=== PATIENT | male | born 1960 | race Asian ===

== ENCOUNTER 2016-11-02 17:46 | Inpatient (IN) | payer MEDICAID, MEDICARE ==
--- NOTE | 2016-11-02 18:05 | ED Physician Chart ---
Chief Complaint/HPI - Patient Information Date Seen:: 11/02/16 Time Seen:: 17:50 Chief Complaint:: shortness of breath History of Present Illness:: After having received dialysis today this patient in the ambulance on the way back to his detention facility developed chest pain and shortness of breath. His pulse ox was 85% on room air. Patient denies chest pain at present. Allergies:: Allergies Allergy/AdvReac Type Severity Reaction Status Date / Time No Known Allergies Allergy Verified 11/02/16 17:53 Historian:: Patient Review:: Nurse's Note Reviewed Review of Systems - Review of Systems General/Constitutional: No fever, No chills Skin: No skin lesions Head: No headache Eyes: No loss of vision ENT: No earache Neck: No neck pain, No thyromegaly Cardio Vascular: Chest pain Pulmonary: SOB GI: No nausea, No vomiting, No diarrhea G/U: No dysuria, No frequency, No hematuria Musculoskeletal: No bone or joint pain, No back pain, No muscle pain Endocrine: No polyuria, No polydipsia Psychiatric: No prior psych history Hematopoietic: No bruising Neurological: No syncope, No focal symptoms Past Medical History - Past Medical History Past Medical History: HTN, CHF, PUD/GERD, Thyroid disorder, Other (anxiety; anemia; renal failure on dialysis; hypothyroidism;pneumonia; status post respiratory failure) Family History: Other (unavailable) Social History: Care Facility Surgical History: other (dialysis shunt; sternotomy) Psychiatricy History: Other (anxiety) Medication: Reviewed Family Medical History - Family Member Mother History Unknown: Yes Physical Exam - Physical Examination General/Constitutional: No distress Head: Atraumatic Eyes: Lids, conjuctiva normal, PERRL Other Skin comments:: Hyperpigmentation of the skin of the lower extremities ENMT: External ears, nose nl, Lips, teeth, gums nl (3 out of 4 poor dental high) Neck: No nuchal rigidity Respiratory: Nl effort/Exclusion, Clear to Auscultation, No Wheeze/Rhonchi/Rales Cardio Vascular: RRR, NL S1 S2 Other Cardio Vascular comments:: 4/6 systolic murmur GI: No tenderness/rebounding/guarding, No organomegaly : No CVA tenderness Extremities: No tenderness or effusion, No edema Neuro/Psych: No focal deficits Labs/Radiology/EKG Results - Lab Results Results: Laboratory Results - last 24 hr 11/02/16 11/02/16 11/02/16 18:18 18:18 18:18 WBC 9.3 RBC 3.32 L Hgb 10.8 L Hct 34.2 L MCV 102.9 H MCH 32.6 H MCHC Differential 31.7 RDW 16.8 Plt Count 116 L MPV 7.4 Neutrophils % 82.9 H Band Neutrophils % 0 Lymphocytes % 4.2 L Monocytes % 12.0 H Eosinophils % 1.3 Basophils % 0.0 Neutrophils (Manual) 80 Lymphocytes 6 L Monocytes 12 H Eosinophils 2 Basophils 0 Platelet Estimate ADEQUATE Platelet Morphology NORMAL RBC Morph Micro Appear NORMAL Sodium 136 Potassium 3.8 Chloride 103 Carbon Dioxide 31.0 Anion Gap 5.8 L BUN 27 H Creatinine 3.5 H Est GFR ( Amer) 23.6 Est GFR (Non-Af Amer) 19.5 BUN/Creatinine Ratio 7.7 Glucose 131 H Calcium 8.5 L Troponin I 0.03 - Radiology Results Results: CXR: cardiomegaly; pulmonary congestion; aortic graft. - EKG Interpretations Rate & Rhythm: NSR rate 91 [place]y: normal Comments:: [facility] ED Septic Shock - . Is Septic Shock (SBP<90, OR Lactate>4 mmol\L) present?: No Reassessment (Disposition) - Reassessment Reassessment Condition:: Unchanged, Improved - Diagnosis Diagnosis:: Atypical chest pain; renal failure on dialysis; hypoxemia - Patient Disposition Admitted to:: Telemetry Admitting Medical Physician:: Kiet Leger Condition at Disposition:: Stable, Improved
[2016-11-02 18:28] LABS: HEMATOCRIT 34.2 % (39.0-49.0); HEMOGLOBIN 10.8 gm/dL (13.2-17.3); MEAN CELL VOLUME 102.9 fl (80-99); MEAN CORPUSCULAR HEMOGLOBIN 32.6 pg (26.0-30.0); MEAN CORPUSCULAR HGB CONC 31.7 pg (28.0-36.0); MEAN PLATELET VOLUME 7.4 fl; NEUTROPHILE ABSOLUTE 7.7 Th/cmm (1.8-8.0); PLATELET COUNT 116 Th/cmm (150-400); RED BLOOD COUNT 3.32 Mil/cmm (4.30-5.70); RED CELL DISTRIBUTION WIDTH 16.8 % (11.5-20.0); WHITE BLOOD COUNT 9.3 Th/cmm (4.8-10.8)
[2016-11-02 18:39] LABS: TOTAL CELLS COUNTED 100
[2016-11-02 18:40] LABS: ANION GAP 5.8 (7.0-16.0); BUN/CREATININE RATIO 7.7; CALCIUM SERUM 8.5 mg/dL (8.6-10.3); CREATININE - SERUM 3.5 mg/dL (0.7-1.3); POTASSIUM SERUM 3.8 mEq/L (3.5-5.1)
[2016-11-02 18:42] LABS: BAND NEUTROPHILE 0 % (0-10); NEUTROPHILS 80 % (40-80)
[2016-11-02 18:43] LABS: BASOPHIL 0 % (0-3); EOSINOPHIL 2 % (0-5); PLATELET ESTIMATE ADEQUATE (NORMAL); PLATELET MORPHOLOGY NORMAL (NORMAL)
[2016-11-02 19:06] LABS: % NEUTROPHILS 82.9 % (40.0-80.0)
[2016-11-02 19:07] LABS: % LYMPHOCYTES 4.2 % (20.0-50.0)
[2016-11-02 19:08] LABS: % EOSINOPHILS 1.3 % (0.0-5.0)
[2016-11-02] MEDS ORDERED: Albuterol/Ipratropium Neb 3 ML AERS HHN ONE ×2 (19:55→20:17)
[2016-11-02] MEDS ORDERED: Non-Formulary Item 1 EA (Fluticasone/Salmeterol [Advair 250-50 Diskus] 1 PUFF) INH PRN (20:49)
[2016-11-02] MEDS: Albuterol/Ipratropium Neb 3 ML AERS HHN SCH (23:37)
[2016-11-03] MEDS: NITROGLYCERIN OINT 2% 1 INCH PACKET TP SCH ×3 (00:09→12:30)
[2016-11-03 05:35] LABS: MAGNESIUM 2.3 mg/dL (1.9-2.7)
--- NOTE | 2016-11-03 08:56 | History and Physical ---
History of Present Illness - HPI Chief Complaint: This patient is unable to provide history. HPI: 56-year-old [place] male who resides in a local [facility] currently getting his dialysis 3 times a week from local dialysis center. Yesterday after finishing his dialysis he was on his way to [facility] ,He complained about chest pain and shortness of breath ,patient was directed to the emergency room at [facility]. patient was seen by [facility] emergency room Igor and subsequently admitted to the hospital after being worked up in the emergency room. As per staff patient was able to eat and that his breakfast and he went to sleep. Patient's doesn't want to talk today. Vital Signs: Last Vital Signs Temp 97 F 11/03/16 04:00 Pulse 90 11/03/16 06:28 Resp 22 11/03/16 04:00 BP 130/80 11/03/16 06:28 Pulse Ox 95 11/03/16 04:00 Past Medical History Cardiovascular: Report: CHF, Other (Possible aortic wall repair versus irritable surgery) Pulmonary: Report: No Pertinent Hx [employer]: Report: No Pertinent Hx GI: Report: No Pertinent Hx Psych: Report: Depression Musculoskeletal: Report: Weakness Rheumatologic: Report: No pertinent Hx Infectious Disease: Report: No Pertinent Hx Renal/: Report: No Pertinent Hx Endocrine: Report: No Pertinent Hx Dermatology: Report: No Pertinent Hx - Past Surgical History Past Surgical History: Other (Sternotomy scar per possible aorta versus aortic wall replacement) Family Medical History - Family Member Mother History Unknown: Yes Social History Smoke: No Alcohol: None Drugs: None Lives: Care Home - Medications Home Medications: Home Medication Medication Instructions Recorded Type Acetaminophen [Tylenol] 2 tab PO Q6HR PRN 11/02/16 History Albuterol/Ipratropium Neb [Duoneb 3 ml HHN Q2HR PRN 11/02/16 History Neb] Albuterol/Ipratropium Neb [Duoneb 3 ml HHN Q4HR 11/02/16 History Neb] Amlodipine Besylate 5 mg PO DAILY 11/02/16 History Bisacodyl [Dulcolax 10 Mg Supp] 10 mg RC DAILY PRN 11/02/16 History Calcitriol [Rocaltrol] 0.25 mcg PO DAILY 11/02/16 History Calcium Acetate [Phoslo] 667 mg PO DAILY 11/02/16 History Clonidine HCl [Catapres] 0.1 mg PO Q6HR PRN 11/02/16 History Famotidine [Pepcid] 20 mg PO BID 11/02/16 History Fluticasone/Salmeterol [Advair 1 puff INH BID PRN 11/02/16 History 250-50 Diskus] Folic Acid [Folate] 1 mg PO DAILY 11/02/16 History Folic Acid/Vit Bcomp,C 0.8 mg PO DAILY 11/02/16 History [Nephro-Mary Lou Tablet] Hydrocodone/Acetaminophen [[place] 1 each PO Q6HR PRN 11/02/16 History 325 mg-5 mg*] Ipratropium/Albuterol Sulfate 3 ml IH DAILY 11/02/16 History [Iprat-Albut 0.5-3(2.5) mg/3 ml] Levothyroxine [Synthroid] 50 mcg PO DAILY 11/02/16 History Lorazepam [Ativan] 0.5 mg PO Q6HR PRN 11/02/16 History Magnesium Hydroxide [Milk of 30 ml PO DAILY PRN 11/02/16 History Magnesia] Metoprolol Tartrate 25 mg PO DAILY 11/02/16 History Na Phos,M-B/Na Phos,Di-Ba [Enema 7 133 ml RC Q8HR PRN 11/02/16 History gm/118 ml-19 gm/118 ml 133 ml] Ondansetron [Zofran ODT] 4 mg PO Q6HR PRN 11/02/16 History Sennosides A and B [Senna] 8.6 mg PO DAILY 11/02/16 History - Allergies Allergies/Adverse Reactions: Allergies Allergy/AdvReac Type Severity Reaction Status Date / Time No Known Allergies Allergy Verified 11/02/16 17:53 Review of Systems - Review of Systems Constitutional: Report: No Significant Eyes: Report: No Significant ENT: Report: No Significant Respiratory: Report: Cough, SOB with Excertion Cardiovascular: Report: Chest Pain, Orthopnea Gastrointestinal: Report: No Significant Genitourinary: Report: No Significant Musculoskeletal: Report: No Significant Skin: Report: No Significant Neurological: Report: No Significant Physical Exam - Physical Exam HEENT: Report: Pale Conjunctiva Neck: Report: Thyromegaly (neck when the Stensen's noted.) Cardiovascular Systems: Report: Systolic Murmur, Irregular rhythm was noted Respiratory: Report: Crackles Abdomen: Report: Non-tender to palpation Back: Report: Inspection of back is within normal limits. Extremities: Report: Non-tender to palpation., No pedal edema was noted on inspection Skin: Report: Color of skin is within normal limits Neuro/Psych: Report: Weakness or sensory loss noted. - Lab Results All Lab Results last 24 hours: Laboratory Last Values WBC 9.3 Th/cmm (4.8-10.8) 11/02/16 18:18 RBC 3.32 Mil/cmm (4.30-5.70) L 11/02/16 18:18 Hgb 10.8 gm/dL (13.2-17.3) L 11/02/16 18:18 Hct 34.2 % (39.0-49.0) L 11/02/16 18:18 MCV 102.9 fl (80-99) H 11/02/16 18:18 MCH 32.6 pg (26.0-30.0) H 11/02/16 18:18 MCHC Differential 31.7 pg (28.0-36.0) 11/02/16 18:18 RDW 16.8 % (11.5-20.0) 11/02/16 18:18 Plt Count 116 Th/cmm (150-400) L 11/02/16 18:18 MPV 7.4 fl 11/02/16 18:18 Neutrophils % 82.9 % (40.0-80.0) H 11/02/16 18:18 Band Neutrophils % 0 % (0-10) 11/02/16 18:18 Lymphocytes % 4.2 % (20.0-50.0) L 11/02/16 18:18 Monocytes % 12.0 % (2.0-10.0) H 11/02/16 18:18 Eosinophils % 1.3 % (0.0-5.0) 11/02/16 18:18 Basophils % 0.0 % (0.0-2.0) 11/02/16 18:18 Neutrophils (Manual) 80 % (40-80) 11/02/16 18:18 Lymphocytes 6 % (20-50) L 11/02/16 18:18 Monocytes 12 % (2-10) H 11/02/16 18:18 Eosinophils 2 % (0-5) 11/02/16 18:18 Basophils 0 % (0-3) 11/02/16 18:18 Platelet Estimate ADEQUATE (NORMAL) 11/02/16 18:18 Platelet Morphology NORMAL (NORMAL) 11/02/16 18:18 RBC Morph Micro Appear NORMAL (NORMAL) 11/02/16 18:18 Sodium 136 mEq/L (136-145) 11/02/16 18:18 Potassium 3.8 mEq/L (3.5-5.1) 11/02/16 18:18 Chloride 103 mEq/L (98-107) 11/02/16 18:18 Carbon Dioxide 31.0 mEq/L (21.0-31.0) 11/02/16 18:18 Anion Gap 5.8 (7.0-16.0) L 11/02/16 18:18 BUN 27 mg/dL (7-25) H 11/02/16 18:18 Creatinine 3.5 mg/dL (0.7-1.3) H 11/02/16 18:18 Est GFR ( Amer) 23.6 ml/min (>90) 11/02/16 18:18 Est GFR (Non-Af Amer) 19.5 ml/min 11/02/16 18:18 BUN/Creatinine Ratio 7.7 11/02/16 18:18 Glucose 131 mg/dL (70-105) H 11/02/16 18:18 Calcium 8.5 mg/dL (8.6-10.3) L 11/02/16 18:18 Magnesium 2.3 mg/dL (1.9-2.7) 11/03/16 02:29 Troponin I 0.02 ng/mL (0.01-0.05) 11/03/16 02:29 Triglycerides 80 mg/dL (<150) 11/03/16 02:29 Cholesterol 138 mg/dL (<200) 11/03/16 02:29 LDL Cholesterol Direct 60 mg/dL (75-193) L 11/03/16 02:29 HDL Cholesterol 59 mg/dL (23-92) 11/03/16 02:29 Laboratory Results - last 24 hr 11/03/16 11/03/16 02:29 02:29 Magnesium 2.3 Troponin I 0.02 Triglycerides 80 Cholesterol 138 LDL Cholesterol Direct 60 L HDL Cholesterol 59 - Assessment Assessment: Acute onset of chest pain shortness of breath etiology needs to determine. Most likely of fluid overload versus congestive heart failure. End-stage renal disease on hemodialysis. Hypertension. Status post aorta versus aortic wall replacement surgery. Generalized debility. Asthma versus COPD. Declining self-care and mobility Anemia of chronic kidney disease - Plan Plan: Admit to telemetry unit. Cardiology consult. Oxygen. Nebulizer treatment. Hemodialysis. 2-D echocardiogram. Cardiac enzymes. General nursing care. Follow lab. Pulmicort. Albuterol and an Atrovent HHN. Follow consultants recommendation. Nephrology evaluation. Appropriate home medication reconciliation. EKG. PTOT. Care plan reviewed and discussed with staff.
[2016-11-03] MEDS: Levothyroxine 0.05 Mg Tab PO SCH (08:59)
[2016-11-03] MEDS: Vitamin B Complex w/Vitamin C Tab PO SCH (09:06)
--- NOTE | 2016-11-03 11:23 | Diagnostic Imaging Report ---
Portable chest x-ray HISTORY: Shortness of breath Compared to prior exam of November 02, 2016, there is evidence of increasing right pleural effusion. Persistent marked cardiomegaly. No change in findings consistent with aneurysmal dilatation of the aortic arch. Intravascular stent traverses the descending thoracic aorta. An additional stent is seen in the region of the left subclavian artery. There are hazy bilateral infiltrates. Findings may be associated with edema related to congestive heart failure. IMPRESSION: 1. Increasing right pleural effusion along with cardiomegaly and bilateral infiltrates suggesting increasing congestive heart failure. 2. Extensive surgical changes as noted above.
[2016-11-03] MEDS: Albuterol/Ipratropium Neb 3 ML AERS HHN SCH ×2 (12:14→17:17)
--- NOTE | 2016-11-03 13:05 | Diagnostic Imaging Report ---
Portable chest x-ray HISTORY: Shortness of breath Prior exams are not available for comparison. The heart is enlarged. There is enlargement of the aortic arch suggesting aneurysm formation. Intravascular stent traverses the aorta. Vascular stent also noted over the region of the left subclavian artery. Multiple surgical clips project over the periclavicular regions of the chest. Hazy infiltrates noted bilaterally probably related to degree of pulmonary edema. Bilateral pleural effusions (right greater than left). IMPRESSION: 1. Changes consistent with congestive heart failure as described above 2. Surgical changes consistent with aortic aneurysm repair/stent placement
--- NOTE | 2016-11-03 15:25 | Consultation ---
Consult Note - Consult Note Service Date: 11/03/16 Consult Note: PHYSICIAN Consultation Note: Date of Admission: 11/02/16 Purpose of Consultation: Hemodialysis Chief Complaint: Patient came in because of chest pain. History of Present Illness: 56-year-old male with past medical history end-stage renal disease on hemodialysis who came in because of chest pain. Patient has a history of chronic CHF and respiratory distress. He has been dialyzed aggressively. He also has history of anxiety during treatment which interferes with his dialysis. A few hours prior to admission, he complained of chest pain along with shortness of breath after his dialysis treatment, on his way to [facility]. He was then brought to the emergency room. Chest x-ray revealed possible CHF. Troponin levels were 0.03 and 0.02. No fever/chills, cough, palpitations or diaphoresis. Past Medical History: ESRD on hemodialysis Essent's sleeping but comfortable, ial hypertension GERD Anxiety disorder Hypothyroidism Chronic CHF Allergies Allergy/AdvReac Type Severity Reaction Status Date / Time No Known Allergies Allergy Verified 11/02/16 17:53 Vital Signs Temp 98.7 F 11/03/16 11:57 Pulse 72 11/03/16 12:30 Resp 20 11/03/16 12:25 BP 95/61 11/03/16 12:30 Pulse Ox 95 11/03/16 12:25 Intake & Output 11/02/16 11/03/16 11/03/16 18:59 06:59 18:59 Intake Total 60 Balance 60 Weight (lbs) 53.977 kg Intake: Oral 60 Other: # Voids 1 # Bowel Movements 1 Laboratory Results - last 24 hr 11/03/16 11/03/16 11/03/16 02:29 02:29 10:30 Magnesium 2.3 Troponin I 0.02 0.02 Triglycerides 80 Cholesterol 138 LDL Cholesterol Direct 60 L HDL Cholesterol 59 Home Medication Medication Instructions Recorded Type Acetaminophen [Tylenol] 2 tab PO Q6HR PRN 11/02/16 History Albuterol/Ipratropium Neb [Duoneb 3 ml HHN Q2HR PRN 11/02/16 History Neb] Albuterol/Ipratropium Neb [Duoneb 3 ml HHN Q4HR 11/02/16 History Neb] Amlodipine Besylate 5 mg PO DAILY 11/02/16 History Bisacodyl [Dulcolax 10 Mg Supp] 10 mg RC DAILY PRN 11/02/16 History Calcitriol [Rocaltrol] 0.25 mcg PO DAILY 11/02/16 History Calcium Acetate [Phoslo] 667 mg PO DAILY 11/02/16 History Clonidine HCl [Catapres] 0.1 mg PO Q6HR PRN 11/02/16 History Famotidine [Pepcid] 20 mg PO BID 11/02/16 History Fluticasone/Salmeterol [Advair 1 puff INH BID PRN 11/02/16 History 250-50 Diskus] Folic Acid [Folate] 1 mg PO DAILY 11/02/16 History Folic Acid/Vit Bcomp,C 0.8 mg PO DAILY 11/02/16 History [Nephro-Mary Lou Tablet] Hydrocodone/Acetaminophen [[place] 1 each PO Q6HR PRN 11/02/16 History 325 mg-5 mg*] Ipratropium/Albuterol Sulfate 3 ml IH DAILY 11/02/16 History [Iprat-Albut 0.5-3(2.5) mg/3 ml] Levothyroxine [Synthroid] 50 mcg PO DAILY 11/02/16 History Lorazepam [Ativan] 0.5 mg PO Q6HR PRN 11/02/16 History Magnesium Hydroxide [Milk of 30 ml PO DAILY PRN 11/02/16 History Magnesia] Metoprolol Tartrate 25 mg PO DAILY 11/02/16 History Na Phos,M-B/Na Phos,Di-Ba [Enema 7 133 ml RC Q8HR PRN 11/02/16 History gm/118 ml-19 gm/118 ml 133 ml] Ondansetron [Zofran ODT] 4 mg PO Q6HR PRN 11/02/16 History Sennosides A and B [Senna] 8.6 mg PO DAILY 11/02/16 History Current Medications Generic Name Dose Route Start Last Admin Trade Name Freq PRN Reason Stop Dose Admin Acetaminophen 650 mg 11/02/16 20:41 Tylenol PO 01/01/17 20:40 Q6H PRN Mild Pain/Headache/T above 101 Albuterol/Ipratropium 3 ml 11/03/16 01:00 11/03/16 12:14 Duoneb Neb HHN 01/02/17 00:59 3 ml Q6HRT OMYARA Administration Aspirin 81 mg 11/03/16 09:00 11/03/16 08:58 Ecotrin PO 01/02/17 08:59 81 mg DAILY OMAYRA Administration Bisacodyl 10 mg 11/02/16 20:49 Dulcolax 10 Mg Supp RC 01/01/17 20:48 DAILY PRN Constipation Budesonide 0.5 mg 11/03/16 12:00 Pulmicort HHN 01/02/17 11:59 BIDRT OMAYRA Calcitriol 0.25 mcg 11/03/16 09:00 11/03/16 08:59 Rocaltrol PO 01/02/17 08:59 0.25 mcg DAILY OMAYRA Administration Calcium Acetate 667 mg 11/03/16 09:00 11/03/16 08:59 Phoslo PO 01/02/17 08:59 667 mg DAILY OMAYRA Administration Famotidine 20 mg 11/03/16 09:00 11/03/16 08:58 Pepcid PO 01/02/17 08:59 20 mg BID OMAYRA Administration Folic Acid 1 mg 11/03/16 09:00 11/03/16 09:00 Folate PO 01/02/17 08:59 1 mg DAILY OMAYRA Administration Levothyroxine Sodium 0.05 mg 11/03/16 09:00 11/03/16 08:59 Synthroid PO 01/02/17 08:59 0.05 mg DAILY OMAYRA Administration Lorazepam 0.5 mg 11/02/16 20:49 11/02/16 23:03 Ativan PO 01/01/17 20:48 0.5 mg Q6HR PRN Administration Agitation Protocol Metoprolol Tartrate 25 mg 11/03/16 09:00 11/03/16 08:58 Lopressor PO 01/02/17 08:59 25 mg BID OMAYRA Administration Miscellaneous 1 ea 11/03/16 12:32 Clinical Monitoring 01/02/17 12:31 DAILY PRN RENAL Morphine Sulfate 2 mg 11/02/16 20:41 Morphine IVP 01/01/17 20:40 Q4H PRN Severe Pain Nitroglycerin 1 inch 11/03/16 00:00 11/03/16 12:30 Nitro-Bid TP 01/02/17 00:00 Not Given Q6HR OMAYRA Ondansetron HCl 4 mg 11/02/16 20:49 Zofran Odt PO 01/01/17 20:48 Q6HR PRN Nausea / Vomiting Senna 8.6 mg 11/03/16 09:00 11/03/16 09:06 Senna PO 01/02/17 08:59 8.6 mg DAILY OMAYRA Administration Simvastatin 40 mg 11/02/16 21:00 11/02/16 23:03 Zocor PO 01/01/17 20:59 40 mg HS OMAYRA Administration Protocol Sodium Chloride 10 ml 11/03/16 08:00 11/03/16 08:00 Saline Flush IV 01/02/17 07:59 10 ml QSHIFT OMAYRA Administration Vitamin B Complex/Vit C/Folic Acid 1 tab 11/03/16 09:00 11/03/16 09:06 Vitamin B Complex W/Vitamin C PO 01/02/17 08:59 1 tab DAILY OMAYRA Administration Review of Systems: A 12 point ROS was reviewed with the pertinent positive and negatives noted in the HPI. Social History Smoking Status Unknown if ever smoked Drug Use No Alcohol Use No Family Medical History Family Medical History Start: 11/02/16 21: 22 Freq: ONCE Status: Active Document 11/02/16 22:00 RSANDRES (Rec: 11/03/16 00:54 [email or web address] [id number] ) Family Medical History Mother History Unknown Yes Physical Exam: General: Sleeping but comfortable HEENT: Extraocular muscles intact, pale conjunctivae Cardio: S1-S2, irregular rhythm Respiratory: Decreased breath sounds with few rhonchi Abdominal: Flat soft positive for bowel sounds Genital/Urinary: Within normal limits Extremities: No edema Neurological: Assessment: End-stage renal disease on hemodialysis Respiratory distress secondary to chronic fluid overload Acute coronary syndrome due to unstable angina Essential hypertension GERD Anxiety disorder Hypothyroidism Plan: Hemodialysis in a.m. Fluid restriction Follow-up electrolytes Monitor fluid status closely Daily weights Signed, Shabnam Laura [id number]
--- NOTE | 2016-11-03 16:01 | Consultation ---
Consult Note - Consult Note Service Date: 11/03/16 Referring Physician: Kiet Leger Consult Note: PHYSICIAN Consultation Note: Date of Admission: 11/02/16 Purpose of Consultation: Congestive heart failure Chief Complaint: Shortness of breath History of Present Illness: Patient ISABEL MCDANIEL was admitted to [facility] Telemetry with RENAL FAILURE,HYPOXEMIA. Past Medical History: Allergies Allergy/AdvReac Type Severity Reaction Status Date / Time No Known Allergies Allergy Verified 11/02/16 17:53 Vital Signs Temp 98.7 F 11/03/16 11:57 Pulse 72 11/03/16 12:30 Resp 20 11/03/16 12:25 BP 95/61 11/03/16 12:30 Pulse Ox 95 11/03/16 12:25 Intake & Output 11/02/16 11/03/16 11/03/16 18:59 06:59 18:59 Intake Total 60 Balance 60 Weight (lbs) 53.977 kg Intake: Oral 60 Other: # Voids 1 # Bowel Movements 1 Laboratory Results - last 24 hr 11/03/16 11/03/16 11/03/16 02:29 02:29 10:30 Magnesium 2.3 Troponin I 0.02 0.02 Triglycerides 80 Cholesterol 138 LDL Cholesterol Direct 60 L HDL Cholesterol 59 Home Medication Medication Instructions Recorded Type Acetaminophen [Tylenol] 2 tab PO Q6HR PRN 11/02/16 History Albuterol/Ipratropium Neb [Duoneb 3 ml HHN Q2HR PRN 11/02/16 History Neb] Albuterol/Ipratropium Neb [Duoneb 3 ml HHN Q4HR 11/02/16 History Neb] Amlodipine Besylate 5 mg PO DAILY 11/02/16 History Bisacodyl [Dulcolax 10 Mg Supp] 10 mg RC DAILY PRN 11/02/16 History Calcitriol [Rocaltrol] 0.25 mcg PO DAILY 11/02/16 History Calcium Acetate [Phoslo] 667 mg PO DAILY 11/02/16 History Clonidine HCl [Catapres] 0.1 mg PO Q6HR PRN 11/02/16 History Famotidine [Pepcid] 20 mg PO BID 11/02/16 History Fluticasone/Salmeterol [Advair 1 puff INH BID PRN 11/02/16 History 250-50 Diskus] Folic Acid [Folate] 1 mg PO DAILY 11/02/16 History Folic Acid/Vit Bcomp,C 0.8 mg PO DAILY 11/02/16 History [Nephro-[place] Tablet] Hydrocodone/Acetaminophen [[place] 1 each PO Q6HR PRN 11/02/16 History 325 mg-5 mg*] Ipratropium/Albuterol Sulfate 3 ml IH DAILY 11/02/16 History [Iprat-Albut 0.5-3(2.5) mg/3 ml] Levothyroxine [Synthroid] 50 mcg PO DAILY 11/02/16 History Lorazepam [Ativan] 0.5 mg PO Q6HR PRN 11/02/16 History Magnesium Hydroxide [Milk of 30 ml PO DAILY PRN 11/02/16 History Magnesia] Metoprolol Tartrate 25 mg PO DAILY 11/02/16 History Na Phos,M-B/Na Phos,Di-Ba [Enema 7 133 ml RC Q8HR PRN 11/02/16 History gm/118 ml-19 gm/118 ml 133 ml] Ondansetron [Zofran ODT] 4 mg PO Q6HR PRN 11/02/16 History Sennosides A and B [Senna] 8.6 mg PO DAILY 11/02/16 History Current Medications Generic Name Dose Route Start Last Admin Trade Name Freq PRN Reason Stop Dose Admin Acetaminophen 650 mg 11/02/16 20:41 Tylenol PO 01/01/17 20:40 Q6H PRN Mild Pain/Headache/T above 101 Albuterol/Ipratropium 3 ml 11/03/16 01:00 11/03/16 12:14 Duoneb Neb [facility] 01/02/17 00:59 3 ml Q6HRT [facility] Administration Aspirin 81 mg 11/03/16 09:00 11/03/16 08:58 Ecotrin PO 01/02/17 08:59 81 mg DAILY [facility] Administration Bisacodyl 10 mg 11/02/16 20:49 Dulcolax 10 Mg Supp [facility] 01/01/17 20:48 DAILY PRN Constipation Budesonide 0.5 mg 11/03/16 12:00 Pulmicort [facility] 01/02/17 11:59 BIDRT [facility] Calcitriol 0.25 mcg 11/03/16 09:00 11/03/16 08:59 Rocaltrol PO 01/02/17 08:59 0.25 mcg DAILY [facility] Administration Calcium Acetate 667 mg 11/03/16 09:00 11/03/16 08:59 Phoslo PO 01/02/17 08:59 667 mg DAILY [facility] Administration Famotidine 20 mg 11/03/16 09:00 11/03/16 08:58 Pepcid PO 01/02/17 08:59 20 mg BID [facility] Administration Folic Acid 1 mg 11/03/16 09:00 11/03/16 09:00 Folate PO 01/02/17 08:59 1 mg DAILY [facility] Administration Levothyroxine Sodium 0.05 mg 11/03/16 09:00 11/03/16 08:59 Synthroid PO 01/02/17 08:59 0.05 mg DAILY [facility] Administration Lorazepam 0.5 mg 11/02/16 20:49 11/02/16 23:03 Ativan PO 01/01/17 20:48 0.5 mg Q6HR PRN Administration Agitation Protocol Metoprolol Tartrate 25 mg 11/03/16 09:00 11/03/16 08:58 Lopressor PO 01/02/17 08:59 25 mg BID [facility] Administration Miscellaneous 1 ea 11/03/16 12:32 Clinical Monitoring 01/02/17 12:31 DAILY PRN RENAL Morphine Sulfate 2 mg 11/02/16 20:41 Morphine IVP 01/01/17 20:40 Q4H PRN Severe Pain Nitroglycerin 1 inch 11/03/16 00:00 11/03/16 12:30 Nitro-Bid TP 01/02/17 00:00 Not Given Q6HR [facility] Ondansetron HCl 4 mg 11/02/16 20:49 Zofran Odt PO 01/01/17 20:48 Q6HR PRN Nausea / Vomiting Senna 8.6 mg 11/03/16 09:00 11/03/16 09:06 Senna PO 01/02/17 08:59 8.6 mg DAILY [facility] Administration Simvastatin 40 mg 11/02/16 21:00 11/02/16 23:03 Zocor PO 01/01/17 20:59 40 mg HS [facility] Administration Protocol Sodium Chloride 10 ml 11/03/16 08:00 11/03/16 08:00 Saline Flush IV 01/02/17 07:59 10 ml QSHIFT [facility] Administration Vitamin B Complex/Vit C/Folic Acid 1 tab 11/03/16 09:00 11/03/16 09:06 Vitamin B Complex W/Vitamin C PO 01/02/17 08:59 1 tab DAILY [facility] Administration Review of Systems: A 12 point ROS was reviewed with the pertinent positive and negatives noted in the HPI. Social History Smoking Status Unknown if ever smoked Drug Use No Alcohol Use No Family Medical History Family Medical History Start: 11/02/16 21: 22 Freq: ONCE Status: Active Document 11/02/16 22:00 RSANDRES (Rec: 11/03/16 00:54 RSANDRES [id number] ) Family Medical History Mother History Unknown Yes Physical Exam: General: Shortness of breath HEENT: Unremarkable Cardio: S1-S2 S3-S4 soft systolic murmur Respiratory: Occasional wheezes and rales Abdominal: No organomegaly Genital/Urinary: Remarkable Extremities: No pedal edema peripheral pulses normal Neurological: No focal neurological deficit Assessment: Chest pain Stable angina EKG states Sunday end-stage renal disease on dialysis Congestive heart failure diastolic dysfunction COPD Deficiency anemia Hypothyroid Current Plan: Dialysis with ultrafiltration echocardiogram Signed, Greg Gilmore. 11/03/[id number]
--- NOTE | 2016-11-03 16:56 | Cardiology ---
Cardiology Report - Cardiology Cardiology: Date of Service: 11/03/[address] shannan beltran M-MODE ECHOCARDIOLGRAM: The mitral valve normal left ventricle hypertrophy ejection fraction 50% left Atrium normal aortic root normal aortic leaflets are normal CONCLUSION: Hypertrophied left ventricle ejection fraction 50% 2D ECHO: Long axis left ventricle hypertrophy ejection fraction 50% mitral valve normal aortic root normal aortic leaflets normal Short axis mitral normal aortic valve normal Apical 4 chamber left ventricle hypertrophy left atrium normal right ventricle normal right atrium normal CONCLUSION: Hypertrophy left ventricle ejection fraction 50% DOPPLER: Mild tricuspid regurgitation and mild mitral regurgitation mild aortic regurgitation mild pulmonary regurgitation right ventricular systolic pressure 62 mmHg moderate to severe pulmonary hypertension CONCLUSION: Hypertrophy left ventricle Mild mitral regurgitation mild to moderate tricuspid regurgitation mild aortic regurgitation mild pulmonary regurgitation moderate to severe pulmonary hypertension ejection fraction 50%
[2016-11-04] MEDS: Albuterol/Ipratropium Neb 3 ML AERS HHN SCH ×4 (00:57→19:05)
[2016-11-04] MEDS: NITROGLYCERIN OINT 2% 1 INCH PACKET TP SCH ×4 (01:00→18:24)
[2016-11-04 07:20] LABS: ALB/GLOB RATIO 1.3 (1.0-1.8); ANION GAP 8.4 (7.0-16.0); BILIRUBIN,TOTAL 0.6 mg/dL (0.3-1.0); BUN/CREATININE RATIO 8.7; CALCIUM SERUM 8.3 mg/dL (8.6-10.3); CARBON DIOXIDE 29.9 mEq/L (21.0-31.0); MAGNESIUM 2.6 mg/dL (1.9-2.7); PHOSPHOROUS 7.4 mg/dL (2.5-5.0); POTASSIUM SERUM 5.3 mEq/L (3.5-5.1)
[2016-11-04 07:31] LABS: HEMOGLOBIN 11.5 gm/dL (13.2-17.3); MEAN CORPUSCULAR HEMOGLOBIN 32.2 pg (26.0-30.0); MEAN CORPUSCULAR HGB CONC 30.4 pg (28.0-36.0); MEAN PLATELET VOLUME 8.1 fl; PLATELET COUNT 127 Th/cmm (150-400); RED BLOOD COUNT 3.56 Mil/cmm (4.30-5.70); RED CELL DISTRIBUTION WIDTH 17.6 % (11.5-20.0); WHITE BLOOD COUNT 8.6 Th/cmm (4.8-10.8)
[2016-11-04] MEDS: Budesonide 0.5 Mg/2 mL Ud HHN SCH ×2 (07:43→19:06)
[2016-11-04 08:07] LABS: ANISOCYTOSIS 2+; BAND NEUTROPHILE 1 % (0-10); NEUTROPHILS 85 % (40-80); PLATELET ESTIMATE ADEQUATE (NORMAL); TOTAL CELLS COUNTED 100
[2016-11-04] MEDS: Levothyroxine 0.05 Mg Tab PO SCH (09:48)
[2016-11-04] MEDS: Vitamin B Complex w/Vitamin C Tab PO SCH (09:48)
--- NOTE | 2016-11-04 12:03 | Internal Medicine Prog Note ---
Internal Medicine Subjective - Subjective Service Date: 11/04/16 Patient seen and examined:: with staff Patient is:: awake, eyes closed, arousable Patient Complaints of:: other (unable to give meaningful history from patiente barrier.unable to get meaning ful history due to [place]) Per staff patient has:: no adverse event Internal Medicine Objective - Results Result Diagrams: 11/04/16 06:39 11/04/16 06:39 Recent Labs: Laboratory Last Values WBC 8.6 Th/cmm (4.8-10.8) 11/04/16 06:39 RBC 3.56 Mil/cmm (4.30-5.70) L 11/04/16 06:39 Hgb 11.5 gm/dL (13.2-17.3) L 11/04/16 06:39 Hct 37.8 % (39.0-49.0) L D 11/04/16 06:39 MCV 102.9 fl (80-99) H 11/02/16 18:18 MCH 32.2 pg (26.0-30.0) H 11/04/16 06:39 MCHC Differential 30.4 pg (28.0-36.0) 11/04/16 06:39 RDW 17.6 % (11.5-20.0) 11/04/16 06:39 Plt Count 127 Th/cmm (150-400) L 11/04/16 06:39 MPV 8.1 fl 11/04/16 06:39 Neutrophils % 82.9 % (40.0-80.0) H 11/02/16 18:18 Band Neutrophils % 1 % (0-10) 11/04/16 06:39 Lymphocytes % 4.2 % (20.0-50.0) L 11/02/16 18:18 Monocytes % 12.0 % (2.0-10.0) H 11/02/16 18:18 Eosinophils % 1.3 % (0.0-5.0) 11/02/16 18:18 Basophils % 0.0 % (0.0-2.0) 11/02/16 18:18 Neutrophils (Manual) 85 % (40-80) H 11/04/16 06:39 Lymphocytes 6 % (20-50) L 11/04/16 06:39 Monocytes 8 % (2-10) 11/04/16 06:39 Eosinophils 2 % (0-5) 11/02/16 18:18 Basophils 0 % (0-3) 11/02/16 18:18 Platelet Estimate ADEQUATE (NORMAL) 11/04/16 06:39 Platelet Morphology NORMAL (NORMAL) 11/02/16 18:18 Anisocytosis 2+ 11/04/16 06:39 Macrocytosis 2+ 11/04/16 06:39 RBC Morph Micro Appear NORMAL (NORMAL) 11/02/16 18:18 Sodium 133 mEq/L (136-145) L 11/04/16 06:39 Potassium 5.3 mEq/L (3.5-5.1) H 11/04/16 06:39 Chloride 100 mEq/L (98-107) 11/04/16 06:39 Carbon Dioxide 29.9 mEq/L (21.0-31.0) 11/04/16 06:39 Anion Gap 8.4 (7.0-16.0) 11/04/16 06:39 BUN 52 mg/dL (7-25) H 11/04/16 06:39 Creatinine 6.0 mg/dL (0.7-1.3) H* 11/04/16 06:39 Est GFR ( Amer) 12.7 ml/min (>90) 11/04/16 06:39 Est GFR (Non-Af Amer) 10.5 ml/min 11/04/16 06:39 BUN/Creatinine Ratio 8.7 11/04/16 06:39 Glucose 117 mg/dL (70-105) H 11/04/16 06:39 Calcium 8.3 mg/dL (8.6-10.3) L 11/04/16 06:39 Phosphorus 7.4 mg/dL (2.5-5.0) H 11/04/16 06:39 Magnesium 2.6 mg/dL (1.9-2.7) 11/04/16 06:39 Total Bilirubin 0.6 mg/dL (0.3-1.0) 11/04/16 06:39 AST 11 U/L (13-39) L 11/04/16 06:39 ALT 11 U/L (7-52) 11/04/16 06:39 Alkaline Phosphatase 180 U/L (34-104) H 11/04/16 06:39 Troponin I 0.01 ng/mL (0.01-0.05) 11/03/16 20:06 B-Natriuretic Peptide 2610.0 pg/mL (5.0-100.0) H 11/04/16 06:39 Total Protein 6.3 gm/dL (6.0-8.3) 11/04/16 06:39 Albumin 3.5 gm/dL (4.2-5.5) L 11/04/16 06:39 Globulin 2.8 gm/dL 11/04/16 06:39 Albumin/Globulin Ratio 1.3 (1.0-1.8) 11/04/16 06:39 Triglycerides 80 mg/dL (<150) 11/03/16 02:29 Cholesterol 138 mg/dL (<200) 11/03/16 02:29 LDL Cholesterol Direct 60 mg/dL (75-193) L 11/03/16 02:29 HDL Cholesterol 59 mg/dL (23-92) 11/03/16 02:29 - Physical Exam Vitals and I&O: Vital Signs Temp 98.0 F 11/03/16 15:00 Pulse 80 11/04/16 09:49 Resp 17 11/04/16 08:00 BP 101/61 11/04/16 09:49 Pulse Ox 96 11/04/16 07:55 Intake & Output 11/03/16 11/04/16 11/04/16 18:59 06:59 18:59 Intake Total 100 Balance 100 Weight (lbs) 54.431 kg 54.431 kg Intake: Oral 100 Other: # Bowel Movements 0 Active Medications: Current Medications Acetaminophen (Tylenol) 650 mg PO Q6H PRN PRN Reason: Mild Pain/Headache/T above 101 Stop: 01/01/17 20:40 Albuterol/Ipratropium (Duoneb Neb) 3 ml HHN Q6HRT [facility] Stop: 01/02/17 00:59 Last Admin: 11/04/16 07:43 Dose: 3 ml Aspirin (Ecotrin) 81 mg PO DAILY [facility] Stop: 01/02/17 08:59 Last Admin: 11/04/16 09:48 Dose: 81 mg Bisacodyl (Dulcolax 10 Mg Supp) 10 mg RC DAILY PRN PRN Reason: Constipation Stop: 01/01/17 20:48 Budesonide (Pulmicort) 0.5 mg HHN BIDRT [facility] Stop: 01/02/17 11:59 Last Admin: 11/04/16 07:43 Dose: 0.5 mg Calcitriol (Rocaltrol) 0.25 mcg PO DAILY [facility] Stop: 01/02/17 08:59 Last Admin: 11/04/16 09:48 Dose: 0.25 mcg Calcium Acetate (Phoslo) 667 mg PO DAILY [facility] Stop: 01/02/17 08:59 Last Admin: 11/04/16 09:48 Dose: 667 mg Famotidine (Pepcid) 20 mg PO BID [facility] Stop: 01/02/17 08:59 Last Admin: 11/04/16 09:48 Dose: 20 mg Folic Acid (Folate) 1 mg PO DAILY [facility] Stop: 01/02/17 08:59 Last Admin: 11/04/16 09:48 Dose: 1 mg Levothyroxine Sodium (Synthroid) 0.05 mg PO DAILY [facility] Stop: 01/02/17 08:59 Last Admin: 11/04/16 09:48 Dose: 0.05 mg Lorazepam (Ativan) 0.5 mg PO Q6HR PRN; Protocol PRN Reason: Agitation Stop: 01/01/17 20:48 Last Admin: 11/03/16 16:31 Dose: 0.5 mg Metoprolol Tartrate (Lopressor) 25 mg PO BID [facility] Stop: 01/02/17 08:59 Last Admin: 11/04/16 09:49 Dose: Not Given Miscellaneous (Clinical Monitoring) 1 ea MC DAILY PRN PRN Reason: RENAL Stop: 01/02/17 12:31 Morphine Sulfate (Morphine) 2 mg IVP Q4H PRN PRN Reason: Severe Pain Stop: 01/01/17 20:40 Nitroglycerin (Nitro-Bid) 1 inch TP Q6HR [facility] Stop: 01/02/17 00:00 Last Admin: 11/04/16 06:48 Dose: Not Given Ondansetron HCl (Zofran Odt) 4 mg PO Q6HR PRN PRN Reason: Nausea / Vomiting Stop: 01/01/17 20:48 Senna (Senna) 8.6 mg PO DAILY [facility] Stop: 01/02/17 08:59 Last Admin: 11/04/16 09:48 Dose: 8.6 mg Simvastatin (Zocor) 40 mg PO HS [facility] PRN Reason: Protocol Stop: 01/01/17 20:59 Last Admin: 11/03/16 22:35 Dose: Not Given Sodium Chloride (Saline Flush) 10 ml IV QSHIFT [facility] Stop: 01/02/17 07:59 Last Admin: 11/04/16 09:55 Dose: 10 ml Vitamin B Complex/Vit C/Folic Acid (Vitamin B Complex W/Vitamin C) 1 tab PO DAILY [facility] Stop: 01/02/17 08:59 Last Admin: 11/04/16 09:48 Dose: 1 tab General: weak, lethargic HEENT: NC/AT, thyromegaly Neck: Supple, + JVD Lungs: rales Cardiovascular: RRR, with murmur Abdomen: soft, non-tender, non-distended Extremities: clear Neurological: no change Internal Medicine Assmt/Plan - Assessment Assessment: Acute onset of chest pain shortness of breath etiology needs to determine. Most likely of fluid overload versus congestive heart failure. End-stage renal disease on hemodialysis. Hypertension. Status post aorta versus aortic wall replacement surgery. Generalized debility. Asthma versus COPD. Declining self-care and mobility Anemia of chronic kidney disease - Plan Plan: Admit to telemetry unit. Cardiology consult. Oxygen. Nebulizer treatment. Hemodialysis. 2-D echocardiogram pending. General nursing care. Follow lab. Pulmicort. Albuterol and an Atrovent HHN. Follow consultants recommendation. Appropriate home medication reconciliation. EKG. PT OT. Care plan reviewed and discussed with staff.
--- NOTE | 2016-11-04 13:24 | General Progress Note ---
Subjective - Review of Systems Service Date: 11/04/16 Subjective: sleeping, comfortable Objective - Results Result Diagrams: 11/04/16 06:39 11/04/16 06:39 Recent Labs: Laboratory Last Values WBC 8.6 Th/cmm (4.8-10.8) 11/04/16 06:39 RBC 3.56 Mil/cmm (4.30-5.70) L 11/04/16 06:39 Hgb 11.5 gm/dL (13.2-17.3) L 11/04/16 06:39 Hct 37.8 % (39.0-49.0) L D 11/04/16 06:39 MCV 102.9 fl (80-99) H 11/02/16 18:18 MCH 32.2 pg (26.0-30.0) H 11/04/16 06:39 MCHC Differential 30.4 pg (28.0-36.0) 11/04/16 06:39 RDW 17.6 % (11.5-20.0) 11/04/16 06:39 Plt Count 127 Th/cmm (150-400) L 11/04/16 06:39 MPV 8.1 fl 11/04/16 06:39 Neutrophils % 82.9 % (40.0-80.0) H 11/02/16 18:18 Band Neutrophils % 1 % (0-10) 11/04/16 06:39 Lymphocytes % 4.2 % (20.0-50.0) L 11/02/16 18:18 Monocytes % 12.0 % (2.0-10.0) H 11/02/16 18:18 Eosinophils % 1.3 % (0.0-5.0) 11/02/16 18:18 Basophils % 0.0 % (0.0-2.0) 11/02/16 18:18 Neutrophils (Manual) 85 % (40-80) H 11/04/16 06:39 Lymphocytes 6 % (20-50) L 11/04/16 06:39 Monocytes 8 % (2-10) 11/04/16 06:39 Eosinophils 2 % (0-5) 11/02/16 18:18 Basophils 0 % (0-3) 11/02/16 18:18 Platelet Estimate ADEQUATE (NORMAL) 11/04/16 06:39 Platelet Morphology NORMAL (NORMAL) 11/02/16 18:18 Anisocytosis 2+ 11/04/16 06:39 Macrocytosis 2+ 11/04/16 06:39 RBC Morph Micro Appear NORMAL (NORMAL) 11/02/16 18:18 Sodium 133 mEq/L (136-145) L 11/04/16 06:39 Potassium 5.3 mEq/L (3.5-5.1) H 11/04/16 06:39 Chloride 100 mEq/L (98-107) 11/04/16 06:39 Carbon Dioxide 29.9 mEq/L (21.0-31.0) 11/04/16 06:39 Anion Gap 8.4 (7.0-16.0) 11/04/16 06:39 BUN 52 mg/dL (7-25) H 11/04/16 06:39 Creatinine 6.0 mg/dL (0.7-1.3) H* 11/04/16 06:39 Est GFR ( Amer) 12.7 ml/min (>90) 11/04/16 06:39 Est GFR (Non-Af Amer) 10.5 ml/min 11/04/16 06:39 BUN/Creatinine Ratio 8.7 11/04/16 06:39 Glucose 117 mg/dL (70-105) H 11/04/16 06:39 Calcium 8.3 mg/dL (8.6-10.3) L 11/04/16 06:39 Phosphorus 7.4 mg/dL (2.5-5.0) H 11/04/16 06:39 Magnesium 2.6 mg/dL (1.9-2.7) 11/04/16 06:39 Total Bilirubin 0.6 mg/dL (0.3-1.0) 11/04/16 06:39 AST 11 U/L (13-39) L 11/04/16 06:39 ALT 11 U/L (7-52) 11/04/16 06:39 Alkaline Phosphatase 180 U/L (34-104) H 11/04/16 06:39 Troponin I 0.01 ng/mL (0.01-0.05) 11/03/16 20:06 B-Natriuretic Peptide 2610.0 pg/mL (5.0-100.0) H 11/04/16 06:39 Total Protein 6.3 gm/dL (6.0-8.3) 11/04/16 06:39 Albumin 3.5 gm/dL (4.2-5.5) L 11/04/16 06:39 Globulin 2.8 gm/dL 11/04/16 06:39 Albumin/Globulin Ratio 1.3 (1.0-1.8) 11/04/16 06:39 Triglycerides 80 mg/dL (<150) 11/03/16 02:29 Cholesterol 138 mg/dL (<200) 11/03/16 02:29 LDL Cholesterol Direct 60 mg/dL (75-193) L 11/03/16 02:29 HDL Cholesterol 59 mg/dL (23-92) 11/03/16 02:29 - Physical Exam Vitals and I&O: Vital Signs Temp 98.0 F 11/03/16 15:00 Pulse 80 11/04/16 09:49 Resp 17 11/04/16 08:00 BP 101/61 11/04/16 09:49 Pulse Ox 96 11/04/16 07:55 Intake & Output 11/03/16 11/04/16 11/04/16 18:59 06:59 18:59 Intake Total 100 Balance 100 Weight (lbs) 54.431 kg 54.431 kg Intake: Oral 100 Other: # Bowel Movements 0 Active Medications: Current Medications Acetaminophen (Tylenol) 650 mg PO Q6H PRN PRN Reason: Mild Pain/Headache/T above 101 Stop: 01/01/17 20:40 Albuterol/Ipratropium (Duoneb Neb) 3 ml HHN Q6HRT [facility] Stop: 01/02/17 00:59 Last Admin: 11/04/16 07:43 Dose: 3 ml Aspirin (Ecotrin) 81 mg PO DAILY [facility] Stop: 01/02/17 08:59 Last Admin: 11/04/16 09:48 Dose: 81 mg Bisacodyl (Dulcolax 10 Mg Supp) 10 mg RC DAILY PRN PRN Reason: Constipation Stop: 01/01/17 20:48 Budesonide (Pulmicort) 0.5 mg HHN BIDRT [facility] Stop: 01/02/17 11:59 Last Admin: 11/04/16 07:43 Dose: 0.5 mg Calcitriol (Rocaltrol) 0.25 mcg PO DAILY [facility] Stop: 01/02/17 08:59 Last Admin: 11/04/16 09:48 Dose: 0.25 mcg Calcium Acetate (Phoslo) 667 mg PO DAILY [facility] Stop: 01/02/17 08:59 Last Admin: 11/04/16 09:48 Dose: 667 mg Famotidine (Pepcid) 20 mg PO BID [facility] Stop: 01/02/17 08:59 Last Admin: 11/04/16 09:48 Dose: 20 mg Folic Acid (Folate) 1 mg PO DAILY [facility] Stop: 01/02/17 08:59 Last Admin: 11/04/16 09:48 Dose: 1 mg Levothyroxine Sodium (Synthroid) 0.05 mg PO DAILY [facility] Stop: 01/02/17 08:59 Last Admin: 11/04/16 09:48 Dose: 0.05 mg Lorazepam (Ativan) 0.5 mg PO Q6HR PRN; Protocol PRN Reason: Agitation Stop: 01/01/17 20:48 Last Admin: 11/03/16 16:31 Dose: 0.5 mg Metoprolol Tartrate (Lopressor) 25 mg PO BID [facility] Stop: 01/02/17 08:59 Last Admin: 11/04/16 09:49 Dose: Not Given Miscellaneous (Clinical Monitoring) 1 ea MC DAILY PRN PRN Reason: RENAL Stop: 01/02/17 12:31 Morphine Sulfate (Morphine) 2 mg IVP Q4H PRN PRN Reason: Severe Pain Stop: 01/01/17 20:40 Nitroglycerin (Nitro-Bid) 1 inch TP Q6HR [facility] Stop: 01/02/17 00:00 Last Admin: 11/04/16 06:48 Dose: Not Given Ondansetron HCl (Zofran Odt) 4 mg PO Q6HR PRN PRN Reason: Nausea / Vomiting Stop: 01/01/17 20:48 Senna (Senna) 8.6 mg PO DAILY [facility] Stop: 01/02/17 08:59 Last Admin: 11/04/16 09:48 Dose: 8.6 mg Simvastatin (Zocor) 40 mg PO HS [facility] PRN Reason: Protocol Stop: 01/01/17 20:59 Last Admin: 11/03/16 22:35 Dose: Not Given Sodium Chloride (Saline Flush) 10 ml IV QSHIFT [facility] Stop: 01/02/17 07:59 Last Admin: 11/04/16 09:55 Dose: 10 ml Vitamin B Complex/Vit C/Folic Acid (Vitamin B Complex W/Vitamin C) 1 tab PO DAILY [facility] Stop: 01/02/17 08:59 Last Admin: 11/04/16 09:48 Dose: 1 tab General: Mild distress HEENT: Atraumatic, Mucous membr. moist/pink Neck: Supple, +2 carotid pulse wo bruit Cardiovascular: Regular rate, Normal S1, Normal S2 Lungs: Other (rhonchi, no wheeze) Abdomen: Bowel sounds, Soft Extremities: no Edema Neurological: Sensation intact Skin: no Rash Psych/Mental Status: Mood NL Assessment/Plan - Assessment Assessment: ESRD on hemodialysis Essential hypertension Anemia of chronic kidney disease GERD Acute coronary syndrome secondary to unstable angina Respiratory distress secondary to fluid overload, possible acute on chronic CHF Hypothyroidism Anxiety disorder - Plan Plan: Lab - Result Diagrams 11/04/16 06:39 11/04/16 06:39 Current Medications Acetaminophen (Tylenol) 650 mg PO Q6H PRN PRN Reason: Mild Pain/Headache/T above 101 Stop: 01/01/17 20:40 Albuterol/Ipratropium (Duoneb Neb) 3 ml HHN Q6HRT [facility] Stop: 01/02/17 00:59 Last Admin: 11/04/16 07:43 Dose: 3 ml Aspirin (Ecotrin) 81 mg PO DAILY [facility] Stop: 01/02/17 08:59 Last Admin: 11/04/16 09:48 Dose: 81 mg Bisacodyl (Dulcolax 10 Mg Supp) 10 mg RC DAILY PRN PRN Reason: Constipation Stop: 01/01/17 20:48 Budesonide (Pulmicort) 0.5 mg HHN BIDRT [facility] Stop: 01/02/17 11:59 Last Admin: 11/04/16 07:43 Dose: 0.5 mg Calcitriol (Rocaltrol) 0.25 mcg PO DAILY [facility] Stop: 01/02/17 08:59 Last Admin: 11/04/16 09:48 Dose: 0.25 mcg Calcium Acetate (Phoslo) 667 mg PO DAILY [facility] Stop: 01/02/17 08:59 Last Admin: 11/04/16 09:48 Dose: 667 mg Famotidine (Pepcid) 20 mg PO BID [facility] Stop: 01/02/17 08:59 Last Admin: 11/04/16 09:48 Dose: 20 mg Folic Acid (Folate) 1 mg PO DAILY [facility] Stop: 01/02/17 08:59 Last Admin: 11/04/16 09:48 Dose: 1 mg Levothyroxine Sodium (Synthroid) 0.05 mg PO DAILY [facility] Stop: 01/02/17 08:59 Last Admin: 11/04/16 09:48 Dose: 0.05 mg Lorazepam (Ativan) 0.5 mg PO Q6HR PRN; Protocol PRN Reason: Agitation Stop: 01/01/17 20:48 Last Admin: 11/03/16 16:31 Dose: 0.5 mg Metoprolol Tartrate (Lopressor) 25 mg PO BID [facility] Stop: 01/02/17 08:59 Last Admin: 11/04/16 09:49 Dose: Not Given Miscellaneous (Clinical Monitoring) 1 ea MC DAILY PRN PRN Reason: RENAL Stop: 01/02/17 12:31 Morphine Sulfate (Morphine) 2 mg IVP Q4H PRN PRN Reason: Severe Pain Stop: 01/01/17 20:40 Nitroglycerin (Nitro-Bid) 1 inch TP Q6HR [facility] Stop: 01/02/17 00:00 Last Admin: 11/04/16 06:48 Dose: Not Given Ondansetron HCl (Zofran Odt) 4 mg PO Q6HR PRN PRN Reason: Nausea / Vomiting Stop: 01/01/17 20:48 Senna (Senna) 8.6 mg PO DAILY [facility] Stop: 01/02/17 08:59 Last Admin: 11/04/16 09:48 Dose: 8.6 mg Simvastatin (Zocor) 40 mg PO HS [facility] PRN Reason: Protocol Stop: 01/01/17 20:59 Last Admin: 11/03/16 22:35 Dose: Not Given Sodium Chloride (Saline Flush) 10 ml IV QSHIFT [facility] Stop: 01/02/17 07:59 Last Admin: 11/04/16 09:55 Dose: 10 ml Vitamin B Complex/Vit C/Folic Acid (Vitamin B Complex W/Vitamin C) 1 tab PO DAILY [facility] Stop: 01/02/17 08:59 Last Admin: 11/04/16 09:48 Dose: 1 tab Scheduled for hemodialysis today and again in a.m. due to worsening CHF on chest x-ray Fluid restriction Daily weights Serial chest x-ray
[2016-11-04 14:17] LABS: HEMATOCRIT 37.8 % (39.0-49.0)
[2016-11-04] MEDS ORDERED: fentaNYL Citrate 100 mcg/2mL Vial IVP ONE (20:29)
--- NOTE | 2016-11-04 20:40 | ED Physician Chart ---
Chief Complaint/HPI - Patient Information Date Seen:: 11/04/16 Time Seen:: 20:35 Chief Complaint:: hypercapnia History of Present Illness:: 56-year-old male, admitted, treated end-stage renal disease on hemodialysis, with acute, severe, constant, hypercapnia with ABG showing CO2 levels greater than 130. Has associated lethargy and altered level of consciousness. Symptoms started earlier today. Limited history due to patient's altered mental status History provided by nursing staff Allergies:: Allergies Allergy/AdvReac Type Severity Reaction Status Date / Time No Known Allergies Allergy Verified 11/02/16 17:53 Review of Systems - Review of Systems Other: Complete system review otherwise unremarkable except as noted in history of present illness. Past Medical History - Past Medical History Past Medical History: ESRD Family History: None Social History: Non Smoker, No Alcohol, No Drug Use Surgical History: None Medication: Reviewed Family Medical History - Family Member Mother History Unknown: Yes Physical Exam - Physical Examination Other:: INITIAL VITAL SIGNS: Reviewed by me GENERAL: Patient is lying on gurney HEAD: Head is normocephalic. No evidence of trauma. No scalp or facial swelling EYES: No scleral icterus bilaterally ENT: Oropharynx is clear of exudate and erythema NECK: Supple. No meningismus. No masses. No evidence of trauma. No cervical spine bony step-offs or crepitus to palpation RESPIRATORY: No tachypnea. Clear to auscultation bilaterally. CV: Regular rate and rhythm. No murmurs, rubs, or gallops ABDOMEN: Soft, non-distended. No masses BACK: No ecchymoses. No evidence of trauma EXTREMITIES: Normal to inspection and palpation. No deformity SKIN: Warm and dry. No obvious rash. No jaundice NEUROLOGIC: Face is symmetric. Withdraws to pain in all extremities Labs/Radiology/EKG Results - Lab Results Results: Laboratory Tests 11/02/16 11/02/16 11/02/16 18:18 18:18 18:18 WBC 9.3 RBC 3.32 L Hgb 10.8 L Hct 34.2 L MCV 102.9 H MCH 32.6 H MCHC Differential 31.7 RDW 16.8 Plt Count 116 L MPV 7.4 Neutrophils % 82.9 H Band Neutrophils % 0 Lymphocytes % 4.2 L Monocytes % 12.0 H Eosinophils % 1.3 Basophils % 0.0 Neutrophils (Manual) 80 Lymphocytes 6 L Monocytes 12 H Eosinophils 2 Basophils 0 Platelet Estimate ADEQUATE Platelet Morphology NORMAL RBC Morph Micro Appear NORMAL Sodium 136 Potassium 3.8 Chloride 103 Carbon Dioxide 31.0 Anion Gap 5.8 L BUN 27 H Creatinine 3.5 H Est GFR ( Amer) 23.6 Est GFR (Non-Af Amer) 19.5 BUN/Creatinine Ratio 7.7 Glucose 131 H Calcium 8.5 L Troponin I 0.03 Assessment - Assessment Critical Care Time: 30 Excludes all billable procedures: Yes This condition life threatening/high prob of deterioration: Yes Assessment/Comments:: Critical Care Time: 30 minutes Treatments/Evaluations: Close monitoring and treatment of unstable vital signs, cardiorespiratory, and neurologic status, while maintaining tight balance of fluid, respiratory, and cardiac interventions. This time includes discussing the case with the patient and the patient's family. This time does not include all procedures stated elsewhere in this record. This time also includes reviewing old records, labs and radiological studies. This time includes examining and re-examining the patient. Additionally, this time also includes arranging care with admitting and consulting physicians. - Procedures Procedures:: Intubation Endotracheal Intubation by me: Pre assessment performed. See preceding note for details. Pre-oxygenation performed with 100% oxygen RSI: Performed w/o complication or hypoxic events. Medications as ordered. Blade: Glyde scope curved #4 ET Tube: 7.5cm Depth: 26 cm at the lip Compl: No hypoxic events or bradycardia Intubation confirmed by colorimetric CO2, equal breath sounds, quiet over the stomach. Chest X-ray 1V Interpreted by me: 2 cm above the stanislaw ET tube. Normal soft tissue, No pneumothorax. ED Septic Shock - . Is Septic Shock (SBP<90, OR Lactate>4 mmol\L) present?: No Reassessment (Disposition) - Reassessment Reassessment:: I responded to a rapid response in this patient for increased lethargy and altered level of consciousness and hypotension. Patient was receiving nonrebreather 100% oxygen. I ordered ABG. Results showed severe hypercapnia with CO2 levels Greater than 130. PH was 6.9. Patient at risk of acute respiratory failure and ultimately cardiac failure. Reviewed labs. BNP greater than 2000 patient is in acute CHF as well. Patient will need intubation with hyperventilation to improve the CO2 levels. Patient was transferred to the ICU. Patient was successfully intubated. Tidal volume 500, rate 24, FiO2 100%, ABG to be repeated in 30 minutes. Primary admitting physician has been informed and approves of plan. Family has been updated and approves the plan. Reassessment Condition:: Improved - Diagnosis Diagnosis:: Acute, severe hypercapnia Altered level of consciousness Hypotension - Patient Disposition Admitted to:: ICU Time:: 20:41 Condition at Disposition:: Stable ED Discharge Plan - Patient Disposition Admit/Discharge/Transfer: Acute Care w/in this hosp
[2016-11-04 20:57] LABS: pH 6.99 (7.35-7.45)
[2016-11-04 20:58] LABS: ABG SOURCE Arterial; ALLEN TEST P; BE(B) -1.4 mEq/L (-3.0-3.0); HCO3 23.6 mEq/L (20.0-26.0)
[2016-11-04 20:59] LABS: FIO2 100
[2016-11-04 21:39] LABS: pH 7.42 (7.35-7.45)
[2016-11-04 21:40] LABS: ABG SOURCE Arterial; ALLEN TEST P; BE(B) 3.5 mEq/L (-3.0-3.0); FIO2 100; HCO3 27.7 mEq/L (20.0-26.0); MECH RATE 24; MECH VT 450
[2016-11-04] MEDS ORDERED: Albumin 25% 25gm/100mL 25 GM/100 ML BTL IV ONE (22:01)
[2016-11-04 23:30] LABS: ABG SOURCE Arterial; ALLEN TEST P; BE(B) 3.3 mEq/L (-3.0-3.0); FIO2 60; HCO3 27.4 mEq/L (20.0-26.0); MECH RATE 16; MECH VT 450; pH 7.44 (7.35-7.45)
[2016-11-05] MEDS: Albuterol/Ipratropium Neb 3 ML AERS HHN SCH ×6 (03:17→23:11)
[2016-11-05 07:29] LABS: WHITE BLOOD COUNT 10.3 Th/cmm (4.8-10.8)
[2016-11-05 07:35] LABS: HEMOGLOBIN 9.7 gm/dL (13.2-17.3); MEAN CELL VOLUME 100.4 fl (80-99); MEAN CORPUSCULAR HEMOGLOBIN 32.8 pg (26.0-30.0); MEAN CORPUSCULAR HGB CONC 32.6 pg (28.0-36.0); MEAN PLATELET VOLUME 7.6 fl; PLATELET COUNT 114 Th/cmm (150-400); RED BLOOD COUNT 2.95 Mil/cmm (4.30-5.70); RED CELL DISTRIBUTION WIDTH 16.4 % (11.5-20.0)
[2016-11-05 07:36] LABS: HEMATOCRIT 29.6 % (39.0-49.0)
[2016-11-05] MEDS: Budesonide 0.5 Mg/2 mL Ud HHN SCH ×2 (07:41→19:39)
[2016-11-05 07:53] LABS: ALB/GLOB RATIO 1.2 (1.0-1.8); ANION GAP 12.3 (7.0-16.0); BUN/CREATININE RATIO 8.8; CALCIUM SERUM 7.8 mg/dL (8.6-10.3); CARBON DIOXIDE 25.1 mEq/L (21.0-31.0); POTASSIUM SERUM 4.4 mEq/L (3.5-5.1)
[2016-11-05 07:59] LABS: CREATININE - SERUM 5.8 mg/dL (0.7-1.3)
[2016-11-05] MEDS ORDERED: Albumin 25% 25gm/100mL 50 GM/200 ML BTL IV ONE (08:00)
[2016-11-05 08:15] LABS: BAND NEUTROPHILE 4 % (0-10); NEUTROPHILS 86 % (40-80); PLATELET ESTIMATE ADEQUATE (NORMAL); TOTAL CELLS COUNTED 100
[2016-11-05 08:16] LABS: ANISOCYTOSIS 1+; OVALOCYTES 1+
--- NOTE | 2016-11-05 08:46 | Diagnostic Imaging Report ---
Portable chest x-ray HISTORY: Increased shortness of breath, status post intubation Compared to prior exam of November 03, 2016, an endotracheal tube has been inserted. The tip is approximately 3.5 cm above the stanislaw. There is a decrease in a right pleural effusion with evidence of persistent bilateral infiltrates. Extensive surgical changes cardiomegaly noted. IMPRESSION: 1. Endotracheal tube tip approximately 3.5 cm above the stanislaw. 2. Decrease in a right pleural effusion with persistent bilateral infiltrates cardiomegaly, and extensive thoracic vascular surgical changes.
--- NOTE | 2016-11-05 10:10 | Diagnostic Imaging Report ---
Portable chest x-ray HISTORY: Shortness of breath Compared with prior exam November 04, 2016, there remains marked cardiomegaly. Evidence of a small right pleural effusion. Endotracheal tube tip remains approximately 3.5 cm above the stanislaw. Surgical thoracic changes noted. IMPRESSION: 1. No change in the cardiopulmonary status since November 04, 2016.
--- NOTE | 2016-11-05 13:40 | General Progress Note ---
Subjective - Review of Systems Subjective: Patient is seen and examined. Patient was intubated last evening after patient had a respiratory distress during dialysis. Patient's currently is sedated and intubated. 2-D echocardiogram consistent with LVH and moderate to severe pulmonary hypertension. Cardiac enzymes were negative. 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 Objective - Results Result Diagrams: 11/05/16 07:14 11/05/16 07:14 Recent Labs: Laboratory Last Values WBC 10.3 Th/cmm (4.8-10.8) 11/05/16 07:14 RBC 2.95 Mil/cmm (4.30-5.70) L 11/05/16 07:14 Hgb 9.7 gm/dL (13.2-17.3) L 11/05/16 07:14 Hct 29.6 % (39.0-49.0) L D 11/05/16 07:14 MCV 100.4 fl (80-99) H 11/05/16 07:14 MCH 32.8 pg (26.0-30.0) H 11/05/16 07:14 MCHC Differential 32.6 pg (28.0-36.0) 11/05/16 07:14 RDW 16.4 % (11.5-20.0) 11/05/16 07:14 Plt Count 114 Th/cmm (150-400) L 11/05/16 07:14 MPV 7.6 fl 11/05/16 07:14 Neutrophils % 82.9 % (40.0-80.0) H 11/02/16 18:18 Band Neutrophils % 4 % (0-10) 11/05/16 07:14 Lymphocytes % 4.2 % (20.0-50.0) L 11/02/16 18:18 Monocytes % 12.0 % (2.0-10.0) H 11/02/16 18:18 Eosinophils % 1.3 % (0.0-5.0) 11/02/16 18:18 Basophils % 0.0 % (0.0-2.0) 11/02/16 18:18 Neutrophils (Manual) 86 % (40-80) H 11/05/16 07:14 Lymphocytes 4 % (20-50) L 11/05/16 07:14 Monocytes 6 % (2-10) 11/05/16 07:14 Eosinophils 2 % (0-5) 11/02/16 18:18 Basophils 0 % (0-3) 11/02/16 18:18 Platelet Estimate ADEQUATE (NORMAL) 11/05/16 07:14 Platelet Morphology NORMAL (NORMAL) 11/02/16 18:18 Anisocytosis 1+ 11/05/16 07:14 Macrocytosis 1+ 11/05/16 07:14 Ovalocytes 1+ 11/05/16 07:14 RBC Morph Micro Appear NORMAL (NORMAL) 11/02/16 18:18 Specimen Source Arterial 11/04/16 22:28 Sample Site RB 11/04/16 22:28 pH 7.44 (7.35-7.45) 11/04/16 22:28 pCO2 41.0 mmHg (35.0-45.0) 11/04/16 22:28 pO2 66.0 mmHg (80.0-100.0) L 11/04/16 22:28 HCO3 27.4 mEq/L (20.0-26.0) H 11/04/16 22:28 Base Excess 3.3 mEq/L (-3.0-3.0) H 11/04/16 22:28 O2 Saturation 93.0 % (92.0-100.0) 11/04/16 22:28 Ismael Test P 11/04/16 22:28 Vent Rate 16 11/04/16 22:28 Inspired O2 60 11/04/16 22:28 Tidal Volume 450 11/04/16 22:28 PEEP 3 11/04/16 22:28 Pressure (ins/psv/peep) NA 11/04/16 22:28 Critical Value RPINEIRA 11/04/16 22:28 Sodium 135 mEq/L (136-145) L 11/05/16 07:14 Potassium 4.4 mEq/L (3.5-5.1) 11/05/16 07:14 Chloride 102 mEq/L (98-107) 11/05/16 07:14 Carbon Dioxide 25.1 mEq/L (21.0-31.0) 11/05/16 07:14 Anion Gap 12.3 (7.0-16.0) 11/05/16 07:14 BUN 51 mg/dL (7-25) H 11/05/16 07:14 Creatinine 5.8 mg/dL (0.7-1.3) H* 11/05/16 07:14 Est GFR ( Amer) 13.2 ml/min (>90) 11/05/16 07:14 Est GFR (Non-Af Amer) 10.9 ml/min 11/05/16 07:14 BUN/Creatinine Ratio 8.8 11/05/16 07:14 Glucose 91 mg/dL (70-105) 11/05/16 07:14 Calcium 7.8 mg/dL (8.6-10.3) L 11/05/16 07:14 Phosphorus 7.4 mg/dL (2.5-5.0) H 11/04/16 06:39 Magnesium 2.6 mg/dL (1.9-2.7) 11/04/16 06:39 Total Bilirubin 1.0 mg/dL (0.3-1.0) 11/05/16 07:14 AST 10 U/L (13-39) L 11/05/16 07:14 ALT 8 U/L (7-52) 11/05/16 07:14 Alkaline Phosphatase 138 U/L (34-104) H 11/05/16 07:14 Troponin I 0.01 ng/mL (0.01-0.05) 11/03/16 20:06 B-Natriuretic Peptide 2610.0 pg/mL (5.0-100.0) H 11/04/16 06:39 Total Protein 4.9 gm/dL (6.0-8.3) L 11/05/16 07:14 Albumin 2.7 gm/dL (4.2-5.5) L 11/05/16 07:14 Globulin 2.2 gm/dL 11/05/16 07:14 Albumin/Globulin Ratio 1.2 (1.0-1.8) 11/05/16 07:14 Triglycerides 80 mg/dL (<150) 11/03/16 02:29 Cholesterol 138 mg/dL (<200) 11/03/16 02:29 LDL Cholesterol Direct 60 mg/dL (75-193) L 11/03/16 02:29 HDL Cholesterol 59 mg/dL (23-92) 11/03/16 02:29 - Physical Exam Vitals and I&O: Vital Signs Temp 99.5 F 11/05/16 12:00 Pulse 92 11/05/16 13:27 Resp 18 11/05/16 12:00 BP 110/56 11/05/16 12:45 Pulse Ox 100 11/05/16 13:27 Intake & Output 11/04/16 11/05/16 11/05/16 18:59 06:59 18:59 Intake Total 400 1113.947 0 Output Total 0 0 Balance 400 1113.947 0 Weight (lbs) 54.431 kg 55.792 kg 55.792 kg Intake: Intake, IV Amount 4.947 0 Propofol 1,000 mg In 100 4.947 0 ml @ Per Protocol IV TITR [facility] Rx#:[id number] Oral 400 400 Other 709 Output: Urine 0 0 Other: # Voids 0 # Bowel Movements 0 Active Medications: Current Medications Acetaminophen (Tylenol) 650 mg PO Q6H PRN PRN Reason: Mild Pain/Headache/T above 101 Stop: 01/01/17 20:40 Albuterol/Ipratropium (Duoneb Neb) 3 ml HHN Q4HRT [facility] Stop: 01/04/17 02:59 Last Admin: 11/05/16 11:15 Dose: 3 ml Aspirin (Ecotrin) 81 mg PO DAILY [facility] Stop: 01/02/17 08:59 Last Admin: 11/04/16 09:48 Dose: 81 mg Bisacodyl (Dulcolax 10 Mg Supp) 10 mg RC DAILY PRN PRN Reason: Constipation Stop: 01/01/17 20:48 Budesonide (Pulmicort) 0.5 mg HHN BIDRT [facility] Stop: 01/02/17 11:59 Last Admin: 11/05/16 07:41 Dose: 0.5 mg Calcitriol (Rocaltrol) 0.25 mcg PO DAILY [facility] Stop: 01/02/17 08:59 Last Admin: 11/04/16 09:48 Dose: 0.25 mcg Chlorhexidine Gluconate (Peridex) 15 ml MM 0800,1999 [facility] Stop: 01/04/17 07:59 Famotidine (Pepcid) 20 mg PO BID [facility] Stop: 01/02/17 08:59 Last Admin: 11/04/16 18:25 Dose: Not Given Folic Acid (Folate) 1 mg PO DAILY [facility] Stop: 01/02/17 08:59 Last Admin: 11/04/16 09:48 Dose: 1 mg Propofol (Diprivan) 1,000 mg in 100 mls @ 0 mls/hr IV TITR [facility]; Per Protocol PRN Reason: Protocol Stop: 01/03/17 20:28 Last Titration: 11/05/16 12:10 Dose: 20 mcg/kg/min, 0 mls/hr Norepinephrine Bitartrate 4 mg (/ Dextrose) 254 mls @ 19.05 mls/hr IV PRN PRN; Protocol; 5 MCG/MIN PRN Reason: BP MAINTENANCE (PER PROTOCOL) Stop: 01/03/17 21:31 Levothyroxine Sodium (Synthroid) 0.05 mg PO DAILY [facility] Stop: 01/02/17 08:59 Last Admin: 11/04/16 09:48 Dose: 0.05 mg Lorazepam (Ativan) 0.5 mg PO Q6HR PRN; Protocol PRN Reason: Agitation Stop: 01/01/17 20:48 Last Admin: 11/03/16 16:31 Dose: 0.5 mg Metoprolol Tartrate (Lopressor) 25 mg PO BID [facility] Stop: 01/02/17 08:59 Last Admin: 11/04/16 18:24 Dose: Not Given Miscellaneous (Clinical Monitoring) 1 ea MC DAILY PRN PRN Reason: RENAL Stop: 01/02/17 12:31 Morphine Sulfate (Morphine) 2 mg IVP Q4H PRN PRN Reason: Severe Pain Stop: 01/01/17 20:40 Nitroglycerin (Nitro-Bid) 1 inch TP Q6HR [facility] Stop: 01/02/17 00:00 Last Admin: 11/04/16 18:24 Dose: Not Given Ondansetron HCl (Zofran Odt) 4 mg PO Q6HR PRN PRN Reason: Nausea / Vomiting Stop: 01/01/17 20:48 Senna (Senna) 8.6 mg PO DAILY [facility] Stop: 01/02/17 08:59 Last Admin: 11/04/16 09:48 Dose: 8.6 mg Sevelamer HCl (Renagel) 800 mg PO TIDWM [facility] Stop: 01/03/17 16:59 Last Admin: 11/04/16 18:27 Dose: Not Given Simvastatin (Zocor) 40 mg PO HS [facility] PRN Reason: Protocol Stop: 01/01/17 20:59 Last Admin: 11/04/16 22:50 Dose: Not Given Sodium Chloride (Saline Flush) 10 ml IV QSHIFT [facility] Stop: 01/02/17 07:59 Last Admin: 11/04/16 09:55 Dose: 10 ml Vitamin B Complex/Vit C/Folic Acid (Vitamin B Complex W/Vitamin C) 1 tab PO DAILY [facility] Stop: 01/02/17 08:59 Last Admin: 11/04/16 09:48 Dose: 1 tab General: Other, no Mild distress (intubated and sedated.) HEENT: Atraumatic, Mucous membr. moist/pink Neck: Supple, JVD, Other Cardiovascular: Regular rate, Normal S1, Normal S2, Systolic murmurs, Other ( positive S3.) Lungs: Other (rhonchi, no wheeze) Abdomen: Bowel sounds, Soft Extremities: no Edema Neurological: Other (intubated and sedated unable to assess further.) Skin: no Rash Assessment/Plan - Assessment Assessment: Acute respiratory failure requiring endotracheal intubation and mechanical ventilation. Moderate to severe pulmonary hypertension. Congestive heart failure most likely due to diastolic dysfunction. End-stage renal disease on hemodialysis. Hypertension. Status post aorta versus heart surgery. Generalized debility. Declining self-care and mobility Anemia of chronic kidney disease Hypothyroidism. - Plan Plan: Ventilatory support. Nebulizer treatment. IV proton pump inhibitor. Subcutaneous heparin. Adding sildenafil for pulmonary hypertension. Hemodialysis. Cardiology and nephrology follow-up. General nursing care. ICU care. Follow-up chest x-ray. Follow lab. Pulmicort. Albuterol and an Atrovent HHN. Care plan reviewed and discussed with staff.
[2016-11-05] MEDS ORDERED: Albuterol/Ipratropium Neb 3 ML AERS HHN PRN (13:42)
--- NOTE | 2016-11-05 14:27 | General Progress Note ---
Subjective - Review of Systems Service Date: 11/05/16 Subjective: sedated, comfortable, on vent Objective - Results Result Diagrams: 11/05/16 07:14 11/05/16 07:14 Recent Labs: Laboratory Last Values WBC 10.3 Th/cmm (4.8-10.8) 11/05/16 07:14 RBC 2.95 Mil/cmm (4.30-5.70) L 11/05/16 07:14 Hgb 9.7 gm/dL (13.2-17.3) L 11/05/16 07:14 Hct 29.6 % (39.0-49.0) L D 11/05/16 07:14 MCV 100.4 fl (80-99) H 11/05/16 07:14 MCH 32.8 pg (26.0-30.0) H 11/05/16 07:14 MCHC Differential 32.6 pg (28.0-36.0) 11/05/16 07:14 RDW 16.4 % (11.5-20.0) 11/05/16 07:14 Plt Count 114 Th/cmm (150-400) L 11/05/16 07:14 MPV 7.6 fl 11/05/16 07:14 Neutrophils % 82.9 % (40.0-80.0) H 11/02/16 18:18 Band Neutrophils % 4 % (0-10) 11/05/16 07:14 Lymphocytes % 4.2 % (20.0-50.0) L 11/02/16 18:18 Monocytes % 12.0 % (2.0-10.0) H 11/02/16 18:18 Eosinophils % 1.3 % (0.0-5.0) 11/02/16 18:18 Basophils % 0.0 % (0.0-2.0) 11/02/16 18:18 Neutrophils (Manual) 86 % (40-80) H 11/05/16 07:14 Lymphocytes 4 % (20-50) L 11/05/16 07:14 Monocytes 6 % (2-10) 11/05/16 07:14 Eosinophils 2 % (0-5) 11/02/16 18:18 Basophils 0 % (0-3) 11/02/16 18:18 Platelet Estimate ADEQUATE (NORMAL) 11/05/16 07:14 Platelet Morphology NORMAL (NORMAL) 11/02/16 18:18 Anisocytosis 1+ 11/05/16 07:14 Macrocytosis 1+ 11/05/16 07:14 Ovalocytes 1+ 11/05/16 07:14 RBC Morph Micro Appear NORMAL (NORMAL) 11/02/16 18:18 Specimen Source Arterial 11/04/16 22:28 Sample Site RB 11/04/16 22:28 pH 7.44 (7.35-7.45) 11/04/16 22:28 pCO2 41.0 mmHg (35.0-45.0) 11/04/16 22:28 pO2 66.0 mmHg (80.0-100.0) L 11/04/16 22:28 HCO3 27.4 mEq/L (20.0-26.0) H 11/04/16 22:28 Base Excess 3.3 mEq/L (-3.0-3.0) H 11/04/16 22:28 O2 Saturation 93.0 % (92.0-100.0) 11/04/16 22:28 Ismael Test P 11/04/16 22:28 Vent Rate 16 11/04/16 22:28 Inspired O2 60 11/04/16 22:28 Tidal Volume 450 11/04/16 22:28 PEEP 3 11/04/16 22:28 Pressure (ins/psv/peep) NA 11/04/16 22:28 Critical Value RPINEIRA 11/04/16 22:28 Sodium 135 mEq/L (136-145) L 11/05/16 07:14 Potassium 4.4 mEq/L (3.5-5.1) 11/05/16 07:14 Chloride 102 mEq/L (98-107) 11/05/16 07:14 Carbon Dioxide 25.1 mEq/L (21.0-31.0) 11/05/16 07:14 Anion Gap 12.3 (7.0-16.0) 11/05/16 07:14 BUN 51 mg/dL (7-25) H 11/05/16 07:14 Creatinine 5.8 mg/dL (0.7-1.3) H* 11/05/16 07:14 Est GFR ( Amer) 13.2 ml/min (>90) 11/05/16 07:14 Est GFR (Non-Af Amer) 10.9 ml/min 11/05/16 07:14 BUN/Creatinine Ratio 8.8 11/05/16 07:14 Glucose 91 mg/dL (70-105) 11/05/16 07:14 Calcium 7.8 mg/dL (8.6-10.3) L 11/05/16 07:14 Phosphorus 7.4 mg/dL (2.5-5.0) H 11/04/16 06:39 Magnesium 2.6 mg/dL (1.9-2.7) 11/04/16 06:39 Total Bilirubin 1.0 mg/dL (0.3-1.0) 11/05/16 07:14 AST 10 U/L (13-39) L 11/05/16 07:14 ALT 8 U/L (7-52) 11/05/16 07:14 Alkaline Phosphatase 138 U/L (34-104) H 11/05/16 07:14 Troponin I 0.01 ng/mL (0.01-0.05) 11/03/16 20:06 B-Natriuretic Peptide 2610.0 pg/mL (5.0-100.0) H 11/04/16 06:39 Total Protein 4.9 gm/dL (6.0-8.3) L 11/05/16 07:14 Albumin 2.7 gm/dL (4.2-5.5) L 11/05/16 07:14 Globulin 2.2 gm/dL 11/05/16 07:14 Albumin/Globulin Ratio 1.2 (1.0-1.8) 11/05/16 07:14 Triglycerides 80 mg/dL (<150) 11/03/16 02:29 Cholesterol 138 mg/dL (<200) 11/03/16 02:29 LDL Cholesterol Direct 60 mg/dL (75-193) L 11/03/16 02:29 HDL Cholesterol 59 mg/dL (23-92) 11/03/16 02:29 - Physical Exam Vitals and I&O: Vital Signs Temp 99.5 F 11/05/16 12:00 Pulse 92 11/05/16 13:27 Resp 18 11/05/16 12:00 BP 110/56 11/05/16 12:45 Pulse Ox 100 11/05/16 13:27 Intake & Output 11/04/16 11/05/16 11/05/16 18:59 06:59 18:59 Intake Total 400 1113.947 0 Output Total 0 0 Balance 400 1113.947 0 Weight (lbs) 54.431 kg 55.792 kg 55.792 kg Intake: Intake, IV Amount 4.947 0 Propofol 1,000 mg In 100 4.947 0 ml @ Per Protocol IV TITR [facility] Rx#:[id number] Oral 400 400 Other 709 Output: Urine 0 0 Other: # Voids 0 # Bowel Movements 0 Active Medications: Current Medications Acetaminophen (Tylenol) 650 mg PO Q6H PRN PRN Reason: Mild Pain/Headache/T above 101 Stop: 01/01/17 20:40 Albuterol/Ipratropium (Duoneb Neb) 3 ml HHN Q4HRT [facility] Stop: 01/04/17 02:59 Last Admin: 11/05/16 11:15 Dose: 3 ml Albuterol/Ipratropium (Duoneb Neb) 3 ml HHN Q2HRT PRN PRN Reason: Wheezing Stop: 01/04/17 13:41 Aspirin (Ecotrin) 81 mg PO DAILY [facility] Stop: 01/02/17 08:59 Last Admin: 11/04/16 09:48 Dose: 81 mg Bisacodyl (Dulcolax 10 Mg Supp) 10 mg RC DAILY PRN PRN Reason: Constipation Stop: 01/01/17 20:48 Budesonide (Pulmicort) 0.5 mg HHN BIDRT [facility] Stop: 01/02/17 11:59 Last Admin: 11/05/16 07:41 Dose: 0.5 mg Calcitriol (Rocaltrol) 0.25 mcg PO DAILY [facility] Stop: 01/02/17 08:59 Last Admin: 11/04/16 09:48 Dose: 0.25 mcg Chlorhexidine Gluconate (Peridex) 15 ml MM 0800,1999 [facility] Stop: 01/04/17 07:59 Famotidine (Pepcid) 20 mg PO BID [facility] Stop: 01/02/17 08:59 Last Admin: 11/04/16 18:25 Dose: Not Given Folic Acid (Folate) 1 mg PO DAILY [facility] Stop: 01/02/17 08:59 Last Admin: 07/15/17 09:48 Dose: 1 mg Heparin Sodium (Porcine) (Heparin) 5,000 units SUBQ Q12HR [facility] Stop: 01/04/17 20:59 Propofol (Diprivan) 1,000 mg in 100 mls @ 0 mls/hr IV TITR [facility]; Per Protocol PRN Reason: Protocol Stop: 01/03/17 20:28 Last Titration: 11/05/16 12:10 Dose: 20 mcg/kg/min, 0 mls/hr Norepinephrine Bitartrate 4 mg (/ Dextrose) 254 mls @ 19.05 mls/hr IV PRN PRN; Protocol; 5 MCG/MIN PRN Reason: BP MAINTENANCE (PER PROTOCOL) Stop: 01/03/17 21:31 Levothyroxine Sodium (Synthroid) 0.05 mg PO DAILY [facility] Stop: 01/02/17 08:59 Last Admin: 11/04/16 09:48 Dose: 0.05 mg Lorazepam (Ativan) 0.5 mg PO Q6HR PRN; Protocol PRN Reason: Agitation Stop: 01/01/17 20:48 Last Admin: 11/03/16 16:31 Dose: 0.5 mg Metoprolol Tartrate (Lopressor) 25 mg PO BID [facility] Stop: 01/02/17 08:59 Last Admin: 11/04/16 18:24 Dose: Not Given Miscellaneous (Clinical Monitoring) 1 ea MC DAILY PRN PRN Reason: RENAL Stop: 01/02/17 12:31 Morphine Sulfate (Morphine) 2 mg IVP Q4H PRN PRN Reason: Severe Pain Stop: 01/01/17 20:40 Ondansetron HCl (Zofran Odt) 4 mg PO Q6HR PRN PRN Reason: Nausea / Vomiting Stop: 01/01/17 20:48 Pantoprazole Sodium (Protonix) 40 mg IVP DAILY [facility] Stop: 01/05/17 08:59 Senna (Senna) 8.6 mg PO DAILY [facility] Stop: 01/02/17 08:59 Last Admin: 11/04/16 09:48 Dose: 8.6 mg Sevelamer HCl (Renagel) 800 mg PO TIDWM [facility] Stop: 01/03/17 16:59 Last Admin: 11/04/16 18:27 Dose: Not Given Sildenafil Citrate (Revatio) 20 mg PO TID [facility] Stop: 01/04/17 13:59 Simvastatin (Zocor) 40 mg PO HS [facility] PRN Reason: Protocol Stop: 01/01/17 20:59 Last Admin: 11/04/16 22:50 Dose: Not Given Sodium Chloride (Saline Flush) 10 ml IV QSHIFT [facility] Stop: 01/02/17 07:59 Last Admin: 11/04/16 09:55 Dose: 10 ml Vitamin B Complex/Vit C/Folic Acid (Vitamin B Complex W/Vitamin C) 1 tab PO DAILY [facility] Stop: 01/02/17 08:59 Last Admin: 11/04/16 09:48 Dose: 1 tab General: Mild distress (scattered rhonchi, no wheeze), Other HEENT: Atraumatic, Mucous membr. moist/pink Neck: Supple, JVD, Other Cardiovascular: Regular rate, Normal S1, Normal S2, Systolic murmurs, Other ( positive S3.) Lungs: Other (rhonchi, no wheeze) Abdomen: Bowel sounds, Soft Extremities: no Edema Neurological: Sensation intact, Other (intubated and sedated unable to assess further.) Skin: no Rash Psych/Mental Status: Mood NL Assessment/Plan - Assessment Assessment: ESRD on hemodialysis Essential hypertension Anemia of chronic kidney disease GERD Acute coronary syndrome secondary to unstable angina Respiratory distress secondary to fluid overload, possible acute on chronic CHF Hypothyroidism Anxiety disorder Status post respiratory arrest on ventilator Severe pulmonary hypertension - Plan Plan: Lab - Result Diagrams 11/04/16 06:39 11/04/16 06:39 Current Medications Acetaminophen (Tylenol) 650 mg PO Q6H PRN PRN Reason: Mild Pain/Headache/T above 101 Stop: 01/01/17 20:40 Albuterol/Ipratropium (Duoneb Neb) 3 ml HHN Q6HRT [facility] Stop: 01/02/17 00:59 Last Admin: 11/04/16 07:43 Dose: 3 ml Aspirin (Ecotrin) 81 mg PO DAILY [facility] Stop: 01/02/17 08:59 Last Admin: 11/04/16 09:48 Dose: 81 mg Bisacodyl (Dulcolax 10 Mg Supp) 10 mg RC DAILY PRN PRN Reason: Constipation Stop: 01/01/17 20:48 Budesonide (Pulmicort) 0.5 mg HHN BIDRT [facility] Stop: 01/02/17 11:59 Last Admin: 11/04/16 07:43 Dose: 0.5 mg Calcitriol (Rocaltrol) 0.25 mcg PO DAILY [facility] Stop: 01/02/17 08:59 Last Admin: 11/04/16 09:48 Dose: 0.25 mcg Calcium Acetate (Phoslo) 667 mg PO DAILY [facility] Stop: 01/02/17 08:59 Last Admin: 11/04/16 09:48 Dose: 667 mg Famotidine (Pepcid) 20 mg PO BID [facility] Stop: 01/02/17 08:59 Last Admin: 11/04/16 09:48 Dose: 20 mg Folic Acid (Folate) 1 mg PO DAILY [facility] Stop: 01/02/17 08:59 Last Admin: 11/04/16 09:48 Dose: 1 mg Levothyroxine Sodium (Synthroid) 0.05 mg PO DAILY [facility] Stop: 01/02/17 08:59 Last Admin: 11/04/16 09:48 Dose: 0.05 mg Lorazepam (Ativan) 0.5 mg PO Q6HR PRN; Protocol PRN Reason: Agitation Stop: 01/01/17 20:48 Last Admin: 11/03/16 16:31 Dose: 0.5 mg Metoprolol Tartrate (Lopressor) 25 mg PO BID [facility] Stop: 01/02/17 08:59 Last Admin: 11/04/16 09:49 Dose: Not Given Miscellaneous (Clinical Monitoring) 1 ea MC DAILY PRN PRN Reason: RENAL Stop: 01/02/17 12:31 Morphine Sulfate (Morphine) 2 mg IVP Q4H PRN PRN Reason: Severe Pain Stop: 01/01/17 20:40 Nitroglycerin (Nitro-Bid) 1 inch TP Q6HR [facility] Stop: 01/02/17 00:00 Last Admin: 11/04/16 06:48 Dose: Not Given Ondansetron HCl (Zofran Odt) 4 mg PO Q6HR PRN PRN Reason: Nausea / Vomiting Stop: 01/01/17 20:48 Senna (Senna) 8.6 mg PO DAILY [facility] Stop: 01/02/17 08:59 Last Admin: 11/04/16 09:48 Dose: 8.6 mg Simvastatin (Zocor) 40 mg PO HS [facility] PRN Reason: Protocol Stop: 01/01/17 20:59 Last Admin: 11/03/16 22:35 Dose: Not Given Sodium Chloride (Saline Flush) 10 ml IV QSHIFT [facility] Stop: 01/02/17 07:59 Last Admin: 11/04/16 09:55 Dose: 10 ml Vitamin B Complex/Vit C/Folic Acid (Vitamin B Complex W/Vitamin C) 1 tab PO DAILY [facility] Stop: 01/02/17 08:59 Last Admin: 11/04/16 09:48 Dose: 1 tab Developed hypotension during dialysis last night, received almost 1 L of fluid for blood pressure support, however still developed respiratory arrest and now on ventilator Fluid restriction Daily weights Serial chest x-ray Scheduled for dialysis today, prime w/albumin Echo revealed ejection fraction 55% but RVSP of 62.3 mmHg
[2016-11-05] MEDS: Chlorhexidine Gluconate 0.12% 15mL Mouthwash MM SCH (20:21)
[2016-11-06] MEDS: Albuterol/Ipratropium Neb 3 ML AERS HHN SCH ×6 (03:29→23:49)
[2016-11-06 05:14] LABS: % BASOPHILS 0.4 % (0.0-2.0); % EOSINOPHILS 1.6 % (0.0-5.0); % LYMPHOCYTES 7.8 % (20.0-50.0); % MONOCYTES 8.8 % (2.0-10.0); % NEUTROPHILS 81.4 % (40.0-80.0); HEMATOCRIT 27.8 % (39.0-49.0); HEMOGLOBIN 8.9 gm/dL (13.2-17.3); MEAN CELL VOLUME 99.2 fl (80-99); MEAN CORPUSCULAR HEMOGLOBIN 31.8 pg (26.0-30.0); MEAN CORPUSCULAR HGB CONC 32.1 pg (28.0-36.0); MEAN PLATELET VOLUME 7.7 fl; NEUTROPHILE ABSOLUTE 4.7 Th/cmm (1.8-8.0); PLATELET COUNT 122 Th/cmm (150-400); RED CELL DISTRIBUTION WIDTH 16.7 % (11.5-20.0)
[2016-11-06 05:47] LABS: WHITE BLOOD COUNT 5.7 Th/cmm (4.8-10.8)
[2016-11-06 05:57] LABS: ALB/GLOB RATIO 1.6 (1.0-1.8); ANION GAP 11.4 (7.0-16.0); BILIRUBIN,DIRECT 0.49 mg/dL (0.0-0.2); BILIRUBIN,TOTAL 1.5 mg/dL (0.3-1.0); BUN/CREATININE RATIO 8.4; CALCIUM SERUM 8.4 mg/dL (8.6-10.3); POTASSIUM SERUM 3.4 mEq/L (3.5-5.1)
[2016-11-06 06:06] LABS: CREATININE - SERUM 4.4 mg/dL (0.7-1.3)
[2016-11-06 06:17] LABS: TSH 2.42 uIU/ml (0.34-5.60)
[2016-11-06] MEDS: Budesonide 0.5 Mg/2 mL Ud HHN SCH ×2 (07:35→19:07)
[2016-11-06 09:16] LABS: ABG SOURCE Arterial; ALLEN TEST YES; BE(B) 2.8 mEq/L (-3.0-3.0); HCO3 27.1 mEq/L (20.0-26.0)
[2016-11-06 09:17] LABS: FIO2 60; MECH RATE 12; MECH VT 450
[2016-11-06] MEDS: Vitamin B Complex w/Vitamin C Tab PO SCH (09:17)
[2016-11-06 09:18] LABS: CRITICAL VALUES REPORTED BY SH
[2016-11-06] MEDS: Levothyroxine 0.05 Mg Tab PO SCH (09:18)
[2016-11-06] MEDS: Chlorhexidine Gluconate 0.12% 15mL Mouthwash MM SCH ×2 (09:27→20:32)
--- NOTE | 2016-11-06 09:37 | General Progress Note ---
Subjective - Review of Systems Subjective: Patient is seen and examined. Patient is currently on ventilatory. Still on propofol drip but patient is alert awake and following commands. Discussed with nursing staff about overnight event. Objective - Results Result Diagrams: 11/06/16 04:45 11/06/16 04:45 Recent Labs: Laboratory Last Values WBC 5.7 Th/cmm (4.8-10.8) D 11/06/16 04:45 RBC 2.80 Mil/cmm (4.30-5.70) L 11/06/16 04:45 Hgb 8.9 gm/dL (13.2-17.3) L 11/06/16 04:45 Hct 27.8 % (39.0-49.0) L 11/06/16 04:45 MCV 99.2 fl (80-99) H 11/06/16 04:45 MCH 31.8 pg (26.0-30.0) H 11/06/16 04:45 MCHC Differential 32.1 pg (28.0-36.0) 11/06/16 04:45 RDW 16.7 % (11.5-20.0) 11/06/16 04:45 Plt Count 122 Th/cmm (150-400) L 11/06/16 04:45 MPV 7.7 fl 11/06/16 04:45 Neutrophils % 81.4 % (40.0-80.0) H 11/06/16 04:45 Band Neutrophils % 4 % (0-10) 11/05/16 07:14 Lymphocytes % 7.8 % (20.0-50.0) L 11/06/16 04:45 Monocytes % 8.8 % (2.0-10.0) 11/06/16 04:45 Eosinophils % 1.6 % (0.0-5.0) 11/06/16 04:45 Basophils % 0.4 % (0.0-2.0) 11/06/16 04:45 Neutrophils (Manual) 86 % (40-80) H 11/05/16 07:14 Lymphocytes 4 % (20-50) L 11/05/16 07:14 Monocytes 6 % (2-10) 11/05/16 07:14 Eosinophils 2 % (0-5) 11/02/16 18:18 Basophils 0 % (0-3) 11/02/16 18:18 Platelet Estimate ADEQUATE (NORMAL) 11/05/16 07:14 Platelet Morphology NORMAL (NORMAL) 11/02/16 18:18 Anisocytosis 1+ 11/05/16 07:14 Macrocytosis 1+ 11/05/16 07:14 Ovalocytes 1+ 11/05/16 07:14 RBC Morph Micro Appear NORMAL (NORMAL) 11/02/16 18:18 Specimen Source Arterial 11/06/16 09:00 Sample Site Right Radial 11/06/16 09:00 pH 7.50 (7.35-7.45) H 11/06/16 09:00 pCO2 33.0 mmHg (35.0-45.0) L 11/06/16 09:00 pO2 90.0 mmHg (80.0-100.0) 11/06/16 09:00 HCO3 27.1 mEq/L (20.0-26.0) H 11/06/16 09:00 Base Excess 2.8 mEq/L (-3.0-3.0) 11/06/16 09:00 O2 Saturation 98.0 % (92.0-100.0) 11/06/16 09:00 Ismael Test YES 11/06/16 09:00 Vent Rate 12 11/06/16 09:00 Inspired O2 60 11/06/16 09:00 Tidal Volume 450 11/06/16 09:00 PEEP +3 11/06/16 09:00 Pressure (ins/psv/peep) NA 11/06/16 09:00 Critical Value SH 11/06/16 09:00 Sodium 137 mEq/L (136-145) 11/06/16 04:45 Potassium 3.4 mEq/L (3.5-5.1) L 11/06/16 04:45 Chloride 104 mEq/L (98-107) 11/06/16 04:45 Carbon Dioxide 25.0 mEq/L (21.0-31.0) 11/06/16 04:45 Anion Gap 11.4 (7.0-16.0) 11/06/16 04:45 BUN 37 mg/dL (7-25) H 11/06/16 04:45 Creatinine 4.4 mg/dL (0.7-1.3) H* 11/06/16 04:45 Est GFR ( Amer) 18.1 ml/min (>90) 11/06/16 04:45 Est GFR (Non-Af Amer) 15.0 ml/min 11/06/16 04:45 BUN/Creatinine Ratio 8.4 11/06/16 04:45 Glucose 79 mg/dL (70-105) 11/06/16 04:45 Calcium 8.4 mg/dL (8.6-10.3) L 11/06/16 04:45 Phosphorus 7.4 mg/dL (2.5-5.0) H 11/04/16 06:39 Magnesium 2.6 mg/dL (1.9-2.7) 11/04/16 06:39 Total Bilirubin 1.5 mg/dL (0.3-1.0) H 11/06/16 04:45 Direct Bilirubin 0.49 mg/dL (0.0-0.2) H 11/06/16 04:45 AST 12 U/L (13-39) L 11/06/16 04:45 ALT 6 U/L (7-52) L 11/06/16 04:45 Alkaline Phosphatase 117 U/L (34-104) H 11/06/16 04:45 Ammonia 47 umol/L (16-53) 11/06/16 04:45 Troponin I 0.01 ng/mL (0.01-0.05) 11/03/16 20:06 B-Natriuretic Peptide 2610.0 pg/mL (5.0-100.0) H 11/04/16 06:39 Total Protein 5.1 gm/dL (6.0-8.3) L 11/06/16 04:45 Albumin 3.1 gm/dL (4.2-5.5) L 11/06/16 04:45 Globulin 2.0 gm/dL 11/06/16 04:45 Albumin/Globulin Ratio 1.6 (1.0-1.8) 11/06/16 04:45 Triglycerides 80 mg/dL (<150) 11/03/16 02:29 Cholesterol 138 mg/dL (<200) 11/03/16 02:29 LDL Cholesterol Direct 60 mg/dL (75-193) L 11/03/16 02:29 HDL Cholesterol 59 mg/dL (23-92) 11/03/16 02:29 TSH 2.42 uIU/ml (0.34-5.60) 11/06/16 04:45 - Physical Exam Vitals and I&O: Vital Signs Temp 98.3 F 11/06/16 06:00 Pulse 76 11/06/16 09:19 Resp 22 11/06/16 06:00 BP 121/28 11/06/16 09:19 Pulse Ox 100 11/06/16 07:35 Intake & Output 11/05/16 11/06/16 11/06/16 18:59 06:59 18:59 Intake Total 0 166.742 Output Total 3500 Balance 0 -3333.258 Weight (lbs) 55.792 kg 50.916 kg Intake: Intake, IV Amount 0 116.742 Propofol 1,000 mg In 100 0 116.742 ml @ Per Protocol IV TITR [facility] Rx#:[id number] Oral 0 Other 50 Output: Urine 0 Hemodialysis 3500 Other: # Bowel Movements 0 Active Medications: Current Medications Acetaminophen (Tylenol) 650 mg PO Q6H PRN PRN Reason: Mild Pain/Headache/T above 101 Stop: 01/01/17 20:40 Albuterol/Ipratropium (Duoneb Neb) 3 ml HHN Q4HRT [facility] Stop: 01/04/17 02:59 Last Admin: 11/06/16 07:35 Dose: 3 ml Albuterol/Ipratropium (Duoneb Neb) 3 ml HHN Q2HRT PRN PRN Reason: Wheezing Stop: 01/04/17 13:41 Aspirin (Ecotrin) 81 mg PO DAILY [facility] Stop: 01/02/17 08:59 Last Admin: 11/06/16 09:18 Dose: 81 mg Bisacodyl (Dulcolax 10 Mg Supp) 10 mg RC DAILY PRN PRN Reason: Constipation Stop: 01/01/17 20:48 Budesonide (Pulmicort) 0.5 mg HHN BIDRT [facility] Stop: 01/02/17 11:59 Last Admin: 11/06/16 07:35 Dose: 0.5 mg Calcitriol (Rocaltrol) 0.25 mcg PO DAILY [facility] Stop: 01/02/17 08:59 Last Admin: 11/04/16 09:48 Dose: 0.25 mcg Chlorhexidine Gluconate (Peridex) 15 ml MM 0800,1999 [facility] Stop: 01/04/17 07:59 Last Admin: 11/06/16 09:27 Dose: 15 ml Famotidine (Pepcid) 20 mg PO BID [facility] Stop: 01/02/17 08:59 Last Admin: 11/06/16 09:18 Dose: 20 mg Folic Acid (Folate) 1 mg PO DAILY [facility] Stop: 01/02/17 08:59 Last Admin: 11/06/16 09:18 Dose: 1 mg Heparin Sodium (Porcine) (Heparin) 5,000 units SUBQ Q12HR [facility] Stop: 01/04/17 20:59 Last Admin: 11/06/16 09:24 Dose: 5,000 units Propofol (Diprivan) 1,000 mg in 100 mls @ 0 mls/hr IV TITR [facility]; Per Protocol PRN Reason: Protocol Stop: 01/03/17 20:28 Last Titration: 11/06/16 06:36 Dose: Infused Norepinephrine Bitartrate 4 mg (/ Dextrose) 254 mls @ 19.05 mls/hr IV PRN PRN; Protocol; 5 MCG/MIN PRN Reason: BP MAINTENANCE (PER PROTOCOL) Stop: 01/03/17 21:31 Levothyroxine Sodium (Synthroid) 0.05 mg PO DAILY [facility] Stop: 01/02/17 08:59 Last Admin: 11/06/16 09:18 Dose: 0.05 mg Lorazepam (Ativan) 0.5 mg PO Q6HR PRN; Protocol PRN Reason: Agitation Stop: 01/01/17 20:48 Last Admin: 11/03/16 16:31 Dose: 0.5 mg Metoprolol Tartrate (Lopressor) 25 mg PO BID [facility] Stop: 01/02/17 08:59 Last Admin: 11/06/16 09:19 Dose: 25 mg Miscellaneous (Clinical Monitoring) 1 ea MC DAILY PRN PRN Reason: RENAL Stop: 01/02/17 12:31 Morphine Sulfate (Morphine) 2 mg IVP Q4H PRN PRN Reason: Severe Pain Stop: 01/01/17 20:40 Ondansetron HCl (Zofran Odt) 4 mg PO Q6HR PRN PRN Reason: Nausea / Vomiting Stop: 01/01/17 20:48 Pantoprazole Sodium (Protonix) 40 mg IVP DAILY [facility] Stop: 01/05/17 08:59 Last Admin: 11/06/16 09:17 Dose: 40 mg Senna (Senna) 8.6 mg PO DAILY [facility] Stop: 01/02/17 08:59 Last Admin: 11/06/16 09:18 Dose: 8.6 mg Sevelamer HCl (Renagel) 800 mg PO TIDWM [facility] Stop: 01/03/17 16:59 Last Admin: 11/06/16 09:26 Dose: Not Given Sildenafil Citrate (Revatio) 20 mg PO TID [facility] Stop: 01/04/17 13:59 Last Admin: 11/06/16 09:18 Dose: 20 mg Simvastatin (Zocor) 40 mg PO HS [facility] PRN Reason: Protocol Stop: 01/01/17 20:59 Last Admin: 11/05/16 20:33 Dose: 40 mg Sodium Chloride (Saline Flush) 10 ml IV QSHIFT [facility] Stop: 01/02/17 07:59 Last Admin: 11/06/16 09:31 Dose: 10 ml Vitamin B Complex/Vit C/Folic Acid (Vitamin B Complex W/Vitamin C) 1 tab PO DAILY [facility] Stop: 01/02/17 08:59 Last Admin: 11/06/16 09:17 Dose: 1 tab General: Mild distress (scattered rhonchi, no wheeze), Other HEENT: Atraumatic, Mucous membr. moist/pink Neck: Supple, JVD, Other Cardiovascular: Regular rate, Normal S1, Normal S2, Systolic murmurs Lungs: Other (rhonchi, no wheeze) Abdomen: Bowel sounds, Soft Extremities: no Edema Neurological: Sensation intact, Other (intubated and sedated unable to assess further.) Skin: no Rash Psych/Mental Status: Mood NL - Procedures Procedures: Procedures Procedure Code Date INSERT EMERGENCY AIRWAY 23877 11/02/16 INSERTION OF ENDOTRACHEAL AIRWAY INTO [facility], VIA OPENING [id number] 11/02/16 RESPIRATORY VENTILATION, 24-96 CONSECUTIVE HOURS [id number] 11/02/16 VENT MGMT INPAT INIT DAY 11/02/16 VENT MGMT INPAT SUBQ DAY 11/02/16 Assessment/Plan - Assessment Assessment: Acute respiratory failure requiring endotracheal intubation and mechanical ventilation. Moderate to severe pulmonary hypertension. Congestive heart failure most likely due to diastolic dysfunction. End-stage renal disease on hemodialysis. Hypertension. Status post aorta versus heart surgery. Generalized debility. Declining self-care and mobility Anemia of chronic kidney disease Hypothyroidism. - Plan Plan: Ventilatory support and wean off as tolerated.. Nebulizer treatment. Pulmonary follow-up. IV proton pump inhibitor. Subcutaneous heparin. Adding sildenafil for pulmonary hypertension. Hemodialysis. Cardiology and nephrology follow-up. General nursing care. ICU care. (Old records from her previous hospital about his cardiac surgery. Follow-up chest x-ray. Follow lab. Pulmicort. Albuterol and an Atrovent HHN. Care plan reviewed and discussed with staff.
--- NOTE | 2016-11-06 09:40 | Diagnostic Imaging Report ---
Portable chest x-ray HISTORY: Pneumonia Compared with prior exam of November 05, 2016, the heart remains enlarged. Extensive thoracic vascular changes noted. An endotracheal tube tip is approximate 4.0 cm above the stanislaw. Evidence of persistent small right pleural effusion. Pulmonary vascular redistribution is consistent with a degree of congestive heart failure. IMPRESSION: 1. No significant change in the cardiopulmonary status is November 05, 2016 as noted above.
--- NOTE | 2016-11-06 09:48 | Diagnostic Imaging Report ---
KUB abdominal film HISTORY: Pain, nasogastric tube placement The exam demonstrates a nasogastric tube over the left upper quadrant and over the stomach area. Increased density noted in the right abdomen. Findings may be associated with hepatomegaly. Nonspecific gas pattern with nondilated bowel predilate situated in the lower abdomen/pelvis. IMPRESSION: 1. Nasogastric tube projecting over the stomach 2. Question hepatomegaly. An ultrasound exam or CT scan would provide additional assessment.
[2016-11-06] MEDS: Aspirin 81mg Chewable Tab PO SCH (10:13)
--- NOTE | 2016-11-06 13:48 | General Progress Note ---
Subjective - Review of Systems Service Date: 11/06/16 Subjective: sedated, comfortable, but arousable, on vent Objective - Results Result Diagrams: 11/06/16 04:45 11/06/16 04:45 Recent Labs: Laboratory Last Values WBC 5.7 Th/cmm (4.8-10.8) D 11/06/16 04:45 RBC 2.80 Mil/cmm (4.30-5.70) L 11/06/16 04:45 Hgb 8.9 gm/dL (13.2-17.3) L 11/06/16 04:45 Hct 27.8 % (39.0-49.0) L 11/06/16 04:45 MCV 99.2 fl (80-99) H 11/06/16 04:45 MCH 31.8 pg (26.0-30.0) H 11/06/16 04:45 MCHC Differential 32.1 pg (28.0-36.0) 11/06/16 04:45 RDW 16.7 % (11.5-20.0) 11/06/16 04:45 Plt Count 122 Th/cmm (150-400) L 11/06/16 04:45 MPV 7.7 fl 11/06/16 04:45 Neutrophils % 81.4 % (40.0-80.0) H 11/06/16 04:45 Band Neutrophils % 4 % (0-10) 11/05/16 07:14 Lymphocytes % 7.8 % (20.0-50.0) L 11/06/16 04:45 Monocytes % 8.8 % (2.0-10.0) 11/06/16 04:45 Eosinophils % 1.6 % (0.0-5.0) 11/06/16 04:45 Basophils % 0.4 % (0.0-2.0) 11/06/16 04:45 Neutrophils (Manual) 86 % (40-80) H 11/05/16 07:14 Lymphocytes 4 % (20-50) L 11/05/16 07:14 Monocytes 6 % (2-10) 11/05/16 07:14 Eosinophils 2 % (0-5) 11/02/16 18:18 Basophils 0 % (0-3) 11/02/16 18:18 Platelet Estimate ADEQUATE (NORMAL) 11/05/16 07:14 Platelet Morphology NORMAL (NORMAL) 11/02/16 18:18 Anisocytosis 1+ 11/05/16 07:14 Macrocytosis 1+ 11/05/16 07:14 Ovalocytes 1+ 11/05/16 07:14 RBC Morph Micro Appear NORMAL (NORMAL) 11/02/16 18:18 Specimen Source Arterial 11/06/16 09:00 Sample Site Right Radial 11/06/16 09:00 pH 7.50 (7.35-7.45) H 11/06/16 09:00 pCO2 33.0 mmHg (35.0-45.0) L 11/06/16 09:00 pO2 90.0 mmHg (80.0-100.0) 11/06/16 09:00 HCO3 27.1 mEq/L (20.0-26.0) H 11/06/16 09:00 Base Excess 2.8 mEq/L (-3.0-3.0) 11/06/16 09:00 O2 Saturation 98.0 % (92.0-100.0) 11/06/16 09:00 Ismael Test YES 11/06/16 09:00 Vent Rate 12 11/06/16 09:00 Inspired O2 60 11/06/16 09:00 Tidal Volume 450 11/06/16 09:00 PEEP +3 11/06/16 09:00 Pressure (ins/psv/peep) NA 11/06/16 09:00 Critical Value SH 11/06/16 09:00 Sodium 137 mEq/L (136-145) 11/06/16 04:45 Potassium 3.4 mEq/L (3.5-5.1) L 11/06/16 04:45 Chloride 104 mEq/L (98-107) 11/06/16 04:45 Carbon Dioxide 25.0 mEq/L (21.0-31.0) 11/06/16 04:45 Anion Gap 11.4 (7.0-16.0) 11/06/16 04:45 BUN 37 mg/dL (7-25) H 11/06/16 04:45 Creatinine 4.4 mg/dL (0.7-1.3) H* 11/06/16 04:45 Est GFR ( Amer) 18.1 ml/min (>90) 11/06/16 04:45 Est GFR (Non-Af Amer) 15.0 ml/min 11/06/16 04:45 BUN/Creatinine Ratio 8.4 11/06/16 04:45 Glucose 79 mg/dL (70-105) 11/06/16 04:45 Calcium 8.4 mg/dL (8.6-10.3) L 11/06/16 04:45 Phosphorus 7.4 mg/dL (2.5-5.0) H 11/04/16 06:39 Magnesium 2.6 mg/dL (1.9-2.7) 11/04/16 06:39 Total Bilirubin 1.5 mg/dL (0.3-1.0) H 11/06/16 04:45 Direct Bilirubin 0.49 mg/dL (0.0-0.2) H 11/06/16 04:45 AST 12 U/L (13-39) L 11/06/16 04:45 ALT 6 U/L (7-52) L 11/06/16 04:45 Alkaline Phosphatase 117 U/L (34-104) H 11/06/16 04:45 Ammonia 47 umol/L (16-53) 11/06/16 04:45 Troponin I 0.01 ng/mL (0.01-0.05) 11/03/16 20:06 B-Natriuretic Peptide 2610.0 pg/mL (5.0-100.0) H 11/04/16 06:39 Total Protein 5.1 gm/dL (6.0-8.3) L 11/06/16 04:45 Albumin 3.1 gm/dL (4.2-5.5) L 11/06/16 04:45 Globulin 2.0 gm/dL 11/06/16 04:45 Albumin/Globulin Ratio 1.6 (1.0-1.8) 11/06/16 04:45 Triglycerides 80 mg/dL (<150) 11/03/16 02:29 Cholesterol 138 mg/dL (<200) 11/03/16 02:29 LDL Cholesterol Direct 60 mg/dL (75-193) L 11/03/16 02:29 HDL Cholesterol 59 mg/dL (23-92) 11/03/16 02:29 TSH 2.42 uIU/ml (0.34-5.60) 11/06/16 04:45 - Physical Exam Vitals and I&O: Vital Signs Temp 100.3 F 11/06/16 12:00 Pulse 74 11/06/16 13:07 Resp 25 11/06/16 12:00 BP 105/62 11/06/16 12:45 Pulse Ox 100 11/06/16 13:07 Intake & Output 11/05/16 11/06/16 11/06/16 18:59 06:59 18:59 Intake Total 0 166.742 Output Total 3500 Balance 0 -3333.258 Weight (lbs) 55.792 kg 50.916 kg Intake: Intake, IV Amount 0 116.742 Propofol 1,000 mg In 100 0 116.742 ml @ Per Protocol IV TITR [facility] Rx#:[id number] Oral 0 Other 50 Output: Urine 0 Hemodialysis 3500 Other: # Bowel Movements 0 Active Medications: Current Medications Acetaminophen (Tylenol) 650 mg PO Q6H PRN PRN Reason: Mild Pain/Headache/T above 101 Stop: 01/01/17 20:40 Albuterol/Ipratropium (Duoneb Neb) 3 ml HHN Q4HRT [facility] Stop: 01/04/17 02:59 Last Admin: 11/06/16 11:11 Dose: 3 ml Albuterol/Ipratropium (Duoneb Neb) 3 ml HHN Q2HRT PRN PRN Reason: Wheezing Stop: 01/04/17 13:41 Aspirin (Aspirin Chewable) 81 mg PO DAILY [facility] Stop: 01/05/17 08:59 Last Admin: 11/06/16 10:13 Dose: 81 mg Bisacodyl (Dulcolax 10 Mg Supp) 10 mg RC DAILY PRN PRN Reason: Constipation Stop: 01/01/17 20:48 Budesonide (Pulmicort) 0.5 mg HHN BIDRT [facility] Stop: 01/02/17 11:59 Last Admin: 11/06/16 07:35 Dose: 0.5 mg Calcitriol (Rocaltrol) 0.25 mcg PO DAILY [facility] Stop: 01/02/17 08:59 Last Admin: 11/06/16 10:15 Dose: Not Given Chlorhexidine Gluconate (Peridex) 15 ml MM 0800,2000 [facility] Stop: 01/04/17 07:59 Last Admin: 11/06/16 09:27 Dose: 15 ml Famotidine (Pepcid) 20 mg PO BID [facility] Stop: 01/02/17 08:59 Last Admin: 11/06/16 09:18 Dose: 20 mg Folic Acid (Folate) 1 mg PO DAILY [facility] Stop: 01/02/17 08:59 Last Admin: 11/06/16 09:18 Dose: 1 mg Heparin Sodium (Porcine) (Heparin) 5,000 units SUBQ Q12HR [facility] Stop: 01/04/17 20:59 Last Admin: 11/06/16 09:24 Dose: 5,000 units Propofol (Diprivan) 1,000 mg in 100 mls @ 0 mls/hr IV TITR [facility]; Per Protocol PRN Reason: Protocol Stop: 01/03/17 20:28 Last Titration: 11/06/16 06:36 Dose: Infused Norepinephrine Bitartrate 4 mg (/ Dextrose) 254 mls @ 19.05 mls/hr IV PRN PRN; Protocol; 5 MCG/MIN PRN Reason: BP MAINTENANCE (PER PROTOCOL) Stop: 01/03/17 21:31 Levothyroxine Sodium (Synthroid) 0.05 mg PO DAILY [facility] Stop: 01/02/17 08:59 Last Admin: 11/06/16 09:18 Dose: 0.05 mg Lorazepam (Ativan) 0.5 mg PO Q6HR PRN; Protocol PRN Reason: Agitation Stop: 01/01/17 20:48 Last Admin: 11/03/16 16:31 Dose: 0.5 mg Metoprolol Tartrate (Lopressor) 25 mg PO BID [facility] Stop: 01/02/17 08:59 Last Admin: 11/06/16 09:19 Dose: 25 mg Miscellaneous (Clinical Monitoring) 1 ea MC DAILY PRN PRN Reason: RENAL Stop: 01/02/17 12:31 Morphine Sulfate (Morphine) 2 mg IVP Q4H PRN PRN Reason: Severe Pain Stop: 01/01/17 20:40 Ondansetron HCl (Zofran Odt) 4 mg PO Q6HR PRN PRN Reason: Nausea / Vomiting Stop: 01/01/17 20:48 Pantoprazole Sodium (Protonix) 40 mg IVP DAILY [facility] Stop: 01/05/17 08:59 Last Admin: 11/06/16 09:17 Dose: 40 mg Senna (Senna) 8.6 mg PO DAILY [facility] Stop: 01/02/17 08:59 Last Admin: 11/06/16 09:18 Dose: 8.6 mg Sevelamer HCl (Renagel) 800 mg PO TIDWM [facility] Stop: 01/03/17 16:59 Last Admin: 11/06/16 12:46 Dose: Not Given Sildenafil Citrate (Revatio) 20 mg PO TID [facility] Stop: 01/04/17 13:59 Last Admin: 11/06/16 09:18 Dose: 20 mg Simvastatin (Zocor) 40 mg PO HS [facility] PRN Reason: Protocol Stop: 01/01/17 20:59 Last Admin: 11/05/16 20:33 Dose: 40 mg Sodium Chloride (Saline Flush) 10 ml IV QSHIFT [facility] Stop: 01/02/17 07:59 Last Admin: 11/06/16 09:31 Dose: 10 ml Vitamin B Complex/Vit C/Folic Acid (Vitamin B Complex W/Vitamin C) 1 tab PO DAILY [facility] Stop: 01/02/17 08:59 Last Admin: 11/06/16 09:17 Dose: 1 tab General: Mild distress (scattered rhonchi, no wheeze), Other HEENT: Atraumatic, Mucous membr. moist/pink Neck: Supple, JVD, Other Cardiovascular: Regular rate, Normal S1, Normal S2, Systolic murmurs Lungs: Other (rhonchi, no wheeze) Abdomen: Bowel sounds, Soft Extremities: no Edema Neurological: Sensation intact, Other (intubated and sedated unable to assess further.) Skin: no Rash Psych/Mental Status: Mood NL - Procedures Procedures: Procedures Procedure Code Date INSERT EMERGENCY AIRWAY 99266 11/02/16 INSERTION OF ENDOTRACHEAL AIRWAY INTO TRACHEA, VIA OPENING [id number] 11/02/16 RESPIRATORY VENTILATION, 24-96 CONSECUTIVE HOURS [id number] 11/02/16 VENT MGMT INPAT INIT DAY 35444 11/02/16 VENT MGMT INPAT SUBQ DAY 87376 11/02/16 Assessment/Plan - Assessment Assessment: ESRD on hemodialysis Essential hypertension Anemia of chronic kidney disease GERD Acute coronary syndrome secondary to unstable angina Respiratory distress secondary to fluid overload, possible acute on chronic CHF Hypothyroidism Anxiety disorder Status post respiratory arrest on ventilator Severe pulmonary hypertension - Plan Plan: Lab - Result Diagrams 11/04/16 06:39 11/04/16 06:39 Current Medications Acetaminophen (Tylenol) 650 mg PO Q6H PRN PRN Reason: Mild Pain/Headache/T above 101 Stop: 01/01/17 20:40 Albuterol/Ipratropium (Duoneb Neb) 3 ml HHN Q6HRT [facility] Stop: 01/02/17 00:59 Last Admin: 11/04/16 07:43 Dose: 3 ml Aspirin (Ecotrin) 81 mg PO DAILY [facility] Stop: 01/02/17 08:59 Last Admin: 11/04/16 09:48 Dose: 81 mg Bisacodyl (Dulcolax 10 Mg Supp) 10 mg RC DAILY PRN PRN Reason: Constipation Stop: 01/01/17 20:48 Budesonide (Pulmicort) 0.5 mg HHN BIDRT [facility] Stop: 01/02/17 11:59 Last Admin: 11/04/16 07:43 Dose: 0.5 mg Calcitriol (Rocaltrol) 0.25 mcg PO DAILY [facility] Stop: 01/02/17 08:59 Last Admin: 11/04/16 09:48 Dose: 0.25 mcg Calcium Acetate (Phoslo) 667 mg PO DAILY [facility] Stop: 01/02/17 08:59 Last Admin: 11/04/16 09:48 Dose: 667 mg Famotidine (Pepcid) 20 mg PO BID [facility] Stop: 01/02/17 08:59 Last Admin: 11/04/16 09:48 Dose: 20 mg Folic Acid (Folate) 1 mg PO DAILY [facility] Stop: 01/02/17 08:59 Last Admin: 11/04/16 09:48 Dose: 1 mg Levothyroxine Sodium (Synthroid) 0.05 mg PO DAILY [facility] Stop: 01/02/17 08:59 Last Admin: 11/04/16 09:48 Dose: 0.05 mg Lorazepam (Ativan) 0.5 mg PO Q6HR PRN; Protocol PRN Reason: Agitation Stop: 01/01/17 20:48 Last Admin: 11/03/16 16:31 Dose: 0.5 mg Metoprolol Tartrate (Lopressor) 25 mg PO BID [facility] Stop: 01/02/17 08:59 Last Admin: 11/04/16 09:49 Dose: Not Given Miscellaneous (Clinical Monitoring) 1 ea MC DAILY PRN PRN Reason: RENAL Stop: 01/02/17 12:31 Morphine Sulfate (Morphine) 2 mg IVP Q4H PRN PRN Reason: Severe Pain Stop: 01/01/17 20:40 Nitroglycerin (Nitro-Bid) 1 inch TP Q6HR [facility] Stop: 01/02/17 00:00 Last Admin: 11/04/16 06:48 Dose: Not Given Ondansetron HCl (Zofran Odt) 4 mg PO Q6HR PRN PRN Reason: Nausea / Vomiting Stop: 01/01/17 20:48 Senna (Senna) 8.6 mg PO DAILY [facility] Stop: 01/02/17 08:59 Last Admin: 11/04/16 09:48 Dose: 8.6 mg Simvastatin (Zocor) 40 mg PO HS [facility] PRN Reason: Protocol Stop: 01/01/17 20:59 Last Admin: 11/03/16 22:35 Dose: Not Given Sodium Chloride (Saline Flush) 10 ml IV QSHIFT [facility] Stop: 01/02/17 07:59 Last Admin: 11/04/16 09:55 Dose: 10 ml Vitamin B Complex/Vit C/Folic Acid (Vitamin B Complex W/Vitamin C) 1 tab PO DAILY [facility] Stop: 01/02/17 08:59 Last Admin: 11/04/16 09:48 Dose: 1 tab Developed hypotension during dialysis last night, received almost 1 L of fluid for blood pressure support, however still developed respiratory arrest and now on ventilator Fluid restriction Daily weights Serial chest x-ray Scheduled for dialysis tomorrow, prime w/albumin Echo revealed ejection fraction 55% but RVSP of 62.3 mmHg
[2016-11-06] MEDS ORDERED: Potassium Chloride 20 mEq ER Tab PO ONE (13:49)
[2016-11-06] MEDS ORDERED: Potassium Chloride Elixir 20 mEq /15 mL UDC NG ONE (17:34)
[2016-11-06] MEDS: Morphine Sulfate 2 mg/mL 1mL Syr IVP PRN (21:50)
[2016-11-07] MEDS: Morphine Sulfate 2 mg/mL 1mL Syr IVP PRN (03:56)
[2016-11-07] MEDS: Albuterol/Ipratropium Neb 3 ML AERS HHN SCH ×6 (04:50→23:18)
[2016-11-07 05:14] LABS: HEMATOCRIT 27.5 % (39.0-49.0); HEMOGLOBIN 8.8 gm/dL (13.2-17.3); MEAN CELL VOLUME 100.1 fl (80-99); MEAN CORPUSCULAR HEMOGLOBIN 32.1 pg (26.0-30.0); MEAN CORPUSCULAR HGB CONC 32.1 pg (28.0-36.0); MEAN PLATELET VOLUME 7.4 fl; PLATELET COUNT 110 Th/cmm (150-400); RED BLOOD COUNT 2.74 Mil/cmm (4.30-5.70); RED CELL DISTRIBUTION WIDTH 16.4 % (11.5-20.0); WHITE BLOOD COUNT 6.8 Th/cmm (4.8-10.8)
[2016-11-07 05:36] LABS: ALB/GLOB RATIO 1.2 (1.0-1.8); ANION GAP 12.6 (7.0-16.0); BILIRUBIN,TOTAL 1.2 mg/dL (0.3-1.0); BUN/CREATININE RATIO 9.5; CALCIUM SERUM 8.1 mg/dL (8.6-10.3); CARBON DIOXIDE 24.8 mEq/L (21.0-31.0); POTASSIUM SERUM 4.4 mEq/L (3.5-5.1)
[2016-11-07 06:01] LABS: CREATININE - SERUM 6.2 mg/dL (0.7-1.3)
[2016-11-07 06:52] LABS: BAND NEUTROPHILE 1 % (0-10); EOSINOPHIL 1 % (0-5); NEUTROPHILS 84 % (40-80); TOTAL CELLS COUNTED 100
[2016-11-07 06:53] LABS: ANISOCYTOSIS 1+; PLATELET ESTIMATE ADEQUATE (NORMAL)
[2016-11-07] MEDS: Budesonide 0.5 Mg/2 mL Ud HHN SCH ×2 (07:20→19:15)
[2016-11-07] MEDS: Chlorhexidine Gluconate 0.12% 15mL Mouthwash MM SCH ×3 (08:00→22:13)
[2016-11-07] MEDS: Levothyroxine 0.05 Mg Tab PO SCH (09:00)
[2016-11-07] MEDS: Vitamin B Complex w/Vitamin C Tab PO SCH ×2 (09:00→13:18)
[2016-11-07] MEDS: Aspirin 81mg Chewable Tab PO SCH (09:00)
--- NOTE | 2016-11-07 09:15 | General Progress Note ---
Subjective - Review of Systems Subjective: Patient is seen and examined. Patient is alert awake answering questions appropriately. Currently on SIMV mode. Tolerating the weaning. Objective - Results Result Diagrams: 11/07/16 04:45 11/07/16 04:45 Recent Labs: Laboratory Last Values WBC 6.8 Th/cmm (4.8-10.8) 11/07/16 04:45 RBC 2.74 Mil/cmm (4.30-5.70) L 11/07/16 04:45 Hgb 8.8 gm/dL (13.2-17.3) L 11/07/16 04:45 Hct 27.5 % (39.0-49.0) L 11/07/16 04:45 MCV 100.1 fl (80-99) H 11/07/16 04:45 MCH 32.1 pg (26.0-30.0) H 11/07/16 04:45 MCHC Differential 32.1 pg (28.0-36.0) 11/07/16 04:45 RDW 16.4 % (11.5-20.0) 11/07/16 04:45 Plt Count 110 Th/cmm (150-400) L 11/07/16 04:45 MPV 7.4 fl 11/07/16 04:45 Neutrophils % 81.4 % (40.0-80.0) H 11/06/16 04:45 Band Neutrophils % 1 % (0-10) 11/07/16 04:45 Lymphocytes % 7.8 % (20.0-50.0) L 11/06/16 04:45 Monocytes % 8.8 % (2.0-10.0) 11/06/16 04:45 Eosinophils % 1.6 % (0.0-5.0) 11/06/16 04:45 Basophils % 0.4 % (0.0-2.0) 11/06/16 04:45 Neutrophils (Manual) 84 % (40-80) H 11/07/16 04:45 Lymphocytes 4 % (20-50) L 11/07/16 04:45 Monocytes 10 % (2-10) 11/07/16 04:45 Eosinophils 1 % (0-5) 11/07/16 04:45 Basophils 0 % (0-3) 07/13/17 18:18 Platelet Estimate ADEQUATE (NORMAL) 11/07/16 04:45 Platelet Morphology NORMAL (NORMAL) 11/02/16 18:18 Anisocytosis 1+ 11/07/16 04:45 Macrocytosis 1+ 11/05/16 07:14 Ovalocytes 1+ 11/05/16 07:14 RBC Morph Micro Appear ABNORMAL (NORMAL) 11/07/16 04:45 Specimen Source Arterial 11/06/16 09:00 Sample Site Right Radial 11/06/16 09:00 pH 7.50 (7.35-7.45) H 11/06/16 09:00 pCO2 33.0 mmHg (35.0-45.0) L 11/06/16 09:00 pO2 90.0 mmHg (80.0-100.0) 11/06/16 09:00 HCO3 27.1 mEq/L (20.0-26.0) H 11/06/16 09:00 Base Excess 2.8 mEq/L (-3.0-3.0) 11/06/16 09:00 O2 Saturation 98.0 % (92.0-100.0) 11/06/16 09:00 Ismael Test YES 11/06/16 09:00 Vent Rate 12 11/06/16 09:00 Inspired O2 60 11/06/16 09:00 Tidal Volume 450 11/06/16 09:00 PEEP +3 11/06/16 09:00 Pressure (ins/psv/peep) NA 11/06/16 09:00 Critical Value SH 11/06/16 09:00 Sodium 134 mEq/L (136-145) L 11/07/16 04:45 Potassium 4.4 mEq/L (3.5-5.1) 11/07/16 04:45 Chloride 101 mEq/L (98-107) 11/07/16 04:45 Carbon Dioxide 24.8 mEq/L (21.0-31.0) 11/07/16 04:45 Anion Gap 12.6 (7.0-16.0) 11/07/16 04:45 BUN 59 mg/dL (7-25) H 11/07/16 04:45 Creatinine 6.2 mg/dL (0.7-1.3) H* 11/07/16 04:45 Est GFR ( Amer) 12.2 ml/min (>90) 11/07/16 04:45 Est GFR (Non-Af Amer) 10.1 ml/min 11/07/16 04:45 BUN/Creatinine Ratio 9.5 11/07/16 04:45 Glucose 85 mg/dL (70-105) 11/07/16 04:45 Calcium 8.1 mg/dL (8.6-10.3) L 11/07/16 04:45 Phosphorus 7.4 mg/dL (2.5-5.0) H 11/04/16 06:39 Magnesium 2.6 mg/dL (1.9-2.7) 11/04/16 06:39 Total Bilirubin 1.2 mg/dL (0.3-1.0) H 11/07/16 04:45 Direct Bilirubin 0.49 mg/dL (0.0-0.2) H 11/06/16 04:45 AST 17 U/L (13-39) 11/07/16 04:45 ALT 8 U/L (7-52) 11/07/16 04:45 Alkaline Phosphatase 123 U/L (34-104) H 11/07/16 04:45 Ammonia 47 umol/L (16-53) 11/06/16 04:45 Troponin I 0.01 ng/mL (0.01-0.05) 11/03/16 20:06 B-Natriuretic Peptide 1020.0 pg/mL (5.0-100.0) H 11/07/16 04:45 Total Protein 5.5 gm/dL (6.0-8.3) L 11/07/16 04:45 Albumin 3.0 gm/dL (4.2-5.5) L 11/07/16 04:45 Globulin 2.5 gm/dL 11/07/16 04:45 Albumin/Globulin Ratio 1.2 (1.0-1.8) 11/07/16 04:45 Triglycerides 80 mg/dL (<150) 11/03/16 02:29 Cholesterol 138 mg/dL (<200) 11/03/16 02:29 LDL Cholesterol Direct 60 mg/dL (75-193) L 11/03/16 02:29 HDL Cholesterol 59 mg/dL (23-92) 11/03/16 02:29 TSH 2.42 uIU/ml (0.34-5.60) 11/06/16 04:45 - Physical Exam Vitals and I&O: Vital Signs Temp 99.2 F 11/07/16 04:00 Pulse 89 11/07/16 07:32 Resp 18 11/07/16 06:00 BP 123/56 11/07/16 06:00 Pulse Ox 100 11/07/16 07:32 Intake & Output 11/06/16 11/07/16 11/07/16 18:59 06:59 18:59 Intake Total 270 600 Output Total 0 0 Balance 270 600 Weight (lbs) 51.846 kg 50.434 kg Intake: Tube Feeding 150 450 Other 120 150 Output: Urine 0 0 Other: # Bowel Movements 0 0 Active Medications: Current Medications Acetaminophen (Tylenol) 650 mg PO Q6H PRN PRN Reason: Mild Pain/Headache/T above 101 Stop: 01/01/17 20:40 Albuterol/Ipratropium (Duoneb Neb) 3 ml HHN Q4HRT [facility] Stop: 01/04/17 02:59 Last Admin: 11/07/16 07:20 Dose: 3 ml Albuterol/Ipratropium (Duoneb Neb) 3 ml HHN Q2HRT PRN PRN Reason: Wheezing Stop: 01/04/17 13:41 Aspirin (Aspirin Chewable) 81 mg PO DAILY [facility] Stop: 01/05/17 08:59 Last Admin: 11/06/16 10:13 Dose: 81 mg Bisacodyl (Dulcolax 10 Mg Supp) 10 mg RC DAILY PRN PRN Reason: Constipation Stop: 01/01/17 20:48 Budesonide (Pulmicort) 0.5 mg HHN BIDRT [facility] Stop: 01/02/17 11:59 Last Admin: 11/07/16 07:20 Dose: 0.5 mg Calcitriol (Rocaltrol) 0.25 mcg PO DAILY [facility] Stop: 01/02/17 08:59 Last Admin: 11/06/16 10:15 Dose: Not Given Chlorhexidine Gluconate (Peridex) 15 ml MM 0800,1999 [facility] Stop: 01/04/17 07:59 Last Admin: 11/06/16 20:32 Dose: 15 ml Famotidine (Pepcid) 20 mg PO BID [facility] Stop: 01/02/17 08:59 Last Admin: 11/06/16 18:34 Dose: 20 mg Folic Acid (Folate) 1 mg PO DAILY [facility] Stop: 01/02/17 08:59 Last Admin: 11/06/16 09:18 Dose: 1 mg Heparin Sodium (Porcine) (Heparin) 5,000 units SUBQ Q12HR [facility] Stop: 01/04/17 20:59 Last Admin: 11/06/16 20:32 Dose: 5,000 units Norepinephrine Bitartrate 4 mg (/ Dextrose) 254 mls @ 19.05 mls/hr IV PRN PRN; Protocol; 5 MCG/MIN PRN Reason: BP MAINTENANCE (PER PROTOCOL) Stop: 01/03/17 21:31 Levothyroxine Sodium (Synthroid) 0.05 mg PO DAILY [facility] Stop: 01/02/17 08:59 Last Admin: 11/06/16 09:18 Dose: 0.05 mg Lorazepam (Ativan) 0.5 mg PO Q6HR PRN; Protocol PRN Reason: Agitation Stop: 01/01/17 20:48 Last Admin: 11/06/16 20:32 Dose: 0.5 mg Metoprolol Tartrate (Lopressor) 25 mg PO BID [facility] Stop: 01/02/17 08:59 Last Admin: 11/06/16 18:34 Dose: Not Given Miscellaneous (Clinical Monitoring) 1 ea MC DAILY PRN PRN Reason: RENAL Stop: 01/02/17 12:31 Morphine Sulfate (Morphine) 2 mg IVP Q4H PRN PRN Reason: Severe Pain Stop: 01/01/17 20:40 Last Admin: 11/07/16 03:56 Dose: 2 mg Ondansetron HCl (Zofran Odt) 4 mg PO Q6HR PRN PRN Reason: Nausea / Vomiting Stop: 01/01/17 20:48 Pantoprazole Sodium (Protonix) 40 mg IVP DAILY [facility] Stop: 01/05/17 08:59 Last Admin: 11/06/16 09:17 Dose: 40 mg Senna (Senna) 8.6 mg PO DAILY [facility] Stop: 01/02/17 08:59 Last Admin: 11/06/16 09:18 Dose: 8.6 mg Sevelamer HCl (Renagel) 800 mg PO TIDWM [facility] Stop: 01/03/17 16:59 Last Admin: 11/06/16 16:10 Dose: Not Given Sildenafil Citrate (Revatio) 20 mg PO TID [facility] Stop: 01/04/17 13:59 Last Admin: 11/06/16 20:32 Dose: 20 mg Simvastatin (Zocor) 40 mg PO HS [facility] PRN Reason: Protocol Stop: 01/01/17 20:59 Last Admin: 11/06/16 20:32 Dose: 40 mg Sodium Chloride (Saline Flush) 10 ml IV QSHIFT [facility] Stop: 01/02/17 07:59 Last Admin: 11/06/16 20:37 Dose: 10 ml Vitamin B Complex/Vit C/Folic Acid (Vitamin B Complex W/Vitamin C) 1 tab PO DAILY [facility] Stop: 01/02/17 08:59 Last Admin: 11/06/16 09: Dose: 1 tab General: Mild distress (scattered rhonchi, no wheeze), Other HEENT: Atraumatic, Mucous membr. moist/pink Neck: Supple, JVD, Other Cardiovascular: Regular rate, Normal S1, Normal S2, Systolic murmurs Lungs: Other (rhonchi, no wheeze) Abdomen: Bowel sounds, Soft Extremities: no Edema Neurological: Sensation intact, Other (intubated and sedated unable to assess further.) Skin: no Rash Psych/Mental Status: Mood NL - Procedures Procedures: Procedures Procedure Code Date INSERT EMERGENCY AIRWAY 17919 11/02/16 INSERTION OF ENDOTRACHEAL AIRWAY INTO TRACHEA, VIA OPENING [id number] 11/02/16 RESPIRATORY VENTILATION, 24-96 CONSECUTIVE HOURS [id number] 11/02/16 VENT MGMT INPAT INIT DAY 96570 11/02/16 VENT MGMT INPAT SUBQ DAY 04866 11/02/16 Assessment/Plan - Assessment Assessment: Acute respiratory failure requiring endotracheal intubation and mechanical ventilation. Moderate to severe pulmonary hypertension. Congestive heart failure most likely due to diastolic dysfunction. End-stage renal disease on hemodialysis. Hypertension. Status post aorta versus heart surgery. Generalized debility. Declining self-care and mobility Anemia of chronic kidney disease Hypothyroidism. - Plan Plan: Ventilatory support and wean off as tolerated.. Nebulizer treatment. Pulmonary follow-up. IV proton pump inhibitor. Subcutaneous heparin. Adding sildenafil for pulmonary hypertension. Hemodialysis. Cardiology and nephrology follow-up. General nursing care. ICU care. Get records from her previous hospital about his cardiac surgery. Follow-up chest x-ray. Follow lab. Pulmicort. Albuterol and an Atrovent HHN. Care plan reviewed and discussed with staff.
[2016-11-07 10:19] LABS: BE(B) 0.8 mEq/L (-3.0-3.0); HCO3 25.6 mEq/L (20.0-26.0); pH 7.35 (7.35-7.45)
[2016-11-07 10:20] LABS: ABG SOURCE Arterial; ALLEN TEST PASS; FIO2 45; MECH RATE 8; MECH VT 450; PS 15
[2016-11-07 10:21] LABS: CRITICAL VALUES REPORTED BY PW
--- NOTE | 2016-11-07 10:35 | Diagnostic Imaging Report ---
Portable chest x-ray HISTORY: Shortness of breath Compared with prior exam of November 06, 2016, the heart remains enlarged. There appears to be a degree of pulmonary vascular consistent with a degree of cardiac decompensation. Persistent faint infiltrate is noted in the right lower lobe. Evidence of small bilateral pleural effusions. An endotracheal tube tip remains approximately 3.0 cm above the stanislaw. Extensive thoracic vascular surgical changes noted. IMPRESSION: 1. Little change in the cardiopulmonary status as detailed above.
[2016-11-07] MEDS ORDERED: Albumin 25% 25gm/100mL 25 GM/100 ML BTL IV ONE ×2 (17:21→17:22)
--- NOTE | 2016-11-07 17:21 | General Progress Note ---
Subjective - Review of Systems Service Date: 11/07/16 Subjective: more awake, on facemask aerosol Objective - Results Result Diagrams: 11/07/16 04:45 11/07/16 04:45 Recent Labs: Laboratory Last Values WBC 6.8 Th/cmm (4.8-10.8) 11/07/16 04:45 RBC 2.74 Mil/cmm (4.30-5.70) L 11/07/16 04:45 Hgb 8.8 gm/dL (13.2-17.3) L 11/07/16 04:45 Hct 27.5 % (39.0-49.0) L 11/07/16 04:45 MCV 100.1 fl (80-99) H 11/07/16 04:45 MCH 32.1 pg (26.0-30.0) H 11/07/16 04:45 MCHC Differential 32.1 pg (28.0-36.0) 11/07/16 04:45 RDW 16.4 % (11.5-20.0) 11/07/16 04:45 Plt Count 110 Th/cmm (150-400) L 11/07/16 04:45 MPV 7.4 fl 11/07/16 04:45 Neutrophils % 81.4 % (40.0-80.0) H 11/06/16 04:45 Band Neutrophils % 1 % (0-10) 11/07/16 04:45 Lymphocytes % 7.8 % (20.0-50.0) L 11/06/16 04:45 Monocytes % 8.8 % (2.0-10.0) 11/06/16 04:45 Eosinophils % 1.6 % (0.0-5.0) 11/06/16 04:45 Basophils % 0.4 % (0.0-2.0) 11/06/16 04:45 Neutrophils (Manual) 84 % (40-80) H 11/07/16 04:45 Lymphocytes 4 % (20-50) L 11/07/16 04:45 Monocytes 10 % (2-10) 11/07/16 04:45 Eosinophils 1 % (0-5) 11/07/16 04:45 Basophils 0 % (0-3) 11/02/16 18:18 Platelet Estimate ADEQUATE (NORMAL) 11/07/16 04:45 Platelet Morphology NORMAL (NORMAL) 11/02/16 18:18 Anisocytosis 1+ 11/07/16 04:45 Macrocytosis 1+ 11/05/16 07:14 Ovalocytes 1+ 11/05/16 07:14 RBC Morph Micro Appear ABNORMAL (NORMAL) 11/07/16 04:45 Specimen Source Arterial 11/07/16 10:02 Sample Site Right Radial 11/07/16 10:02 pH 7.35 (7.35-7.45) 11/07/16 10:02 pCO2 49.0 mmHg (35.0-45.0) H 11/07/16 10:02 pO2 124.0 mmHg (80.0-100.0) H 11/07/16 10:02 HCO3 25.6 mEq/L (20.0-26.0) 11/07/16 10:02 Base Excess 0.8 mEq/L (-3.0-3.0) 11/07/16 10:02 O2 Saturation 99.0 % (92.0-100.0) 11/07/16 10:02 Ismael Test PASS 11/07/16 10:02 Vent Rate 8 11/07/16 10:02 Inspired O2 45 11/07/16 10:02 Tidal Volume 450 11/07/16 10:02 PEEP 3 11/07/16 10:02 Pressure (ins/psv/peep) 15 11/07/16 10:02 Critical Value PW 11/07/16 10:02 Sodium 134 mEq/L (136-145) L 11/07/16 04:45 Potassium 4.4 mEq/L (3.5-5.1) 11/07/16 04:45 Chloride 101 mEq/L (98-107) 11/07/16 04:45 Carbon Dioxide 24.8 mEq/L (21.0-31.0) 11/07/16 04:45 Anion Gap 12.6 (7.0-16.0) 11/07/16 04:45 BUN 59 mg/dL (7-25) H 11/07/16 04:45 Creatinine 6.2 mg/dL (0.7-1.3) H* 11/07/16 04:45 Est GFR ( Amer) 12.2 ml/min (>90) 11/07/16 04:45 Est GFR (Non-Af Amer) 10.1 ml/min 11/07/16 04:45 BUN/Creatinine Ratio 9.5 11/07/16 04:45 Glucose 85 mg/dL (70-105) 11/07/16 04:45 Calcium 8.1 mg/dL (8.6-10.3) L 11/07/16 04:45 Phosphorus 7.4 mg/dL (2.5-5.0) H 11/04/16 06:39 Magnesium 2.6 mg/dL (1.9-2.7) 11/04/16 06:39 Total Bilirubin 1.2 mg/dL (0.3-1.0) H 11/07/16 04:45 Direct Bilirubin 0.49 mg/dL (0.0-0.2) H 11/06/16 04:45 AST 17 U/L (13-39) 11/07/16 04:45 ALT 8 U/L (7-52) 11/07/16 04:45 Alkaline Phosphatase 123 U/L (34-104) H 11/07/16 04:45 Ammonia 47 umol/L (16-53) 11/06/16 04:45 Troponin I 0.01 ng/mL (0.01-0.05) 11/03/16 20:06 B-Natriuretic Peptide 1020.0 pg/mL (5.0-100.0) H 11/07/16 04:45 Total Protein 5.5 gm/dL (6.0-8.3) L 11/07/16 04:45 Albumin 3.0 gm/dL (4.2-5.5) L 11/07/16 04:45 Globulin 2.5 gm/dL 11/07/16 04:45 Albumin/Globulin Ratio 1.2 (1.0-1.8) 11/07/16 04:45 Triglycerides 80 mg/dL (<150) 11/03/16 02:29 Cholesterol 138 mg/dL (<200) 11/03/16 02:29 LDL Cholesterol Direct 60 mg/dL (75-193) L 11/03/16 02:29 HDL Cholesterol 59 mg/dL (23-92) 11/03/16 02:29 TSH 2.42 uIU/ml (0.34-5.60) 11/06/16 04:45 - Physical Exam Vitals and I&O: Vital Signs Temp 99.2 F 11/07/16 04:00 Pulse 80 11/07/16 14:18 Resp 21 11/07/16 14:18 BP 124/71 11/07/16 09:00 Pulse Ox 100 11/07/16 14:18 Intake & Output 11/06/16 11/07/16 11/07/16 18:59 06:59 18:59 Intake Total 270 600 Output Total 0 0 Balance 270 600 Weight (lbs) 51.846 kg 50.434 kg Intake: Tube Feeding 150 450 Other 120 150 Output: Urine 0 0 Other: # Bowel Movements 0 0 Active Medications: Current Medications Acetaminophen (Tylenol) 650 mg PO Q6H PRN PRN Reason: Mild Pain/Headache/T above 101 Stop: 01/01/17 20:40 Albuterol/Ipratropium (Duoneb Neb) 3 ml HHN Q4HRT [facility] Stop: 01/04/17 02:59 Last Admin: 11/07/16 14:18 Dose: 3 ml Albuterol/Ipratropium (Duoneb Neb) 3 ml HHN Q2HRT PRN PRN Reason: Wheezing Stop: 01/04/17 13:41 Aspirin (Aspirin Chewable) 81 mg PO DAILY [facility] Stop: 01/05/17 08:59 Last Admin: 11/07/16 13:21 Dose: 81 mg Bisacodyl (Dulcolax 10 Mg Supp) 10 mg RC DAILY PRN PRN Reason: Constipation Stop: 01/01/17 20:48 Last Admin: 11/07/16 13:19 Dose: 10 mg Budesonide (Pulmicort) 0.5 mg HHN BIDRT [facility] Stop: 01/02/17 11:59 Last Admin: 11/07/16 07:20 Dose: 0.5 mg Calcitriol (Rocaltrol) 0.25 mcg PO DAILY [facility] Stop: 01/02/17 08:59 Last Admin: 11/06/16 10:15 Dose: Not Given Chlorhexidine Gluconate (Peridex) 15 ml MM 0800,1999 [facility] Stop: 01/04/17 07:59 Last Admin: 11/07/16 13:07 Dose: 15 ml Famotidine (Pepcid) 20 mg PO BID [facility] Stop: 01/02/17 08:59 Last Admin: 11/07/16 13:26 Dose: 20 mg Folic Acid (Folate) 1 mg PO DAILY [facility] Stop: 01/02/17 08:59 Last Admin: 11/07/16 13:20 Dose: 1 mg Heparin Sodium (Porcine) (Heparin) 5,000 units SUBQ Q12HR [facility] Stop: 01/04/17 20:59 Last Admin: 11/07/16 09:00 Dose: 5,000 units Norepinephrine Bitartrate 4 mg (/ Dextrose) 254 mls @ 19.05 mls/hr IV PRN PRN; Protocol; 5 MCG/MIN PRN Reason: BP MAINTENANCE (PER PROTOCOL) Stop: 01/03/17 21:31 Levothyroxine Sodium (Synthroid) 0.05 mg PO DAILY [facility] Stop: 01/02/17 08:59 Last Admin: 11/07/16 09:00 Dose: 0.05 mg Lorazepam (Ativan) 0.5 mg PO Q6HR PRN; Protocol PRN Reason: Agitation Stop: 01/01/17 20:48 Last Admin: 11/06/16 20:32 Dose: 0.5 mg Metoprolol Tartrate (Lopressor) 25 mg PO BID [facility] Stop: 01/02/17 08:59 Last Admin: 11/07/16 09:00 Dose: 25 mg Miscellaneous (Clinical Monitoring) 1 ea MC DAILY PRN PRN Reason: RENAL Stop: 01/02/17 12:31 Morphine Sulfate (Morphine) 2 mg IVP Q4H PRN PRN Reason: Severe Pain Stop: 01/01/17 20:40 Last Admin: 11/07/16 03:56 Dose: 2 mg Ondansetron HCl (Zofran Odt) 4 mg PO Q6HR PRN PRN Reason: Nausea / Vomiting Stop: 01/01/17 20:48 Pantoprazole Sodium (Protonix) 40 mg IVP DAILY [facility] Stop: 01/05/17 08:59 Last Admin: 11/07/16 13:07 Dose: 40 mg Senna (Senna) 8.6 mg PO DAILY [facility] Stop: 01/02/17 08:59 Last Admin: 11/07/16 13:21 Dose: 8.6 mg Sevelamer HCl (Renagel) 800 mg PO TIDWM [facility] Stop: 01/03/17 16:59 Last Admin: 11/07/16 13:27 Dose: 800 mg Sildenafil Citrate (Revatio) 20 mg PO TID [facility] Stop: 01/04/17 13:59 Last Admin: 11/07/16 13:16 Dose: 20 mg Simvastatin (Zocor) 40 mg PO HS [facility] PRN Reason: Protocol Stop: 01/01/17 20:59 Last Admin: 11/06/16 20:32 Dose: 40 mg Sodium Chloride (Saline Flush) 10 ml IV QSHIFT [facility] Stop: 01/02/17 07:59 Last Admin: 11/07/16 08:00 Dose: 10 ml Vitamin B Complex/Vit C/Folic Acid (Vitamin B Complex W/Vitamin C) 1 tab PO DAILY [facility] Stop: 01/02/17 08:59 Last Admin: 11/07/16 13:18 Dose: 1 tab General: Alert, Mild distress (scattered rhonchi, no wheeze), Other HEENT: Atraumatic, Mucous membr. moist/pink Neck: Supple, JVD, Other Cardiovascular: Regular rate, Normal S1, Normal S2, Systolic murmurs Lungs: Other (rhonchi, no wheeze) Abdomen: Bowel sounds, Soft Extremities: no Edema Neurological: Sensation intact, Other (intubated and sedated unable to assess further.) Skin: no Rash Psych/Mental Status: Mood NL - Procedures Procedures: Procedures Procedure Code Date INSERT EMERGENCY AIRWAY 12380 11/02/16 INSERTION OF ENDOTRACHEAL AIRWAY INTO [place], VIA OPENING [id number] 11/02/16 RESPIRATORY VENTILATION, 24-96 CONSECUTIVE HOURS [id number] 11/02/16 VENT MGMT INPAT INIT DAY 11/02/16 VENT MGMT INPAT SUBQ DAY 45369 11/02/16 Assessment/Plan - Assessment Assessment: ESRD on hemodialysis Essential hypertension Anemia of chronic kidney disease GERD Acute coronary syndrome secondary to unstable angina Respiratory distress secondary to fluid overload, possible acute on chronic CHF Hypothyroidism Anxiety disorder Status post respiratory arrest off ventilator Severe pulmonary hypertension - Plan Plan: Lab - Result Diagrams 11/04/16 06:39 11/04/16 06:39 Current Medications Acetaminophen (Tylenol) 650 mg PO Q6H PRN PRN Reason: Mild Pain/Headache/T above 101 Stop: 01/01/17 20:40 Albuterol/Ipratropium (Duoneb Neb) 3 ml HHN Q6HRT [facility] Stop: 01/02/17 00:59 Last Admin: 11/04/16 07:43 Dose: 3 ml Aspirin (Ecotrin) 81 mg PO DAILY [facility] Stop: 01/02/17 08:59 Last Admin: 11/04/16 09:48 Dose: 81 mg Bisacodyl (Dulcolax 10 Mg Supp) 10 mg RC DAILY PRN PRN Reason: Constipation Stop: 01/01/17 20:48 Budesonide (Pulmicort) 0.5 mg HHN BIDRT [facility] Stop: 01/02/17 11:59 Last Admin: 11/04/16 07:43 Dose: 0.5 mg Calcitriol (Rocaltrol) 0.25 mcg PO DAILY [facility] Stop: 01/02/17 08:59 Last Admin: 11/04/16 09:48 Dose: 0.25 mcg Calcium Acetate (Phoslo) 667 mg PO DAILY [facility] Stop: 01/02/17 08:59 Last Admin: 11/04/16 09:48 Dose: 667 mg Famotidine (Pepcid) 20 mg PO BID [facility] Stop: 01/02/17 08:59 Last Admin: 11/04/16 09:48 Dose: 20 mg Folic Acid (Folate) 1 mg PO DAILY [facility] Stop: 01/02/17 08:59 Last Admin: 11/04/16 09:48 Dose: 1 mg Levothyroxine Sodium (Synthroid) 0.05 mg PO DAILY [facility] Stop: 01/02/17 08:59 Last Admin: 11/04/16 09:48 Dose: 0.05 mg Lorazepam (Ativan) 0.5 mg PO Q6HR PRN; Protocol PRN Reason: Agitation Stop: 01/01/17 20:48 Last Admin: 11/03/16 16:31 Dose: 0.5 mg Metoprolol Tartrate (Lopressor) 25 mg PO BID [facility] Stop: 01/02/17 08:59 Last Admin: 11/04/16 09:49 Dose: Not Given Miscellaneous (Clinical Monitoring) 1 ea MC DAILY PRN PRN Reason: RENAL Stop: 01/02/17 12:31 Morphine Sulfate (Morphine) 2 mg IVP Q4H PRN PRN Reason: Severe Pain Stop: 01/01/17 20:40 Nitroglycerin (Nitro-Bid) 1 inch TP Q6HR [facility] Stop: 01/02/17 00:00 Last Admin: 11/04/16 06:48 Dose: Not Given Ondansetron HCl (Zofran Odt) 4 mg PO Q6HR PRN PRN Reason: Nausea / Vomiting Stop: 01/01/17 20:48 Senna (Senna) 8.6 mg PO DAILY [facility] Stop: 01/02/17 08:59 Last Admin: 11/04/16 09:48 Dose: 8.6 mg Simvastatin (Zocor) 40 mg PO HS [facility] PRN Reason: Protocol Stop: 01/01/17 20:59 Last Admin: 11/03/16 22:35 Dose: Not Given Sodium Chloride (Saline Flush) 10 ml IV QSHIFT [facility] Stop: 01/02/17 07:59 Last Admin: 11/04/16 09:55 Dose: 10 ml Vitamin B Complex/Vit C/Folic Acid (Vitamin B Complex W/Vitamin C) 1 tab PO DAILY [facility] Stop: 01/02/17 08:59 Last Admin: 11/04/16 09:48 Dose: 1 tab successfully extubated Fluid restriction Daily weights Serial chest x-ray Scheduled for dialysis today, prime w/albumin, support bp w/ levophed Echo revealed ejection fraction 55% but RVSP of 62.3 mmHg Nutritional Asmnt/Malnutr-PDOC - Dietary Evaluation Malnutrition Findings (Please click <Entered> for more info): Nutritional Asmnt/Malnutrition Start: 11/07/16 14: 46 Text: Status: Complete Freq: Document 11/07/16 14:46 GSUN (Rec: 11/07/16 15:10 GSUN [email or web address]) Nutritional Asmnt/Malnutrition Patient General Information Nutritional Screening Moderate Risk Screening Diagnosis ESRD on HD, chest pain, asthma vs COPD, fluid overload vs CHF, HTN Pertinent Medical Hx/Surgical Hx CHD, possible aortic wall repair versus irritable surgery, depression, weakness Subjective Information 56 year old male from SNF, recieves dialysis 3x/wk. Pt is scheduled for dialysis today. 11/04: pt did not tolerate dialysis well, orally intubated at night. 11/06 dinner: pt started on ng tube feeding. Visited pt twice, pt was asleep both times, observed [employer] Renal bag hanging and off, clipboard on pt bed for written communications. Pt is overall very thin, severe fat/muscle wasting to chest and clavicles . Spoke to CATRACHITO Bender, RN reported last bolus feeding at 10am, tolerated well, no residuals, 1 BM so far, no nutritional concerns at this time. CBW 103.3lb via bedscale during visit, questionable difference with EMR weights. Current Diet Order/ Nutrition Support [employer] Renal 150ml q4hrs, providing 1800kcal, 82g protein. Pertinent Medications Dulcolax, Rocaltrol, Folate, Synthroid, Morphine, Zofran, Protonix, Senna, Renagel, Vitamin B Complex W/Vitamin C Pertinent Labs 11/04: phosphorus 7.4H, potasisum 5.3H 11/06: potassium 3.4L 11/07: BUN 59H, creatinine 6.2H Nutritional Hx/Data Height 1.6 m Height (Calculated Centimeters) 160.0 Current Weight (lbs) 50.349 kg Weight (Calculated Kilograms) 50.3 Weight (Calculated Grams) 38528.8 [place] Body Weight 124 Weight Status Approriate GI Symptoms Usual diet at home Dolly Luon: renal, finely chopped, fluid restriction 1200ml, Nephro can QD Skin Integrity/Comment: Homero Galaviz. Skin intact. Estimated Nutritional Goals Calories/Kcals/Kg IBW 124lb/56kg Kcals Calculated 1680-1960kcal (30-35kcal/kg) Protein Calculated 73-90g (1.3-1.6g/kg) Fluid: ml Per MD (dx. CHF) Nutritional Problem 1. Problem Problem Increased kcal and prot needs related to Etiology hypermetabolic state, muscle/ fat depletion aeb Signs/Symptoms: pt is near underweight and intubated on HD, severe fat/ muscle wasting to chest and clavicles Malnutrition Alert Body Fat Depletion (Severe) Mod to Severe Depletion Muscle Mass (Severe) Mod to Severe Depletion Is there a minimum of two criteria Yes selected? Query Text:Check all the applicable criteria. A minimum of two criteria are recommended for diagnosis of either severe or non-severe malnutrition. Intervention/Recommendation Comments 1. Contiue with current tube feeding order, adequate to meet nturitional needs. 2. Recommend swallow eval as needed if pt extubated and appropriate to resume oral diet. Pt's diet at SNF: renal, finely chopped, 1200ml fluid restriction, 1 can renal oral supplement. Expected Outcomes/Goals Expected Outcomes/Goals 1. Pt to meet 100% of estimated nutritional needs while on tube feeding with tolerance.
[2016-11-08] MEDS: Albuterol/Ipratropium Neb 3 ML AERS HHN SCH ×6 (03:01→23:35)
[2016-11-08 07:04] LABS: HEMOGLOBIN 8.6 gm/dL (13.2-17.3); MEAN CORPUSCULAR HEMOGLOBIN 31.9 pg (26.0-30.0); MEAN CORPUSCULAR HGB CONC 31.9 pg (28.0-36.0); PLATELET COUNT 103 Th/cmm (150-400); RED CELL DISTRIBUTION WIDTH 16.6 % (11.5-20.0); WHITE BLOOD COUNT 6.7 Th/cmm (4.8-10.8)
[2016-11-08] MEDS: Budesonide 0.5 Mg/2 mL Ud HHN SCH ×2 (07:35→19:43)
[2016-11-08 08:53] LABS: BAND NEUTROPHILE 5 % (0-10); EOSINOPHIL 1 % (0-5); NEUTROPHILS 81 % (40-80); TOTAL CELLS COUNTED 100
[2016-11-08 08:54] LABS: ANISOCYTOSIS 1+; PLATELET ESTIMATE DECREASED PLATELETS (NORMAL); PLATELET MORPHOLOGY NORMAL (NORMAL)
[2016-11-08] MEDS: Levothyroxine 0.05 Mg Tab PO SCH ×2 (09:00→12:57)
[2016-11-08 10:01] LABS: ABG SOURCE Arterial; ALLEN TEST YES; BE(B) 5.9 mEq/L (-3.0-3.0); HCO3 29.5 mEq/L (20.0-26.0); pH 7.43 (7.35-7.45)
[2016-11-08 10:02] LABS: FIO2 36
--- NOTE | 2016-11-08 10:49 | Diagnostic Imaging Report ---
Portal chest x-ray HISTORY: Shortness of breath Compared with prior exam of November 07, 2016, increasing density is noted in the right lower hemithorax. The findings may be associated with the pleura. Increasing infiltrate also noted within the right lower lobe. The endotracheal tube has been removed. The heart remains enlarged. Surgical changes again noted. IMPRESSION: 1. Increasing density in the right lower hemithorax. Findings may be associated with the pleura. Suggestion of increasing infiltrate also noted in the right lower lobe. Pneumonia with underlying congestive heart failure cannot be excluded. Clinical correlation needed. 2. Status post removal endotracheal tube
--- NOTE | 2016-11-08 11:08 | General Progress Note ---
Subjective - Review of Systems Subjective: Patient is seen and examined. Status post extubation Patient wants to eat food. I reviewed chart from [facility] is reviewed patient had aortic dissection repair and TURP procedure for aortic valve. Patient also had a complicated hospital course with large pleural effusion which required thoracotomy as well Objective - Results Result Diagrams: 11/08/16 06:50 11/07/16 04:45 Recent Labs: Laboratory Last Values WBC 6.7 Th/cmm (4.8-10.8) 11/08/16 06:50 RBC 2.70 Mil/cmm (4.30-5.70) L 11/08/16 06:50 Hgb 8.6 gm/dL (13.2-17.3) L 11/08/16 06:50 Hct 27.0 % (39.0-49.0) L 11/08/16 06:50 MCV 100.0 fl (80-99) H 11/08/16 06:50 MCH 31.9 pg (26.0-30.0) H 11/08/16 06:50 MCHC Differential 31.9 pg (28.0-36.0) 11/08/16 06:50 RDW 16.6 % (11.5-20.0) 11/08/16 06:50 Plt Count 103 Th/cmm (150-400) L 11/08/16 06:50 MPV 7.0 fl 11/08/16 06:50 Neutrophils % 81.4 % (40.0-80.0) H 11/06/16 04:45 Band Neutrophils % 5 % (0-10) 11/08/16 06:50 Lymphocytes % 7.8 % (20.0-50.0) L 11/06/16 04:45 Monocytes % 8.8 % (2.0-10.0) 11/06/16 04:45 Eosinophils % 1.6 % (0.0-5.0) 11/06/16 04:45 Basophils % 0.4 % (0.0-2.0) 11/06/16 04:45 Neutrophils (Manual) 81 % (40-80) H 11/08/16 06:50 Lymphocytes 4 % (20-50) L 11/08/16 06:50 Monocytes 9 % (2-10) 11/08/16 06:50 Eosinophils 1 % (0-5) 11/08/16 06:50 Basophils 0 % (0-3) 11/02/16 18:18 Platelet Estimate DECREASED PLATELETS (NORMAL) 11/08/16 06:50 Platelet Morphology NORMAL (NORMAL) 11/08/16 06:50 Anisocytosis 1+ 11/08/16 06:50 Macrocytosis 1+ 11/05/16 07:14 Ovalocytes 1+ 11/05/16 07:14 RBC Morph Micro Appear ABNORMAL (NORMAL) 11/08/16 06:50 Specimen Source Arterial 11/08/16 09:50 Sample Site Right Radial 11/08/16 09:50 pH 7.43 (7.35-7.45) 11/08/16 09:50 pCO2 47.0 mmHg (35.0-45.0) H 11/08/16 09:50 pO2 68.0 mmHg (80.0-100.0) L 11/08/16 09:50 HCO3 29.5 mEq/L (20.0-26.0) H 11/08/16 09:50 Base Excess 5.9 mEq/L (-3.0-3.0) H 11/08/16 09:50 O2 Saturation 94.0 % (92.0-100.0) 11/08/16 09:50 Ismael Test YES 11/08/16 09:50 Vent Rate NA 11/08/16 09:50 Inspired O2 36 11/08/16 09:50 Tidal Volume NA 11/08/16 09:50 PEEP NA 11/08/16 09:50 Pressure (ins/psv/peep) NA 11/08/16 09:50 Critical Value E.MCMILLAN 11/08/16 09:50 Sodium 134 mEq/L (136-145) L 11/07/16 04:45 Potassium 4.4 mEq/L (3.5-5.1) 11/07/16 04:45 Chloride 101 mEq/L (98-107) 11/07/16 04:45 Carbon Dioxide 24.8 mEq/L (21.0-31.0) 11/07/16 04:45 Anion Gap 12.6 (7.0-16.0) 11/07/16 04:45 BUN 59 mg/dL (7-25) H 11/07/16 04:45 Creatinine 6.2 mg/dL (0.7-1.3) H* 11/07/16 04:45 Est GFR ( Amer) 12.2 ml/min (>90) 11/07/16 04:45 Est GFR (Non-Af Amer) 10.1 ml/min 11/07/16 04:45 BUN/Creatinine Ratio 9.5 11/07/16 04:45 Glucose 85 mg/dL (70-105) 11/07/16 04:45 Calcium 8.1 mg/dL (8.6-10.3) L 11/07/16 04:45 Phosphorus 7.4 mg/dL (2.5-5.0) H 11/04/16 06:39 Magnesium 2.6 mg/dL (1.9-2.7) 11/04/16 06:39 Total Bilirubin 1.2 mg/dL (0.3-1.0) H 11/07/16 04:45 Direct Bilirubin 0.49 mg/dL (0.0-0.2) H 11/06/16 04:45 AST 17 U/L (13-39) 11/07/16 04:45 ALT 8 U/L (7-52) 11/07/16 04:45 Alkaline Phosphatase 123 U/L (34-104) H 11/07/16 04:45 Ammonia 47 umol/L (16-53) 11/06/16 04:45 Troponin I 0.01 ng/mL (0.01-0.05) 11/03/16 20:06 B-Natriuretic Peptide 1020.0 pg/mL (5.0-100.0) H 11/07/16 04:45 Total Protein 5.5 gm/dL (6.0-8.3) L 11/07/16 04:45 Albumin 3.0 gm/dL (4.2-5.5) L 11/07/16 04:45 Globulin 2.5 gm/dL 11/07/16 04:45 Albumin/Globulin Ratio 1.2 (1.0-1.8) 11/07/16 04:45 Triglycerides 80 mg/dL (<150) 11/03/16 02:29 Cholesterol 138 mg/dL (<200) 11/03/16 02:29 LDL Cholesterol Direct 60 mg/dL (75-193) L 11/03/16 02:29 HDL Cholesterol 59 mg/dL (23-92) 11/03/16 02:29 TSH 2.42 uIU/ml (0.34-5.60) 11/06/16 04:45 - Physical Exam Vitals and I&O: Vital Signs Temp 99.3 F 11/08/16 08:00 Pulse 63 11/08/16 10:59 Resp 18 11/08/16 10:59 BP 152/81 11/08/16 10:59 Pulse Ox 99 11/08/16 10:59 Intake & Output 11/07/16 11/08/16 11/08/16 18:59 06:59 18:59 Intake Total 550 Output Total 0 0 Balance 550 0 Weight (lbs) 50.712 kg 50.712 kg 49.804 kg Intake: Oral 100 Tube Feeding 450 Output: Gastric Drainage 0 0 Urine 0 0 Emesis 0 0 Hemodialysis 0 0 Other: # Voids 0 0 # Bowel Movements 0 0 Active Medications: Current Medications Acetaminophen (Tylenol) 650 mg PO Q6H PRN PRN Reason: Mild Pain/Headache/T above 101 Stop: 01/01/17 20:40 Albuterol/Ipratropium (Duoneb Neb) 3 ml HHN Q4HRT [facility] Stop: 01/04/17 02:59 Last Admin: 11/08/16 07:34 Dose: 3 ml Albuterol/Ipratropium (Duoneb Neb) 3 ml HHN Q2HRT PRN PRN Reason: Wheezing Stop: 01/04/17 13:41 Aspirin (Aspirin Chewable) 81 mg PO DAILY [facility] Stop: 01/05/17 08:59 Last Admin: 11/07/16 09:00 Dose: 81 mg Bisacodyl (Dulcolax 10 Mg Supp) 10 mg RC DAILY PRN PRN Reason: Constipation Stop: 01/01/17 20:48 Last Admin: 11/07/16 13:19 Dose: 10 mg Budesonide (Pulmicort) 0.5 mg HHN BIDRT [facility] Stop: 01/02/17 11:59 Last Admin: 11/08/16 07:35 Dose: 0.5 mg Calcitriol (Rocaltrol) 0.25 mcg PO DAILY [facility] Stop: 01/02/17 08:59 Last Admin: 11/07/16 09:00 Dose: 0.25 mcg Chlorhexidine Gluconate (Peridex) 15 ml MM 0800,1999 [facility] Stop: 01/04/17 07:59 Last Admin: 11/07/16 22:13 Dose: 15 ml Famotidine (Pepcid) 20 mg PO BID [facility] Stop: 01/02/17 08:59 Last Admin: 11/07/16 19:17 Dose: 20 mg Folic Acid (Folate) 1 mg PO DAILY [facility] Stop: 01/02/17 08:59 Last Admin: 11/07/16 13:08 Dose: 1 mg Heparin Sodium (Porcine) (Heparin) 5,000 units SUBQ Q12HR [facility] Stop: 01/04/17 20:59 Last Admin: 11/07/16 22:13 Dose: 5,000 units Norepinephrine Bitartrate 4 mg (/ Dextrose) 254 mls @ 19.05 mls/hr IV PRN PRN; Protocol; 5 MCG/MIN PRN Reason: BP MAINTENANCE (PER PROTOCOL) Stop: 01/03/17 21:31 Last Admin: 11/07/16 19:10 Dose: 5 mcg/min, 19.05 mls/hr Levothyroxine Sodium (Synthroid) 0.05 mg PO DAILY [facility] Stop: 01/02/17 08:59 Last Admin: 11/07/16 09:00 Dose: 0.05 mg Lorazepam (Ativan) 0.5 mg PO Q6HR PRN; Protocol PRN Reason: Agitation Stop: 01/01/17 20:48 Last Admin: 11/06/16 20:32 Dose: 0.5 mg Metoprolol Tartrate (Lopressor) 25 mg PO BID [facility] Stop: 01/02/17 08:59 Last Admin: 11/07/16 17:00 Dose: Not Given Miscellaneous (Clinical Monitoring) 1 ea MC DAILY PRN PRN Reason: RENAL Stop: 01/02/17 12:31 Morphine Sulfate (Morphine) 2 mg IVP Q4H PRN PRN Reason: Severe Pain Stop: 01/01/17 20:40 Last Admin: 11/07/16 03:56 Dose: 2 mg Ondansetron HCl (Zofran Odt) 4 mg PO Q6HR PRN PRN Reason: Nausea / Vomiting Stop: 01/01/17 20:48 Pantoprazole Sodium (Protonix) 40 mg IVP DAILY [facility] Stop: 01/05/17 08:59 Last Admin: 11/07/16 09:00 Dose: 40 mg Senna (Senna) 8.6 mg PO DAILY [facility] Stop: 01/02/17 08:59 Last Admin: 11/07/16 09:00 Dose: 8.6 mg Sevelamer HCl (Renagel) 800 mg PO TIDWM [facility] Stop: 01/03/17 16:59 Last Admin: 11/07/16 19:14 Dose: 800 mg Sildenafil Citrate (Revatio) 20 mg PO TID [facility] Stop: 01/04/17 13:59 Last Admin: 11/07/16 22:14 Dose: 20 mg Simvastatin (Zocor) 40 mg PO HS [facility] PRN Reason: Protocol Stop: 01/01/17 20:59 Last Admin: 11/07/16 22:14 Dose: 40 mg Sodium Chloride (Saline Flush) 10 ml IV QSHIFT [facility] Stop: 01/02/17 07:59 Last Admin: 11/07/16 22:12 Dose: 10 ml Vitamin B Complex/Vit C/Folic Acid (Vitamin B Complex W/Vitamin C) 1 tab PO DAILY [facility] Stop: 01/02/17 08:59 Last Admin: 11/07/16 13:18 Dose: 1 tab General: Alert, Oriented x3, Cooperative, Other HEENT: Atraumatic, Mucous membr. moist/pink Neck: Supple, JVD, Other Cardiovascular: Regular rate, Normal S1, Normal S2, Systolic murmurs Lungs: Other (rhonchi, no wheeze) Abdomen: Bowel sounds, Soft Extremities: no Edema Neurological: Normal speech, Normal tone, Sensation intact, Reflexes 2+ Skin: no Rash Psych/Mental Status: Mood NL - Procedures Procedures: Procedures Procedure Code Date INSERT EMERGENCY AIRWAY 16530 11/02/16 INSERTION OF ENDOTRACHEAL AIRWAY INTO [place]HE[place], VIA OPENING [id number] 11/02/16 RESPIRATORY VENTILATION, 24-96 CONSECUTIVE HOURS [id number] 11/02/16 VENT MGMT INPAT INIT DAY 11/02/16 VENT MGMT INPAT SUBQ DAY 51977 11/02/16 Assessment/Plan - Assessment Assessment: S/P extubation. S/P Aortic dissection repair in 2010 S/P TEVAR in 2010. Moderate to severe pulmonary hypertension. Congestive heart failure most likely due to diastolic dysfunction. End-stage renal disease on hemodialysis. Hypertension. Generalized debility. Declining self-care and mobility Anemia of chronic kidney disease Hypothyroidism. - Plan Plan: Transfer to tele unit. Nebulizer treatment. Pulmonary follow-up. PO proton pump inhibitor. Subcutaneous heparin. Adding sildenafil for pulmonary hypertension. Hemodialysis. Cardiology and nephrology follow-up. General nursing care. ICU care. Increased activity. Follow-up chest x-ray. Follow lab. Pulmicort. Albuterol and Atrovent HHN. Care plan reviewed and discussed with staff. Nutritional Asmnt/Malnutr-PDOC - Dietary Evaluation Malnutrition Findings (Please click <Entered> for more info): Nutritional Asmnt/Malnutrition Start: 11/07/16 14: 46 Text: Status: Complete Freq: Document 11/07/16 14:46 GSUN (Rec: 11/07/16 15:10 GSUN [id number]) Nutritional Asmnt/Malnutrition Patient General Information Nutritional Screening Moderate Risk Screening Diagnosis ESRD on HD, chest pain, asthma vs COPD, fluid overload vs CHF, HTN Pertinent Medical Hx/Surgical Hx CHD, possible aortic wall repair versus irritable surgery, depression, weakness Subjective Information 56 year old male from SNF, recieves dialysis 3x/wk. Pt is scheduled for dialysis today. 11/04: pt did not tolerate dialysis well, orally intubated at night. 11/06 dinner: pt started on ng tube feeding. Visited pt twice, pt was asleep both times, observed [employer] Renal bag hanging and off, clipboard on pt bed for written communications. Pt is overall very thin, severe fat/muscle wasting to chest and clavicles . Spoke to CATRACHITO Bender, RN reported last bolus feeding at 10am, tolerated well, no residuals, 1 BM so far, no nutritional concerns at this time. CBW 103.3lb via bedscale during visit, questionable difference with EMR weights. Current Diet Order/ Nutrition Support [employer] Renal 150ml q4hrs, providing 1800kcal, 82g protein. Pertinent Medications Dulcolax, Rocaltrol, Folate, Synthroid, Morphine, Zofran, Protonix, Senna, Renagel, Vitamin B Complex W/Vitamin C Pertinent Labs 11/04: phosphorus 7.4H, potasisum 5.3H 11/06: potassium 3.4L 11/07: BUN 59H, creatinine 6.2H Nutritional Hx/Data Height 1.6 m Height (Calculated Centimeters) 160.0 Current Weight (lbs) 50.349 kg Weight (Calculated Kilograms) 50.3 Weight (Calculated Grams) 14666.8 [place] Body Weight 124 Weight Status Approriate GI Symptoms Usual diet at home Dolly [place]: renal, finely chopped, fluid restriction 1200ml, Nephro can QD Skin Integrity/Comment: Homero 17. Skin intact. Estimated Nutritional Goals Calories/Kcals/Kg IBW 124lb/56kg Kcals Calculated 1680-1960kcal (30-35kcal/kg) Protein Calculated 73-90g (1.3-1.6g/kg) Fluid: ml Per MD (dx. CHF) Nutritional Problem 1. Problem Problem Increased kcal and prot needs related to Etiology hypermetabolic state, muscle/ fat depletion aeb Signs/Symptoms: pt is near underweight and intubated on HD, severe fat/ muscle wasting to chest and clavicles Malnutrition Alert Body Fat Depletion (Severe) Mod to Severe Depletion Muscle Mass (Severe) Mod to Severe Depletion Is there a minimum of two criteria Yes selected? Query Text:Check all the applicable criteria. A minimum of two criteria are recommended for diagnosis of either severe or non-severe malnutrition. Intervention/Recommendation Comments 1. Contiue with current tube feeding order, adequate to meet nturitional needs. 2. Recommend swallow eval as needed if pt extubated and appropriate to resume oral diet. Pt's diet at SNF: renal, finely chopped, 1200ml fluid restriction, 1 can renal oral supplement. Expected Outcomes/Goals Expected Outcomes/Goals 1. Pt to meet 100% of estimated nutritional needs while on tube feeding with tolerance.
--- NOTE | 2016-11-08 12:44 | General Progress Note ---
Subjective - Review of Systems Service Date: 11/08/16 Subjective: more awake, verbal, eating lunch Objective - Results Result Diagrams: 11/08/16 06:50 11/07/16 04:45 Recent Labs: Laboratory Last Values WBC 6.7 Th/cmm (4.8-10.8) 11/08/16 06:50 RBC 2.70 Mil/cmm (4.30-5.70) L 11/08/16 06:50 Hgb 8.6 gm/dL (13.2-17.3) L 11/08/16 06:50 Hct 27.0 % (39.0-49.0) L 11/08/16 06:50 MCV 100.0 fl (80-99) H 11/08/16 06:50 MCH 31.9 pg (26.0-30.0) H 11/08/16 06:50 MCHC Differential 31.9 pg (28.0-36.0) 11/08/16 06:50 RDW 16.6 % (11.5-20.0) 11/08/16 06:50 Plt Count 103 Th/cmm (150-400) L 11/08/16 06:50 MPV 7.0 fl 11/08/16 06:50 Neutrophils % 81.4 % (40.0-80.0) H 11/06/16 04:45 Band Neutrophils % 5 % (0-10) 11/08/16 06:50 Lymphocytes % 7.8 % (20.0-50.0) L 11/06/16 04:45 Monocytes % 8.8 % (2.0-10.0) 11/06/16 04:45 Eosinophils % 1.6 % (0.0-5.0) 11/06/16 04:45 Basophils % 0.4 % (0.0-2.0) 11/06/16 04:45 Neutrophils (Manual) 81 % (40-80) H 11/08/16 06:50 Lymphocytes 4 % (20-50) L 11/08/16 06:50 Monocytes 9 % (2-10) 11/08/16 06:50 Eosinophils 1 % (0-5) 11/08/16 06:50 Basophils 0 % (0-3) 11/02/16 18:18 Platelet Estimate DECREASED PLATELETS (NORMAL) 11/08/16 06:50 Platelet Morphology NORMAL (NORMAL) 11/08/16 06:50 Anisocytosis 1+ 11/08/16 06:50 Macrocytosis 1+ 11/05/16 07:14 Ovalocytes 1+ 11/05/16 07:14 RBC Morph Micro Appear ABNORMAL (NORMAL) 11/08/16 06:50 Specimen Source Arterial 11/08/16 09:50 Sample Site Right Radial 11/08/16 09:50 pH 7.43 (7.35-7.45) 11/08/16 09:50 pCO2 47.0 mmHg (35.0-45.0) H 11/08/16 09:50 pO2 68.0 mmHg (80.0-100.0) L 11/08/16 09:50 HCO3 29.5 mEq/L (20.0-26.0) H 11/08/16 09:50 Base Excess 5.9 mEq/L (-3.0-3.0) H 11/08/16 09:50 O2 Saturation 94.0 % (92.0-100.0) 11/08/16 09:50 Ismael Test YES 11/08/16 09:50 Vent Rate NA 11/08/16 09:50 Inspired O2 36 11/08/16 09:50 Tidal Volume NA 11/08/16 09:50 PEEP NA 11/08/16 09:50 Pressure (ins/psv/peep) NA 11/08/16 09:50 Critical Value E.MCMILLAN 11/08/16 09:50 Sodium 134 mEq/L (136-145) L 11/07/16 04:45 Potassium 4.4 mEq/L (3.5-5.1) 11/07/16 04:45 Chloride 101 mEq/L (98-107) 11/07/16 04:45 Carbon Dioxide 24.8 mEq/L (21.0-31.0) 11/07/16 04:45 Anion Gap 12.6 (7.0-16.0) 11/07/16 04:45 BUN 59 mg/dL (7-25) H 11/07/16 04:45 Creatinine 6.2 mg/dL (0.7-1.3) H* 11/07/16 04:45 Est GFR ( Amer) 12.2 ml/min (>90) 11/07/16 04:45 Est GFR (Non-Af Amer) 10.1 ml/min 11/07/16 04:45 BUN/Creatinine Ratio 9.5 11/07/16 04:45 Glucose 85 mg/dL (70-105) 11/07/16 04:45 Calcium 8.1 mg/dL (8.6-10.3) L 11/07/16 04:45 Phosphorus 7.4 mg/dL (2.5-5.0) H 11/04/16 06:39 Magnesium 2.6 mg/dL (1.9-2.7) 11/04/16 06:39 Total Bilirubin 1.2 mg/dL (0.3-1.0) H 11/07/16 04:45 Direct Bilirubin 0.49 mg/dL (0.0-0.2) H 11/06/16 04:45 AST 17 U/L (13-39) 11/07/16 04:45 ALT 8 U/L (7-52) 11/07/16 04:45 Alkaline Phosphatase 123 U/L (34-104) H 11/07/16 04:45 Ammonia 47 umol/L (16-53) 11/06/16 04:45 Troponin I 0.01 ng/mL (0.01-0.05) 11/03/16 20:06 B-Natriuretic Peptide 1020.0 pg/mL (5.0-100.0) H 11/07/16 04:45 Total Protein 5.5 gm/dL (6.0-8.3) L 11/07/16 04:45 Albumin 3.0 gm/dL (4.2-5.5) L 11/07/16 04:45 Globulin 2.5 gm/dL 11/07/16 04:45 Albumin/Globulin Ratio 1.2 (1.0-1.8) 11/07/16 04:45 Triglycerides 80 mg/dL (<150) 11/03/16 02:29 Cholesterol 138 mg/dL (<200) 11/03/16 02:29 LDL Cholesterol Direct 60 mg/dL (75-193) L 11/03/16 02:29 HDL Cholesterol 59 mg/dL (23-92) 11/03/16 02:29 TSH 2.42 uIU/ml (0.34-5.60) 11/06/16 04:45 - Physical Exam Vitals and I&O: Vital Signs Temp 99.3 F 11/08/16 08:00 Pulse 76 11/08/16 12:34 Resp 20 11/08/16 12:34 BP 152/81 11/08/16 10:59 Pulse Ox 96 11/08/16 12:34 Intake & Output 11/07/16 11/08/16 11/08/16 18:59 06:59 18:59 Intake Total 550 Output Total 0 0 Balance 550 0 Weight (lbs) 50.712 kg 50.712 kg 49.804 kg Intake: Oral 100 Tube Feeding 450 Output: Gastric Drainage 0 0 Urine 0 0 Emesis 0 0 Hemodialysis 0 0 Other: # Voids 0 0 # Bowel Movements 0 0 Active Medications: Current Medications Acetaminophen (Tylenol) 650 mg PO Q6H PRN PRN Reason: Mild Pain/Headache/T above 101 Stop: 01/01/17 20:40 Albuterol/Ipratropium (Duoneb Neb) 3 ml HHN Q4HRT [facility] Stop: 01/04/17 02:59 Last Admin: 11/08/16 12:33 Dose: 3 ml Albuterol/Ipratropium (Duoneb Neb) 3 ml HHN Q2HRT PRN PRN Reason: Wheezing Stop: 01/04/17 13:41 Aspirin (Aspirin Chewable) 81 mg PO DAILY [facility] Stop: 01/05/17 08:59 Last Admin: 11/07/16 09:00 Dose: 81 mg Bisacodyl (Dulcolax 10 Mg Supp) 10 mg RC DAILY PRN PRN Reason: Constipation Stop: 01/01/17 20:48 Last Admin: 11/07/16 13:19 Dose: 10 mg Budesonide (Pulmicort) 0.5 mg HHN BIDRT [facility] Stop: 01/02/17 11:59 Last Admin: 11/08/16 07:35 Dose: 0.5 mg Calcitriol (Rocaltrol) 0.25 mcg PO DAILY [facility] Stop: 01/02/17 08:59 Last Admin: 11/07/16 09:00 Dose: 0.25 mcg Chlorhexidine Gluconate (Peridex) 15 ml MM 0800,2000 [facility] Stop: 01/04/17 07:59 Last Admin: 11/07/16 22:13 Dose: 15 ml Famotidine (Pepcid) 20 mg PO BID [facility] Stop: 01/02/17 08:59 Last Admin: 11/07/16 19:17 Dose: 20 mg Folic Acid (Folate) 1 mg PO DAILY [facility] Stop: 01/02/17 08:59 Last Admin: 11/07/16 13:08 Dose: 1 mg Heparin Sodium (Porcine) (Heparin) 5,000 units SUBQ Q12HR [facility] Stop: 01/04/17 20:59 Last Admin: 11/07/16 22:13 Dose: 5,000 units Norepinephrine Bitartrate 4 mg (/ Dextrose) 254 mls @ 19.05 mls/hr IV PRN PRN; Protocol; 5 MCG/MIN PRN Reason: BP MAINTENANCE (PER PROTOCOL) Stop: 01/03/17 21:31 Last Admin: 11/07/16 19:10 Dose: 5 mcg/min, 19.05 mls/hr Levothyroxine Sodium (Synthroid) 0.05 mg PO DAILY [facility] Stop: 01/02/17 08:59 Last Admin: 11/07/16 09:00 Dose: 0.05 mg Lorazepam (Ativan) 0.5 mg PO Q6HR PRN; Protocol PRN Reason: Agitation Stop: 01/01/17 20:48 Last Admin: 11/06/16 20:32 Dose: 0.5 mg Metoprolol Tartrate (Lopressor) 25 mg PO BID [facility] Stop: 01/02/17 08:59 Last Admin: 11/07/16 17:00 Dose: Not Given Miscellaneous (Clinical Monitoring) 1 ea MC DAILY PRN PRN Reason: RENAL Stop: 01/02/17 12:31 Morphine Sulfate (Morphine) 2 mg IVP Q4H PRN PRN Reason: Severe Pain Stop: 01/01/17 20:40 Last Admin: 11/07/16 03:56 Dose: 2 mg Ondansetron HCl (Zofran Odt) 4 mg PO Q6HR PRN PRN Reason: Nausea / Vomiting Stop: 01/01/17 20:48 Pantoprazole Sodium (Protonix) 40 mg IVP DAILY [facility] Stop: 01/05/17 08:59 Last Admin: 11/07/16 09:00 Dose: 40 mg Senna (Senna) 8.6 mg PO DAILY [facility] Stop: 01/02/17 08:59 Last Admin: 11/07/16 09:00 Dose: 8.6 mg Sevelamer HCl (Renagel) 800 mg PO TIDWM [facility] Stop: 01/03/17 16:59 Last Admin: 11/07/16 19:14 Dose: 800 mg Sildenafil Citrate (Revatio) 20 mg PO TID [facility] Stop: 01/04/17 13:59 Last Admin: 11/07/16 22:14 Dose: 20 mg Simvastatin (Zocor) 40 mg PO HS [facility] PRN Reason: Protocol Stop: 01/01/17 20:59 Last Admin: 11/07/16 22:14 Dose: 40 mg Sodium Chloride (Saline Flush) 10 ml IV QSHIFT [facility] Stop: 01/02/17 07:59 Last Admin: 11/07/16 22:12 Dose: 10 ml Vitamin B Complex/Vit C/Folic Acid (Vitamin B Complex W/Vitamin C) 1 tab PO DAILY [facility] Stop: 01/02/17 08:59 Last Admin: 11/07/16 13:18 Dose: 1 tab General: Alert, Oriented x3, Cooperative, Other HEENT: Atraumatic, Mucous membr. moist/pink Neck: Supple, JVD, Other Cardiovascular: Regular rate, Normal S1, Normal S2, Systolic murmurs Lungs: Other (rhonchi, no wheeze) Abdomen: Bowel sounds, Soft Extremities: no Edema Neurological: Normal speech, Normal tone, Sensation intact, Reflexes 2+ Skin: no Rash Psych/Mental Status: Mood NL - Procedures Procedures: Procedures Procedure Code Date INSERT EMERGENCY AIRWAY 83247 11/02/16 INSERTION OF ENDOTRACHEAL AIRWAY INTO [place], VIA OPENING [id number] 11/02/16 RESPIRATORY VENTILATION, 24-96 CONSECUTIVE HOURS [id number] 11/02/16 VENT MGMT INPAT INIT DAY 92594 11/02/16 VENT MGMT INPAT SUBQ DAY 69534 11/02/16 Assessment/Plan - Assessment Assessment: ESRD on hemodialysis Essential hypertension Anemia of chronic kidney disease GERD Acute coronary syndrome secondary to unstable angina Respiratory distress secondary to fluid overload, possible acute on chronic CHF Hypothyroidism Anxiety disorder Status post respiratory arrest off ventilator Severe pulmonary hypertension - Plan Plan: Lab - Result Diagrams 11/04/16 06:39 11/04/16 06:39 Current Medications Acetaminophen (Tylenol) 650 mg PO Q6H PRN PRN Reason: Mild Pain/Headache/T above 101 Stop: 01/01/17 20:40 Albuterol/Ipratropium (Duoneb Neb) 3 ml HHN Q6HRT [facility] Stop: 01/02/17 00:59 Last Admin: 11/04/16 07:43 Dose: 3 ml Aspirin (Ecotrin) 81 mg PO DAILY [facility] Stop: 01/02/17 08:59 Last Admin: 11/04/16 09:48 Dose: 81 mg Bisacodyl (Dulcolax 10 Mg Supp) 10 mg RC DAILY PRN PRN Reason: Constipation Stop: 01/01/17 20:48 Budesonide (Pulmicort) 0.5 mg HHN BIDRT [facility] Stop: 01/02/17 11:59 Last Admin: 11/04/16 07:43 Dose: 0.5 mg Calcitriol (Rocaltrol) 0.25 mcg PO DAILY [facility] Stop: 01/02/17 08:59 Last Admin: 11/04/16 09:48 Dose: 0.25 mcg Calcium Acetate (Phoslo) 667 mg PO DAILY [facility] Stop: 01/02/17 08:59 Last Admin: 11/04/16 09:48 Dose: 667 mg Famotidine (Pepcid) 20 mg PO BID [facility] Stop: 01/02/17 08:59 Last Admin: 11/04/16 09:48 Dose: 20 mg Folic Acid (Folate) 1 mg PO DAILY [facility] Stop: 01/02/17 08:59 Last Admin: 11/04/16 09:48 Dose: 1 mg Levothyroxine Sodium (Synthroid) 0.05 mg PO DAILY [facility] Stop: 01/02/17 08:59 Last Admin: 11/04/16 09:48 Dose: 0.05 mg Lorazepam (Ativan) 0.5 mg PO Q6HR PRN; Protocol PRN Reason: Agitation Stop: 01/01/17 20:48 Last Admin: 11/03/16 16:31 Dose: 0.5 mg Metoprolol Tartrate (Lopressor) 25 mg PO BID [facility] Stop: 01/02/17 08:59 Last Admin: 11/04/16 09:49 Dose: Not Given Miscellaneous (Clinical Monitoring) 1 ea MC DAILY PRN PRN Reason: RENAL Stop: 01/02/17 12:31 Morphine Sulfate (Morphine) 2 mg IVP Q4H PRN PRN Reason: Severe Pain Stop: 01/01/17 20:40 Nitroglycerin (Nitro-Bid) 1 inch TP Q6HR [facility] Stop: 01/02/17 00:00 Last Admin: 11/04/16 06:48 Dose: Not Given Ondansetron HCl (Zofran Odt) 4 mg PO Q6HR PRN PRN Reason: Nausea / Vomiting Stop: 01/01/17 20:48 Senna (Senna) 8.6 mg PO DAILY [facility] Stop: 01/02/17 08:59 Last Admin: 11/04/16 09:48 Dose: 8.6 mg Simvastatin (Zocor) 40 mg PO HS [facility] PRN Reason: Protocol Stop: 01/01/17 20:59 Last Admin: 11/03/16 22:35 Dose: Not Given Sodium Chloride (Saline Flush) 10 ml IV QSHIFT [facility] Stop: 01/02/17 07:59 Last Admin: 11/04/16 09:55 Dose: 10 ml Vitamin B Complex/Vit C/Folic Acid (Vitamin B Complex W/Vitamin C) 1 tab PO DAILY [facility] Stop: 01/02/17 08:59 Last Admin: 11/04/16 09:48 Dose: 1 tab successfully extubated Fluid restriction Daily weights Serial chest x-ray Scheduled for dialysis tomorrow, prime w/albumin Echo revealed ejection fraction 55% but RVSP of 62.3 mmHg Nutritional Asmnt/Malnutr-PDOC - Dietary Evaluation Malnutrition Findings (Please click <Entered> for more info): Nutritional Asmnt/Malnutrition Start: 11/07/16 14: 46 Text: Status: Complete Freq: Document 11/07/16 14:46 GSUN (Rec[facility] 11/07/16 15:10 [facility] Nutritional Asmnt/Malnutrition Patient General Information Nutritional Screening Moderate Risk Screening Diagnosis ESRD on HD, chest pain, asthma vs COPD, fluid overload vs CHF, HTN Pertinent Medical Hx/Surgical Hx CHD, possible aortic wall repair versus irritable surgery, depression, weakness Subjective Information 56 year old male from SNF, recieves dialysis 3x/wk. Pt is scheduled for dialysis today. 11/04: pt did not tolerate dialysis well, orally intubated at night. 11/06 dinner: pt started on ng tube feeding. Visited pt twice, pt was asleep both times, observed [employer] Renal bag hanging and off, clipboard on pt bed for written communications. Pt is overall very thin, severe fat/muscle wasting to chest and clavicles . Spoke to RN Yulia, RN reported last bolus feeding at 10am, tolerated well, no residuals, 1 BM so far, no nutritional concerns at this time. CBW 103.3lb via bedscale during visit, questionable difference with EMR weights. Current Diet Order/ Nutrition Support [employer] Renal 150ml q4hrs, providing 1800kcal, 82g protein. Pertinent Medications Dulcolax, Rocaltrol, Folate, Synthroid, Morphine, Zofran, Protonix, Senna, Renagel, Vitamin B Complex W/Vitamin C Pertinent Labs 11/04: phosphorus 7.4H, potasisum 5.3H 11/06: potassium 3.4L 11/07: BUN 59H, creatinine 6.2H Nutritional Hx/Data Height 1.6 m Height (Calculated Centimeters) 160.0 Current Weight (lbs) 50.349 kg Weight (Calculated Kilograms) 50.3 Weight (Calculated Grams) 75363.8 [place] Body Weight 124 Weight Status Approriate GI Symptoms Usual diet at home [place]: renal, finely chopped, fluid restriction 1200ml, Nephro can QD Skin Integrity/Comment: Homero 17. Skin intact. Estimated Nutritional Goals Calories/Kcals/Kg IBW 124lb/56kg Kcals Calculated 1680-1960kcal (30-35kcal/kg) Protein Calculated 73-90g (1.3-1.6g/kg) Fluid: ml Per MD (dx. CHF) Nutritional Problem 1. Problem Problem Increased kcal and prot needs related to Etiology hypermetabolic state, muscle/ fat depletion aeb Signs/Symptoms: pt is near underweight and intubated on HD, severe fat/ muscle wasting to chest and clavicles Malnutrition Alert Body Fat Depletion (Severe) Mod to Severe Depletion Muscle Mass (Severe) Mod to Severe Depletion Is there a minimum of two criteria Yes selected? Query Text:Check all the applicable criteria. A minimum of two criteria are recommended for diagnosis of either severe or non-severe malnutrition. Intervention/Recommendation Comments 1. Contiue with current tube feeding order, adequate to meet nturitional needs. 2. Recommend swallow eval as needed if pt extubated and appropriate to resume oral diet. Pt's diet at SNF: renal, finely chopped, 1200ml fluid restriction, 1 can renal oral supplement. Expected Outcomes/Goals Expected Outcomes/Goals 1. Pt to meet 100% of estimated nutritional needs while on tube feeding with tolerance.
[2016-11-08] MEDS: Vitamin B Complex w/Vitamin C Tab PO SCH (12:57)
[2016-11-08] MEDS: Aspirin 81mg Chewable Tab PO SCH (12:58)
[2016-11-08] MEDS: Chlorhexidine Gluconate 0.12% 15mL Mouthwash MM SCH ×2 (16:57→20:00)
[2016-11-09] MEDS: Albuterol/Ipratropium Neb 3 ML AERS HHN SCH ×5 (07:17→19:40)
[2016-11-09] MEDS: Budesonide 0.5 Mg/2 mL Ud HHN SCH ×2 (07:17→19:39)
[2016-11-09 07:47] LABS: HEMATOCRIT 28.6 % (39.0-49.0); HEMOGLOBIN 9.4 gm/dL (13.2-17.3); MEAN CELL VOLUME 100.1 fl (80-99); MEAN CORPUSCULAR HEMOGLOBIN 32.8 pg (26.0-30.0); MEAN CORPUSCULAR HGB CONC 32.8 pg (28.0-36.0); MEAN PLATELET VOLUME 7.8 fl; PLATELET COUNT 102 Th/cmm (150-400); RED BLOOD COUNT 2.86 Mil/cmm (4.30-5.70); RED CELL DISTRIBUTION WIDTH 16.5 % (11.5-20.0); WHITE BLOOD COUNT 5.5 Th/cmm (4.8-10.8)
[2016-11-09 08:09] LABS: HEP B CORE IGM Negative (Negative); HEP C ANTIBODY <0.1 s/co ratio (0.0-0.9)
[2016-11-09 08:09] LABS: ALB/GLOB RATIO 1.4 (1.0-1.8); ANION GAP 12.8 (7.0-16.0); BUN/CREATININE RATIO 10.4; CALCIUM SERUM 8.5 mg/dL (8.6-10.3); CARBON DIOXIDE 25.8 mEq/L (21.0-31.0); POTASSIUM SERUM 4.6 mEq/L (3.5-5.1)
[2016-11-09 08:16] LABS: CREATININE - SERUM 5.5 mg/dL (0.7-1.3)
[2016-11-09 09:50] LABS: ANISOCYTOSIS 1+; BAND NEUTROPHILE 2 % (0-10); BASOPHIL 3 % (0-3); EOSINOPHIL 3 % (0-5); NEUTROPHILS 74 % (40-80); PLATELET ESTIMATE DECREASED PLATELETS (NORMAL); PLATELET MORPHOLOGY NORMAL (NORMAL); TOTAL CELLS COUNTED 100
--- NOTE | 2016-11-09 09:54 | General Progress Note ---
Subjective - Review of Systems Subjective: Patient is seen and examined. Patient wants to go home. Patient is on dialysis. Consultants note reviewed. Objective - Results Result Diagrams: 11/09/16 07:20 11/09/16 07:20 Recent Labs: Laboratory Last Values WBC 5.5 Th/cmm (4.8-10.8) 11/09/16 07:20 RBC 2.86 Mil/cmm (4.30-5.70) L 11/09/16 07:20 Hgb 9.4 gm/dL (13.2-17.3) L 11/09/16 07:20 Hct 28.6 % (39.0-49.0) L 11/09/16 07:20 MCV 100.1 fl (80-99) H 11/09/16 07:20 MCH 32.8 pg (26.0-30.0) H 11/09/16 07:20 MCHC Differential 32.8 pg (28.0-36.0) 11/09/16 07:20 RDW 16.5 % (11.5-20.0) 11/09/16 07:20 Plt Count 102 Th/cmm (150-400) L 11/09/16 07:20 MPV 7.8 fl 11/09/16 07:20 Neutrophils % 81.4 % (40.0-80.0) H 11/06/16 04:45 Band Neutrophils % 2 % (0-10) 11/09/16 07:20 Lymphocytes % 7.8 % (20.0-50.0) L 11/06/16 04:45 Monocytes % 8.8 % (2.0-10.0) 11/06/16 04:45 Eosinophils % 1.6 % (0.0-5.0) 11/06/16 04:45 Basophils % 0.4 % (0.0-2.0) 11/06/16 04:45 Neutrophils (Manual) 74 % (40-80) 11/09/16 07:20 Lymphocytes 10 % (20-50) L 11/09/16 07:20 Monocytes 8 % (2-10) 11/09/16 07:20 Eosinophils 3 % (0-5) 11/09/16 07:20 Basophils 3 % (0-3) 11/09/16 07:20 Platelet Estimate DECREASED PLATELETS (NORMAL) 11/09/16 07:20 Platelet Morphology NORMAL (NORMAL) 11/09/16 07:20 Anisocytosis 1+ 11/09/16 07:20 Macrocytosis 1+ 11/05/16 07:14 Ovalocytes 1+ 11/05/16 07:14 RBC Morph Micro Appear ABNORMAL (NORMAL) 11/09/16 07:20 Specimen Source Arterial 11/08/16 09:50 Sample Site Right Radial 11/08/16 09:50 pH 7.43 (7.35-7.45) 11/08/16 09:50 pCO2 47.0 mmHg (35.0-45.0) H 11/08/16 09:50 pO2 68.0 mmHg (80.0-100.0) L 11/08/16 09:50 HCO3 29.5 mEq/L (20.0-26.0) H 11/08/16 09:50 Base Excess 5.9 mEq/L (-3.0-3.0) H 11/08/16 09:50 O2 Saturation 94.0 % (92.0-100.0) 11/08/16 09:50 Ismael Test YES 11/08/16 09:50 Vent Rate NA 11/08/16 09:50 Inspired O2 36 11/08/16 09:50 Tidal Volume NA 11/08/16 09:50 PEEP NA 11/08/16 09:50 Pressure (ins/psv/peep) NA 11/08/16 09:50 Critical Value E.MCMILLAN 11/08/16 09:50 Sodium 135 mEq/L (136-145) L 11/09/16 07:20 Potassium 4.6 mEq/L (3.5-5.1) 11/09/16 07:20 Chloride 101 mEq/L (98-107) 11/09/16 07:20 Carbon Dioxide 25.8 mEq/L (21.0-31.0) 11/09/16 07:20 Anion Gap 12.8 (7.0-16.0) 11/09/16 07:20 BUN 57 mg/dL (7-25) H 11/09/16 07:20 Creatinine 5.5 mg/dL (0.7-1.3) H* 11/09/16 07:20 Est GFR ( Amer) 14.0 ml/min (>90) 11/09/16 07:20 Est GFR (Non-Af Amer) 11.6 ml/min 11/09/16 07:20 BUN/Creatinine Ratio 10.4 11/09/16 07:20 Glucose 117 mg/dL (70-105) H 11/09/16 07:20 Calcium 8.5 mg/dL (8.6-10.3) L 11/09/16 07:20 Phosphorus 7.4 mg/dL (2.5-5.0) H 11/04/16 06:39 Magnesium 2.6 mg/dL (1.9-2.7) 11/04/16 06:39 Total Bilirubin 1.0 mg/dL (0.3-1.0) 11/09/16 07:20 Direct Bilirubin 0.49 mg/dL (0.0-0.2) H 11/06/16 04:45 AST 19 U/L (13-39) 11/09/16 07:20 ALT 12 U/L (7-52) 11/09/16 07:20 Alkaline Phosphatase 130 U/L (34-104) H 11/09/16 07:20 Ammonia 47 umol/L (16-53) 11/06/16 04:45 Troponin I 0.01 ng/mL (0.01-0.05) 11/03/16 20:06 B-Natriuretic Peptide 2490.0 pg/mL (5.0-100.0) H 11/09/16 07:20 Total Protein 6.1 gm/dL (6.0-8.3) 11/09/16 07:20 Albumin 3.6 gm/dL (4.2-5.5) L 11/09/16 07:20 Globulin 2.5 gm/dL 11/09/16 07:20 Albumin/Globulin Ratio 1.4 (1.0-1.8) 11/09/16 07:20 Triglycerides 80 mg/dL (<150) 11/03/16 02:29 Cholesterol 138 mg/dL (<200) 11/03/16 02:29 LDL Cholesterol Direct 60 mg/dL (75-193) L 11/03/16 02:29 HDL Cholesterol 59 mg/dL (23-92) 11/03/16 02:29 TSH 2.42 uIU/ml (0.34-5.60) 11/06/16 04:45 Hepatitis A IgM Ab Negative (Negative) 11/08/16 06:50 Hep Bs Antigen Negative (Negative) 11/08/16 06:50 Hep B Core IgM Ab Negative (Negative) 11/08/16 06:50 Hepatitis C Antibody <0.1 s/co ratio (0.0-0.9) 11/08/16 06:50 - Physical Exam Vitals and I&O: Vital Signs Temp 99.0 F 11/09/16 04:00 Pulse 85 11/09/16 07:34 Resp 20 11/09/16 07:34 BP 130/72 11/09/16 04:00 Pulse Ox 99 11/09/16 07:34 Intake & Output 11/08/16 11/09/16 11/09/16 18:59 06:59 18:59 Weight (lbs) 49.804 kg 49.442 kg Active Medications: Current Medications Acetaminophen (Tylenol) 650 mg PO Q6H PRN PRN Reason: Mild Pain/Headache/T above 101 Stop: 01/01/17 20:40 Albuterol/Ipratropium (Duoneb Neb) 3 ml HHN Q4HRT OMAYRA Stop: 01/04/17 02:59 Last Admin: 11/09/16 07:17 Dose: 3 ml Albuterol/Ipratropium (Duoneb Neb) 3 ml HHN Q2HRT PRN PRN Reason: Wheezing Stop: 01/04/17 13:41 Aspirin (Aspirin Chewable) 81 mg PO DAILY [facility] Stop: 01/05/17 08:59 Last Admin: 11/08/16 12:58 Dose: 81 mg Bisacodyl (Dulcolax 10 Mg Supp) 10 mg RC DAILY PRN PRN Reason: Constipation Stop: 01/01/17 20:48 Last Admin: 11/07/16 13:19 Dose: 10 mg Budesonide (Pulmicort) 0.5 mg HHN BIDRT OMAYRA Stop: 01/02/17 11:59 Last Admin: 11/09/16 07:17 Dose: 0.5 mg Calcitriol (Rocaltrol) 0.25 mcg PO DAILY [facility] Stop: 01/02/17 08:59 Last Admin: 11/08/16 16:57 Dose: 0.25 mcg Chlorhexidine Gluconate (Peridex) 15 ml MM 0800,2000 [facility] Stop: 01/04/17 07:59 Last Admin: 11/08/16 20:00 Dose: Not Given Famotidine (Pepcid) 20 mg PO BID [facility] Stop: 01/02/17 08:59 Last Admin: 11/08/16 17:47 Dose: 20 mg Folic Acid (Folate) 1 mg PO DAILY [facility] Stop: 01/02/17 08:59 Last Admin: 11/08/16 12:58 Dose: 1 mg Heparin Sodium (Porcine) (Heparin) 5,000 units SUBQ Q12HR [facility] Stop: 01/04/17 20:59 Last Admin: 11/08/16 21:21 Dose: 5,000 units Norepinephrine Bitartrate 4 mg (/ Dextrose) 254 mls @ 19.05 mls/hr IV PRN PRN; Protocol; 5 MCG/MIN PRN Reason: BP MAINTENANCE (PER PROTOCOL) Stop: 01/03/17 21:31 Last Admin: 11/07/16 19:10 Dose: 5 mcg/min, 19.05 mls/hr Albumin Human (Albuminar 25%) 25 gm in 100 mls @ 50 mls/hr IV X1 ONE Stop: 11/09/16 15:59 Albumin Human (Albuminar 25%) 25 gm in 100 mls @ 50 mls/hr IV X1 ONE Stop: 11/09/16 16:59 Levothyroxine Sodium (Synthroid) 0.05 mg PO DAILY [facility] Stop: 01/02/17 08:59 Last Admin: 11/08/16 12:57 Dose: 0.05 mg Lorazepam (Ativan) 0.5 mg PO Q6HR PRN; Protocol PRN Reason: Agitation Stop: 01/01/17 20:48 Last Admin: 11/06/16 20:32 Dose: 0.5 mg Metoprolol Tartrate (Lopressor) 25 mg PO BID [facility] Stop: 01/02/17 08:59 Last Admin: 11/08/16 17:46 Dose: 25 mg Miscellaneous (Clinical Monitoring) 1 ea MC DAILY PRN PRN Reason: RENAL Stop: 01/02/17 12:31 Morphine Sulfate (Morphine) 2 mg IVP Q4H PRN PRN Reason: Severe Pain Stop: 01/01/17 20:40 Last Admin: 11/07/16 03:56 Dose: 2 mg Ondansetron HCl (Zofran Odt) 4 mg PO Q6HR PRN PRN Reason: Nausea / Vomiting Stop: 01/01/17 20:48 Pantoprazole Sodium (Protonix) 40 mg IVP DAILY [facility] Stop: 01/05/17 08:59 Last Admin: 11/08/16 12:58 Dose: 40 mg Senna (Senna) 8.6 mg PO DAILY [facility] Stop: 01/02/17 08:59 Last Admin: 11/08/16 12:58 Dose: 8.6 mg Sevelamer HCl (Renagel) 800 mg PO TIDWM [facility] Stop: 01/03/17 16:59 Last Admin: 11/08/16 17:46 Dose: 800 mg Sildenafil Citrate (Revatio) 20 mg PO TID [facility] Stop: 01/04/17 13:59 Last Admin: 11/08/16 21:21 Dose: 20 mg Simvastatin (Zocor) 40 mg PO HS OMAYRA PRN Reason: Protocol Stop: 01/01/17 20:59 Last Admin: 11/08/16 21:21 Dose: 40 mg Sodium Chloride (Saline Flush) 10 ml IV QSHIFT [facility] Stop: 01/02/17 07:59 Last Admin: 11/08/16 20:00 Dose: 10 ml Vitamin B Complex/Vit C/Folic Acid (Vitamin B Complex W/Vitamin C) 1 tab PO DAILY [facility] Stop: 01/02/17 08:59 Last Admin: 11/08/16 12:57 Dose: 1 tab General: Alert, Oriented x3, Cooperative, Other HEENT: Atraumatic, Mucous membr. moist/pink Neck: Supple, JVD, Other Cardiovascular: Regular rate, Normal S1, Normal S2, Systolic murmurs Lungs: Other (Fine crackles.) Abdomen: Bowel sounds, Soft Extremities: no Edema Neurological: Normal speech, Normal tone, Sensation intact, Reflexes 2+ Skin: no Rash Psych/Mental Status: Mood NL - Procedures Procedures: Procedures Procedure Code Date INSERT EMERGENCY AIRWAY 04701 11/02/16 INSERTION OF ENDOTRACHEAL AIRWAY INTO [place]HEA, VIA OPENING [id number] 11/02/16 RESPIRATORY VENTILATION, 24-96 CONSECUTIVE HOURS [id number] 11/02/16 VENT MGMT INPAT INIT DAY 11/02/16 VENT MGMT INPAT SUBQ DAY 11/02/16 Assessment/Plan - Assessment Assessment: S/P extubation. S/P Aortic dissection repair in 2011 S/P TEVAR in 2010. Moderate to severe pulmonary hypertension. Congestive heart failure most likely due to diastolic dysfunction. End-stage renal disease on hemodialysis. Hypertension. Generalized debility. Declining self-care and mobility Anemia of chronic kidney disease Hypothyroidism. - Plan Plan: Discharge to ECF. CPOE done. MAR reconciled. Nutritional Asmnt/Malnutr-PDOC - Dietary Evaluation Malnutrition Findings (Please click <Entered> for more info): Nutritional Asmnt/Malnutrition Start: 11/07/16 14: 46 Text: Status: Complete Freq: Document 11/07/16 14:46 GSUN (Rec: 11/07/16 15:10 GSUN [id number]) Nutritional Asmnt/Malnutrition Patient General Information Nutritional Screening Moderate Risk Screening Diagnosis ESRD on HD, chest pain, asthma vs COPD, fluid overload vs CHF, HTN Pertinent Medical Hx/Surgical Hx CHD, possible aortic wall repair versus irritable surgery, depression, weakness Subjective Information 56 year old male from SNF, recieves dialysis 3x/wk. Pt is scheduled for dialysis today. 11/04: pt did not tolerate dialysis well, orally intubated at night. 11/06 dinner: pt started on ng tube feeding. Visited pt twice, pt was asleep both times, observed [employer] Renal bag hanging and off, clipboard on pt bed for written communications. Pt is overall very thin, severe fat/muscle wasting to chest and clavicles . Spoke to RN Yulia, RN reported last bolus feeding at 10am, tolerated well, no residuals, 1 BM so far, no nutritional concerns at this time. CBW 103.3lb via bedscale during visit, questionable difference with EMR weights. Current Diet Order/ Nutrition Support [employer] Renal 150ml q4hrs, providing 1800kcal, 82g protein. Pertinent Medications Dulcolax, Rocaltrol, Folate, Synthroid, Morphine, Zofran, Protonix, Senna, Renagel, Vitamin B Complex W/Vitamin C Pertinent Labs 11/04: phosphorus 7.4H, potasisum 5.3H 11/06: potassium 3.4L 11/07: BUN 59H, creatinine 6.2H Nutritional Hx/Data Height 1.6 m Height (Calculated Centimeters) 160.0 Current Weight (lbs) 50.349 kg Weight (Calculated Kilograms) 50.3 Weight (Calculated Grams) 42034.8 [place] Body Weight 124 Weight Status Approriate GI Symptoms Usual diet at home [place]: renal, finely chopped, fluid restriction 1200ml, Nephro can QD Skin Integrity/Comment: Homero Galaviz. Skin intact. Estimated Nutritional Goals Calories/Kcals/Kg IBW 124lb/56kg Kcals Calculated 1680-1960kcal (30-35kcal/kg) Protein Calculated 73-90g (1.3-1.6g/kg) Fluid: ml Per MD (dx. CHF) Nutritional Problem 1. Problem Problem Increased kcal and prot needs related to Etiology hypermetabolic state, muscle/ fat depletion aeb Signs/Symptoms: pt is near underweight and intubated on HD, severe fat/ muscle wasting to chest and clavicles Malnutrition Alert Body Fat Depletion (Severe) Mod to Severe Depletion Muscle Mass (Severe) Mod to Severe Depletion Is there a minimum of two criteria Yes selected? Query Text:Check all the applicable criteria. A minimum of two criteria are recommended for diagnosis of either severe or non-severe malnutrition. Intervention/Recommendation Comments 1. Contiue with current tube feeding order, adequate to meet nturitional needs. 2. Recommend swallow eval as needed if pt extubated and appropriate to resume oral diet. Pt's diet at SNF: renal, finely chopped, 1200ml fluid restriction, 1 can renal oral supplement. Expected Outcomes/Goals Expected Outcomes/Goals 1. Pt to meet 100% of estimated nutritional needs while on tube feeding with tolerance.
--- NOTE | 2016-11-09 10:01 | Discharge Summary ---
General Discharge Summary - Discharge Summary Date of Admission: 11/02/16 Admitting Diagnosis: Chest pain,SOB. Discharge Date: 11/09/16 Discharge Diagnosis: ACUTE RESP FAILURE,CHF,DIASTOLIC DYSFUNCTION,ESRD,S/P AORTIC DISSECT REPAIR Laboratory Findings: Laboratory Tests 11/03/16 11/03/16 11/03/16 02:29 02:29 10:30 WBC RBC Hgb Hct MCV MCH MCHC Differential RDW Plt Count MPV Neutrophils % Band Neutrophils % Lymphocytes % Monocytes % Eosinophils % Basophils % Neutrophils (Manual) Lymphocytes Monocytes Eosinophils Basophils Platelet Estimate Platelet Morphology Anisocytosis Macrocytosis Ovalocytes RBC Morph Micro Appear Specimen Source Sample Site pH pCO2 pO2 HCO3 Base Excess O2 Saturation Ismael Test Vent Rate Inspired O2 Tidal Volume PEEP Pressure (ins/psv/peep) Critical Value Sodium Potassium Chloride Carbon Dioxide Anion Gap BUN Creatinine Est GFR ( Amer) Est GFR (Non-Af Amer) BUN/Creatinine Ratio Glucose Calcium Phosphorus Magnesium 2.3 Total Bilirubin Direct Bilirubin AST ALT Alkaline Phosphatase Ammonia Troponin I 0.02 0.02 B-Natriuretic Peptide Total Protein Albumin Globulin Albumin/Globulin Ratio Triglycerides 80 Cholesterol 138 LDL Cholesterol Direct 60 L HDL Cholesterol 59 TSH Hepatitis A IgM Ab Hep Bs Antigen Hep B Core IgM Ab Hepatitis C Antibody 11/03/16 11/04/16 11/04/16 20:06 06:39 06:39 WBC 8.6 RBC 3.56 L Hgb 11.5 L Hct 37.8 L D MCV 106.0 H MCH 32.2 H MCHC Differential 30.4 RDW 17.6 Plt Count 127 L MPV 8.1 Neutrophils % Band Neutrophils % 1 Lymphocytes % Monocytes % Eosinophils % Basophils % Neutrophils (Manual) 85 H Lymphocytes 6 L Monocytes 8 Eosinophils Basophils Platelet Estimate ADEQUATE Platelet Morphology Anisocytosis 2+ Macrocytosis 2+ Ovalocytes RBC Morph Micro Appear Specimen Source Sample Site pH pCO2 pO2 HCO3 Base Excess O2 Saturation Ismael Test Vent Rate Inspired O2 Tidal Volume PEEP Pressure (ins/psv/peep) Critical Value Sodium 133 L Potassium 5.3 H Chloride 100 Carbon Dioxide 29.9 Anion Gap 8.4 BUN 52 H Creatinine 6.0 H* Est GFR ( Amer) 12.7 Est GFR (Non-Af Amer) 10.5 BUN/Creatinine Ratio 8.7 Glucose 117 H Calcium 8.3 L Phosphorus 7.4 H Magnesium 2.6 Total Bilirubin 0.6 Direct Bilirubin AST 11 L ALT 11 Alkaline Phosphatase 180 H Ammonia Troponin I 0.01 B-Natriuretic Peptide Total Protein 6.3 Albumin 3.5 L Globulin 2.8 Albumin/Globulin Ratio 1.3 Triglycerides Cholesterol LDL Cholesterol Direct HDL Cholesterol TSH Hepatitis A IgM Ab Hep Bs Antigen Hep B Core IgM Ab Hepatitis C Antibody 11/04/16 11/04/16 11/04/16 06:39 19:31 20:42 WBC RBC Hgb Hct MCV MCH MCHC Differential RDW Plt Count MPV Neutrophils % Band Neutrophils % Lymphocytes % Monocytes % Eosinophils % Basophils % Neutrophils (Manual) Lymphocytes Monocytes Eosinophils Basophils Platelet Estimate Platelet Morphology Anisocytosis Macrocytosis Ovalocytes RBC Morph Micro Appear Specimen Source Arterial Arterial Sample Site RB RB pH 6.99 L* 7.42 pCO2 139.0 H* 44.0 pO2 83.0 119.0 H HCO3 23.6 27.7 H Base Excess -1.4 3.5 H O2 Saturation 100.0 100.0 Ismael Test P P Vent Rate NA 24 Inspired O2 100 100 Tidal Volume NA 450 PEEP NA 3 Pressure (ins/psv/peep) NA NA Critical Value RPINEIRA RPINEIRA Sodium Potassium Chloride Carbon Dioxide Anion Gap BUN Creatinine Est GFR ( Amer) Est GFR (Non-Af Amer) BUN/Creatinine Ratio Glucose Calcium Phosphorus Magnesium Total Bilirubin Direct Bilirubin AST ALT Alkaline Phosphatase Ammonia Troponin I B-Natriuretic Peptide 2610.0 H Total Protein Albumin Globulin Albumin/Globulin Ratio Triglycerides Cholesterol LDL Cholesterol Direct HDL Cholesterol TSH Hepatitis A IgM Ab Hep Bs Antigen Hep B Core IgM Ab Hepatitis C Antibody 11/04/16 11/05/16 11/05/16 22:28 07:14 07:14 WBC 10.3 RBC 2.95 L Hgb 9.7 L Hct 29.6 L D MCV 100.4 H MCH 32.8 H MCHC Differential 32.6 RDW 16.4 Plt Count 114 L MPV 7.6 Neutrophils % Band Neutrophils % 4 Lymphocytes % Monocytes % Eosinophils % Basophils % Neutrophils (Manual) 86 H Lymphocytes 4 L Monocytes 6 Eosinophils Basophils Platelet Estimate ADEQUATE Platelet Morphology Anisocytosis 1+ Macrocytosis 1+ Ovalocytes 1+ RBC Morph Micro Appear Specimen Source Arterial Sample Site RB pH 7.44 pCO2 41.0 pO2 66.0 L HCO3 27.4 H Base Excess 3.3 H O2 Saturation 93.0 Ismael Test P Vent Rate 16 Inspired O2 60 Tidal Volume 450 PEEP 3 Pressure (ins/psv/peep) NA Critical Value RPINEIRA Sodium 135 L Potassium 4.4 Chloride 102 Carbon Dioxide 25.1 Anion Gap 12.3 BUN 51 H Creatinine 5.8 H* Est GFR ( Amer) 13.2 Est GFR (Non-Af Amer) 10.9 BUN/Creatinine Ratio 8.8 Glucose 91 Calcium 7.8 L Phosphorus Magnesium Total Bilirubin 1.0 Direct Bilirubin AST 10 L ALT 8 Alkaline Phosphatase 138 H Ammonia Troponin I B-Natriuretic Peptide Total Protein 4.9 L Albumin 2.7 L Globulin 2.2 Albumin/Globulin Ratio 1.2 Triglycerides Cholesterol LDL Cholesterol Direct HDL Cholesterol TSH Hepatitis A IgM Ab Hep Bs Antigen Hep B Core IgM Ab Hepatitis C Antibody 11/06/16 11/06/16 11/06/16 04:45 04:45 04:45 WBC 5.7 D RBC 2.80 L Hgb 8.9 L Hct 27.8 L MCV 99.2 H MCH 31.8 H MCHC Differential 32.1 RDW 16.7 Plt Count 122 L MPV 7.7 Neutrophils % 81.4 H Band Neutrophils % Lymphocytes % 7.8 L Monocytes % 8.8 Eosinophils % 1.6 Basophils % 0.4 Neutrophils (Manual) Lymphocytes Monocytes Eosinophils Basophils Platelet Estimate Platelet Morphology Anisocytosis Macrocytosis Ovalocytes RBC Morph Micro Appear Specimen Source Sample Site pH pCO2 pO2 HCO3 Base Excess O2 Saturation Ismael Test Vent Rate Inspired O2 Tidal Volume PEEP Pressure (ins/psv/peep) Critical Value Sodium 137 Potassium 3.4 L Chloride 104 Carbon Dioxide 25.0 Anion Gap 11.4 BUN 37 H Creatinine 4.4 H* Est GFR ( Amer) 18.1 Est GFR (Non-Af Amer) 15.0 BUN/Creatinine Ratio 8.4 Glucose 79 Calcium 8.4 L Phosphorus Magnesium Total Bilirubin 1.5 H Direct Bilirubin 0.49 H AST 12 L ALT 6 L Alkaline Phosphatase 117 H Ammonia 47 Troponin I B-Natriuretic Peptide Total Protein 5.1 L Albumin 3.1 L Globulin 2.0 Albumin/Globulin Ratio 1.6 Triglycerides Cholesterol LDL Cholesterol Direct HDL Cholesterol TSH 2.42 Hepatitis A IgM Ab Hep Bs Antigen Hep B Core IgM Ab Hepatitis C Antibody 11/06/16 11/07/16 11/07/16 09:00 04:45 04:45 WBC 6.8 RBC 2.74 L Hgb 8.8 L Hct 27.5 L MCV 100.1 H MCH 32.1 H MCHC Differential 32.1 RDW 16.4 Plt Count 110 L MPV 7.4 Neutrophils % Band Neutrophils % 1 Lymphocytes % Monocytes % Eosinophils % Basophils % Neutrophils (Manual) 84 H Lymphocytes 4 L Monocytes 10 Eosinophils 1 Basophils Platelet Estimate ADEQUATE Platelet Morphology Anisocytosis 1+ Macrocytosis Ovalocytes RBC Morph Micro Appear ABNORMAL Specimen Source Arterial Sample Site Right Radial pH 7.50 H pCO2 33.0 L pO2 90.0 HCO3 27.1 H Base Excess 2.8 O2 Saturation 98.0 Ismael Test YES Vent Rate 12 Inspired O2 60 Tidal Volume 450 PEEP +3 Pressure (ins/psv/peep) NA Critical Value SH Sodium 134 L Potassium 4.4 Chloride 101 Carbon Dioxide 24.8 Anion Gap 12.6 BUN 59 H Creatinine 6.2 H* Est GFR ( Amer) 12.2 Est GFR (Non-Af Amer) 10.1 BUN/Creatinine Ratio 9.5 Glucose 85 Calcium 8.1 L Phosphorus Magnesium Total Bilirubin 1.2 H Direct Bilirubin AST 17 ALT 8 Alkaline Phosphatase 123 H Ammonia Troponin I B-Natriuretic Peptide Total Protein 5.5 L Albumin 3.0 L Globulin 2.5 Albumin/Globulin Ratio 1.2 Triglycerides Cholesterol LDL Cholesterol Direct HDL Cholesterol TSH Hepatitis A IgM Ab Hep Bs Antigen Hep B Core IgM Ab Hepatitis C Antibody 11/07/16 11/07/16 11/08/16 04:45 10:02 06:50 WBC 6.7 RBC 2.70 L Hgb 8.6 L Hct 27.0 L MCV 100.0 H MCH 31.9 H MCHC Differential 31.9 RDW 16.6 Plt Count 103 L MPV 7.0 Neutrophils % Band Neutrophils % 5 Lymphocytes % Monocytes % Eosinophils % Basophils % Neutrophils (Manual) 81 H Lymphocytes 4 L Monocytes 9 Eosinophils 1 Basophils Platelet Estimate DECREASED [place] Platelet Morphology NORMAL Anisocytosis 1+ Macrocytosis Ovalocytes RBC Morph Micro Appear ABNORMAL Specimen Source Arterial Sample Site Right Radial pH 7.35 pCO2 49.0 H pO2 124.0 H HCO3 25.6 Base Excess 0.8 O2 Saturation 99.0 Ismael Test PASS Vent Rate 8 Inspired O2 45 Tidal Volume 450 PEEP 3 Pressure (ins/psv/peep) 15 Critical Value PW Sodium Potassium Chloride Carbon Dioxide Anion Gap BUN Creatinine Est GFR ( Amer) Est GFR (Non-Af Amer) BUN/Creatinine Ratio Glucose Calcium Phosphorus Magnesium Total Bilirubin Direct Bilirubin AST ALT Alkaline Phosphatase Ammonia Troponin I B-Natriuretic Peptide 1020.0 H Total Protein Albumin Globulin Albumin/Globulin Ratio Triglycerides Cholesterol LDL Cholesterol Direct HDL Cholesterol TSH Hepatitis A IgM Ab Hep Bs Antigen Hep B Core IgM Ab Hepatitis C Antibody 11/08/16 11/08/16 11/09/16 06:50 09:50 07:20 WBC 5.5 RBC 2.86 L Hgb 9.4 L Hct 28.6 L MCV 100.1 H MCH 32.8 H MCHC Differential 32.8 RDW 16.5 Plt Count 102 L MPV 7.8 Neutrophils % Band Neutrophils % 2 Lymphocytes % Monocytes % Eosinophils % Basophils % Neutrophils (Manual) 74 Lymphocytes 10 L Monocytes 8 Eosinophils 3 Basophils 3 Platelet Estimate DECREASED [place] Platelet Morphology NORMAL Anisocytosis 1+ Macrocytosis Ovalocytes RBC Morph Micro Appear ABNORMAL Specimen Source Arterial Sample Site Right Radial pH 7.43 pCO2 47.0 H pO2 68.0 L HCO3 29.5 H Base Excess 5.9 H O2 Saturation 94.0 Ismael Test YES Vent Rate NA Inspired O2 36 Tidal Volume NA PEEP NA Pressure (ins/psv/peep) NA Critical Value E.MCMILLAN Sodium Potassium Chloride Carbon Dioxide Anion Gap BUN Creatinine Est GFR ( Amer) Est GFR (Non-Af Amer) BUN/Creatinine Ratio Glucose Calcium Phosphorus Magnesium Total Bilirubin Direct Bilirubin AST ALT Alkaline Phosphatase Ammonia Troponin I B-Natriuretic Peptide Total Protein Albumin Globulin Albumin/Globulin Ratio Triglycerides Cholesterol LDL Cholesterol Direct HDL Cholesterol TSH Hepatitis A IgM Ab Negative Hep Bs Antigen Negative Hep B Core IgM Ab Negative Hepatitis C Antibody <0.1 11/09/16 11/09/16 07:20 07:20 WBC RBC Hgb Hct MCV MCH MCHC Differential RDW Plt Count MPV Neutrophils % Band Neutrophils % Lymphocytes % Monocytes % Eosinophils % Basophils % Neutrophils (Manual) Lymphocytes Monocytes Eosinophils Basophils Platelet Estimate Platelet Morphology Anisocytosis Macrocytosis Ovalocytes RBC Morph Micro Appear Specimen Source Sample Site pH pCO2 pO2 HCO3 Base Excess O2 Saturation Ismael Test Vent Rate Inspired O2 Tidal Volume PEEP Pressure (ins/psv/peep) Critical Value Sodium 135 L Potassium 4.6 Chloride 101 Carbon Dioxide 25.8 Anion Gap 12.8 BUN 57 H Creatinine 5.5 H* Est GFR ( Amer) 14.0 Est GFR (Non-Af Amer) 11.6 BUN/Creatinine Ratio 10.4 Glucose 117 H Calcium 8.5 L Phosphorus Magnesium Total Bilirubin 1.0 Direct Bilirubin AST 19 ALT 12 Alkaline Phosphatase 130 H Ammonia Troponin I B-Natriuretic Peptide 2490.0 H Total Protein 6.1 Albumin 3.6 L Globulin 2.5 Albumin/Globulin Ratio 1.4 Triglycerides Cholesterol LDL Cholesterol Direct HDL Cholesterol TSH Hepatitis A IgM Ab Hep Bs Antigen Hep B Core IgM Ab Hepatitis C Antibody Hospital Course: 56-year-old [place] male presented to the emergency room by 911 for evaluation of chest pain and shortness of breath. Patient was evaluated in emergency room and subsequently admitted to the hospital for further treatment. Patient was admitted to telemetry unit. Patient was seen by short goods drier and funeral workers. Patient did have a altered mental status due to hypoxia. Patient did have evidence of respiratory distress during dialysis which required endotracheal intubation and mechanical ventilation. Patient was seen by party supply specialist and ventilator managed by him. Patient was noted to have a aortic valve and aortic dissection repair history which was confirmed by reviewing the records from [facility]. 2-D echocardiogram performed here revealed moderate to severe pulmonary hypertension. Patient did have evidence of diastolic dysfunction. After extubation patient was transferred to telemetry unit. Patient was placed on clear liquid diet which was advanced as tolerated. Patient's remain asymptomatic with his current medications so decided patient can be discharged back to halfway. Sildenafil was added for pulmonary hypertension. Patient will be receiving dialysis 3 times a week by Dr. Laura as an outpatient. Patient will be seen by his primary care M.D. for follow-up of his ongoing medical problems. Condition at Discharge: Stable Disposition: [facility] Home Medications: Home Medication Medication Instructions Recorded Type Acetaminophen [Tylenol] 2 tab PO Q6HR PRN 11/02/16 History Albuterol/Ipratropium Neb [Duoneb 3 ml HHN Q2HR PRN 11/02/16 History Neb] Albuterol/Ipratropium Neb [Duoneb 3 ml HHN Q4HR 11/02/16 History Neb] Amlodipine Besylate 5 mg PO DAILY 11/02/16 History Bisacodyl [Dulcolax 10 Mg Supp] 10 mg RC DAILY PRN 11/02/16 History Calcitriol [Rocaltrol] 0.25 mcg PO DAILY 11/02/16 History Calcium Acetate [Phoslo] 667 mg PO DAILY 11/02/16 History Clonidine HCl [Catapres] 0.1 mg PO Q6HR PRN 11/02/16 History Famotidine [Pepcid] 20 mg PO BID 11/02/16 History Fluticasone/Salmeterol [Advair 1 puff INH BID PRN 11/02/16 History 250-50 Diskus] Folic Acid [Folate] 1 mg PO DAILY 11/02/16 History Folic Acid/Vit Bcomp,C 0.8 mg PO DAILY 11/02/16 History [Nephro-[place] Tablet] Hydrocodone/Acetaminophen [[place] 1 each PO Q6HR PRN 11/02/16 History 325 mg-5 mg*] Ipratropium/Albuterol Sulfate 3 ml IH DAILY 11/02/16 History [Iprat-Albut 0.5-3(2.5) mg/3 ml] Levothyroxine [Synthroid] 50 mcg PO DAILY 11/02/16 History Lorazepam [Ativan] 0.5 mg PO Q6HR PRN 11/02/16 History Magnesium Hydroxide [Milk of 30 ml PO DAILY PRN 11/02/16 History Magnesia] Metoprolol Tartrate 25 mg PO DAILY 11/02/16 History Na Phos,M-B/Na Phos,Di-Ba [Enema 7 133 ml RC Q8HR PRN 11/02/16 History gm/118 ml-19 gm/118 ml 133 ml] Ondansetron [Zofran ODT] 4 mg PO Q6HR PRN 11/02/16 History Sennosides A and B [Senna] 8.6 mg PO DAILY 11/02/16 History Inpatient Medications: Current Medications Acetaminophen (Tylenol) 650 mg PO Q6H PRN PRN Reason: Mild Pain/Headache/T above 101 Stop: 01/01/17 20:40 Albuterol/Ipratropium (Duoneb Neb) 3 ml HHN Q4HRT [facility] Stop: 01/04/17 02:59 Last Admin: 11/09/16 07:17 Dose: 3 ml Albuterol/Ipratropium (Duoneb Neb) 3 ml HHN Q2HRT PRN PRN Reason: Wheezing Stop: 01/04/17 13:41 Aspirin (Aspirin Chewable) 81 mg PO DAILY [facility] Stop: 01/05/17 08:59 Last Admin: 11/08/16 12:58 Dose: 81 mg Bisacodyl (Dulcolax 10 Mg Supp) 10 mg RC DAILY PRN PRN Reason: Constipation Stop: 01/01/17 20:48 Last Admin: 11/07/16 13:19 Dose: 10 mg Budesonide (Pulmicort) 0.5 mg HHN BIDRT [facility] Stop: 01/02/17 11:59 Last Admin: 11/09/16 07:17 Dose: 0.5 mg Calcitriol (Rocaltrol) 0.25 mcg PO DAILY [facility] Stop: 01/02/17 08:59 Last Admin: 11/08/16 16:57 Dose: 0.25 mcg Chlorhexidine Gluconate (Peridex) 15 ml MM 0800,1999 [facility] Stop: 01/04/17 07:59 Last Admin: 11/08/16 20:00 Dose: Not Given Famotidine (Pepcid) 20 mg PO BID [facility] Stop: 01/02/17 08:59 Last Admin: 11/08/16 17:47 Dose: 20 mg Folic Acid (Folate) 1 mg PO DAILY [facility] Stop: 01/02/17 08:59 Last Admin: 11/08/16 12:58 Dose: 1 mg Heparin Sodium (Porcine) (Heparin) 5,000 units SUBQ Q12HR [facility] Stop: 01/04/17 20:59 Last Admin: 11/08/16 21:21 Dose: 5,000 units Norepinephrine Bitartrate 4 mg (/ Dextrose) 254 mls @ 19.05 mls/hr IV PRN PRN; Protocol; 5 MCG/MIN PRN Reason: BP MAINTENANCE (PER PROTOCOL) Stop: 01/03/17 21:31 Last Admin: 11/07/16 19:10 Dose: 5 mcg/min, 19.05 mls/hr Albumin Human (Albuminar 25%) 25 gm in 100 mls @ 50 mls/hr IV X1 ONE Stop: 11/09/16 15:59 Albumin Human (Albuminar 25%) 25 gm in 100 mls @ 50 mls/hr IV X1 ONE Stop: 11/09/16 16:59 Levothyroxine Sodium (Synthroid) 0.05 mg PO DAILY [facility] Stop: 01/02/17 08:59 Last Admin: 11/08/16 12:57 Dose: 0.05 mg Lorazepam (Ativan) 0.5 mg PO Q6HR PRN; Protocol PRN Reason: Agitation Stop: 01/01/17 20:48 Last Admin: 11/06/16 20:32 Dose: 0.5 mg Metoprolol Tartrate (Lopressor) 25 mg PO BID [facility] Stop: 01/02/17 08:59 Last Admin: 11/08/16 17:46 Dose: 25 mg Miscellaneous (Clinical Monitoring) 1 ea MC DAILY PRN PRN Reason: RENAL Stop: 01/02/17 12:31 Morphine Sulfate (Morphine) 2 mg IVP Q4H PRN PRN Reason: Severe Pain Stop: 01/01/17 20:40 Last Admin: 11/07/16 03:56 Dose: 2 mg Ondansetron HCl (Zofran Odt) 4 mg PO Q6HR PRN PRN Reason: Nausea / Vomiting Stop: 01/01/17 20:48 Pantoprazole Sodium (Protonix) 40 mg IVP DAILY [facility] Stop: 01/05/17 08:59 Last Admin: 11/08/16 12:58 Dose: 40 mg Senna (Senna) 8.6 mg PO DAILY [facility] Stop: 01/02/17 08:59 Last Admin: 11/08/16 12:58 Dose: 8.6 mg Sevelamer HCl (Renagel) 800 mg PO TIDWM [facility] Stop: 01/03/17 16:59 Last Admin: 11/08/16 17:46 Dose: 800 mg Sildenafil Citrate (Revatio) 20 mg PO TID [facility] Stop: 01/04/17 13:59 Last Admin: 11/08/16 21:21 Dose: 20 mg Simvastatin (Zocor) 40 mg PO HS [facility] PRN Reason: Protocol Stop: 01/01/17 20:59 Last Admin: 11/08/16 21:21 Dose: 40 mg Sodium Chloride (Saline Flush) 10 ml IV QSHIFT [facility] Stop: 01/02/17 07:59 Last Admin: 11/08/16 20:00 Dose: 10 ml Vitamin B Complex/Vit C/Folic Acid (Vitamin B Complex W/Vitamin C) 1 tab PO DAILY [facility] Stop: 01/02/17 08:59 Last Admin: 11/08/16 12:57 Dose: 1 tab Consults and Follow-Up: JAQUELIN MACKENZIE [Other] not on staff,PCP is [Primary Care Provider] -
[2016-11-09 12:22] LABS: pH 7.32 (7.35-7.45)
[2016-11-09 12:23] LABS: BE(B) 5.1 mEq/L (-3.0-3.0); HCO3 28.4 mEq/L (20.0-26.0)
[2016-11-09 12:24] LABS: ABG SOURCE Venous; ALLEN TEST YES; FIO2 36
[2016-11-09] MEDS: Vitamin B Complex w/Vitamin C Tab PO SCH (12:29)
[2016-11-09] MEDS: Chlorhexidine Gluconate 0.12% 15mL Mouthwash MM SCH ×2 (12:30→20:37)
[2016-11-09] MEDS: Aspirin 81mg Chewable Tab PO SCH (12:30)
[2016-11-09] MEDS: Levothyroxine 0.05 Mg Tab PO SCH (12:30)
--- NOTE | 2016-11-09 12:45 | Diagnostic Imaging Report ---
CHEST X-RAY: 2 views INDICATION: Shortness of breath, right lower lobe pneumonia COMPARISON: Chest x-ray 11/08/2016 FINDINGS: Extensive postsurgical changes are seen including evidence of prior median sternotomy and endovascular aortic stent placement. There is also an additional stent which may be in the region of the left brachiocephalic vein. Congestive changes are seen with right pleural effusion and right lung infiltrates. Small left effusion is also suspected. Cardiomegaly is noted. Degenerative changes of the spine are noted. Diffuse postsurgical changes of the upper thorax are also noted. Right PICC line is stable. IMPRESSION: Extensive postsurgical changes as above Congestive changes with right pleural effusion and right lung infiltrates. There is also an additional likely small left effusion. Cardiomegaly.
[2016-11-09] MEDS ORDERED: Albumin 25% 25gm/100mL 25 GM/100 ML BTL IV ONE ×4 (14:00→15:00)
--- NOTE | 2016-11-09 14:17 | General Progress Note ---
Subjective - Review of Systems Service Date: 11/09/16 Subjective: more awake, verbal, eating lunch, eager to go home Objective - Results Result Diagrams: 11/09/16 07:20 11/09/16 07:20 Recent Labs: Laboratory Last Values WBC 5.5 Th/cmm (4.8-10.8) 11/09/16 07:20 RBC 2.86 Mil/cmm (4.30-5.70) L 11/09/16 07:20 Hgb 9.4 gm/dL (13.2-17.3) L 11/09/16 07:20 Hct 28.6 % (39.0-49.0) L 11/09/16 07:20 MCV 100.1 fl (80-99) H 11/09/16 07:20 MCH 32.8 pg (26.0-30.0) H 11/09/16 07:20 MCHC Differential 32.8 pg (28.0-36.0) 11/09/16 07:20 RDW 16.5 % (11.5-20.0) 11/09/16 07:20 Plt Count 102 Th/cmm (150-400) L 11/09/16 07:20 MPV 7.8 fl 11/09/16 07:20 Neutrophils % 81.4 % (40.0-80.0) H 11/06/16 04:45 Band Neutrophils % 2 % (0-10) 11/09/16 07:20 Lymphocytes % 7.8 % (20.0-50.0) L 11/06/16 04:45 Monocytes % 8.8 % (2.0-10.0) 11/06/16 04:45 Eosinophils % 1.6 % (0.0-5.0) 11/06/16 04:45 Basophils % 0.4 % (0.0-2.0) 11/06/16 04:45 Neutrophils (Manual) 74 % (40-80) 11/09/16 07:20 Lymphocytes 10 % (20-50) L 11/09/16 07:20 Monocytes 8 % (2-10) 11/09/16 07:20 Eosinophils 3 % (0-5) 11/09/16 07:20 Basophils 3 % (0-3) 11/09/16 07:20 Platelet Estimate DECREASED PLATELETS (NORMAL) 11/09/16 07:20 Platelet Morphology NORMAL (NORMAL) 11/09/16 07:20 Anisocytosis 1+ 11/09/16 07:20 Macrocytosis 1+ 11/05/16 07:14 Ovalocytes 1+ 11/05/16 07:14 RBC Morph Micro Appear ABNORMAL (NORMAL) 11/09/16 07:20 Specimen Source Venous 11/09/16 11:55 Sample Site Right Radial 11/09/16 11:55 pH 7.32 (7.35-7.45) L 11/09/16 11:55 pCO2 64.0 mmHg (35.0-45.0) H* 11/09/16 11:55 pO2 46.0 mmHg (80.0-100.0) L* 11/09/16 11:55 HCO3 28.4 mEq/L (20.0-26.0) H 11/09/16 11:55 Base Excess 5.1 mEq/L (-3.0-3.0) H 11/09/16 11:55 O2 Saturation 78.0 % (92.0-100.0) L 11/09/16 11:55 Ismael Test YES 11/09/16 11:55 Vent Rate NA 11/09/16 11:55 Inspired O2 36 11/09/16 11:55 Tidal Volume NA 11/09/16 11:55 PEEP NA 11/09/16 11:55 Pressure (ins/psv/peep) NA 11/09/16 11:55 Critical Value E.MCMILLAN 11/09/16 11:55 Sodium 135 mEq/L (136-145) L 11/09/16 07:20 Potassium 4.6 mEq/L (3.5-5.1) 11/09/16 07:20 Chloride 101 mEq/L (98-107) 11/09/16 07:20 Carbon Dioxide 25.8 mEq/L (21.0-31.0) 11/09/16 07:20 Anion Gap 12.8 (7.0-16.0) 11/09/16 07:20 BUN 57 mg/dL (7-25) H 11/09/16 07:20 Creatinine 5.5 mg/dL (0.7-1.3) H* 11/09/16 07:20 Est GFR ( Amer) 14.0 ml/min (>90) 11/09/16 07:20 Est GFR (Non-Af Amer) 11.6 ml/min 11/09/16 07:20 BUN/Creatinine Ratio 10.4 11/09/16 07:20 Glucose 117 mg/dL (70-105) H 11/09/16 07:20 Calcium 8.5 mg/dL (8.6-10.3) L 11/09/16 07:20 Phosphorus 7.4 mg/dL (2.5-5.0) H 11/04/16 06:39 Magnesium 2.6 mg/dL (1.9-2.7) 11/04/16 06:39 Total Bilirubin 1.0 mg/dL (0.3-1.0) 11/09/16 07:20 Direct Bilirubin 0.49 mg/dL (0.0-0.2) H 11/06/16 04:45 AST 19 U/L (13-39) 11/09/16 07:20 ALT 12 U/L (7-52) 11/09/16 07:20 Alkaline Phosphatase 130 U/L (34-104) H 11/09/16 07:20 Ammonia 47 umol/L (16-53) 11/06/16 04:45 Troponin I 0.01 ng/mL (0.01-0.05) 11/03/16 20:06 B-Natriuretic Peptide 2490.0 pg/mL (5.0-100.0) H 11/09/16 07:20 Total Protein 6.1 gm/dL (6.0-8.3) 11/09/16 07:20 Albumin 3.6 gm/dL (4.2-5.5) L 11/09/16 07:20 Globulin 2.5 gm/dL 11/09/16 07:20 Albumin/Globulin Ratio 1.4 (1.0-1.8) 11/09/16 07:20 Triglycerides 80 mg/dL (<150) 11/03/16 02:29 Cholesterol 138 mg/dL (<200) 11/03/16 02:29 LDL Cholesterol Direct 60 mg/dL (75-193) L 11/03/16 02:29 HDL Cholesterol 59 mg/dL (23-92) 11/03/16 02:29 TSH 2.42 uIU/ml (0.34-5.60) 11/06/16 04:45 Hepatitis A IgM Ab Negative (Negative) 11/08/16 06:50 Hep Bs Antigen Negative (Negative) 11/08/16 06:50 Hep B Core IgM Ab Negative (Negative) 11/08/16 06:50 Hepatitis C Antibody <0.1 s/co ratio (0.0-0.9) 11/08/16 06:50 - Physical Exam Vitals and I&O: Vital Signs Temp 99.0 F 11/09/16 04:00 Pulse 85 11/09/16 07:34 Resp 20 11/09/16 08:00 BP 130/72 11/09/16 04:00 Pulse Ox 99 11/09/16 07:34 Intake & Output 11/08/16 11/09/16 11/09/16 18:59 06:59 18:59 Intake Total 40 Output Total 3100 Balance -3060 Weight (lbs) 49.804 kg 49.442 kg 48.988 kg Intake: Oral 40 Output: Hemodialysis 3100 Active Medications: Current Medications Acetaminophen (Tylenol) 650 mg PO Q6H PRN PRN Reason: Mild Pain/Headache/T above 101 Stop: 01/01/17 20:40 Albuterol/Ipratropium (Duoneb Neb) 3 ml HHN Q4HRT [facility] Stop: 01/04/17 02:59 Last Admin: 11/09/16 12:24 Dose: Not Given Albuterol/Ipratropium (Duoneb Neb) 3 ml HHN Q2HRT PRN PRN Reason: Wheezing Stop: 01/04/17 13:41 Aspirin (Aspirin Chewable) 81 mg PO DAILY [facility] Stop: 01/05/17 08:59 Last Admin: 11/09/16 12:30 Dose: Not Given Bisacodyl (Dulcolax 10 Mg Supp) 10 mg RC DAILY PRN PRN Reason: Constipation Stop: 01/01/17 20:48 Last Admin: 11/07/16 13:19 Dose: 10 mg Budesonide (Pulmicort) 0.5 mg HHN BIDRT [facility] Stop: 01/02/17 11:59 Last Admin: 11/09/16 07:17 Dose: 0.5 mg Calcitriol (Rocaltrol) 0.25 mcg PO DAILY [facility] Stop: 01/02/17 08:59 Last Admin: 11/09/16 12:30 Dose: Not Given Chlorhexidine Gluconate (Peridex) 15 ml MM 0800,1999 [facility] Stop: 01/04/17 07:59 Last Admin: 11/09/16 12:30 Dose: Not Given Famotidine (Pepcid) 20 mg PO BID [facility] Stop: 01/02/17 08:59 Last Admin: 11/09/16 12:29 Dose: Not Given Folic Acid (Folate) 1 mg PO DAILY [facility] Stop: 01/02/17 08:59 Last Admin: 11/09/16 12:29 Dose: Not Given Heparin Sodium (Porcine) (Heparin) 5,000 units SUBQ Q12HR [facility] Stop: 01/04/17 20:59 Last Admin: 11/09/16 12:29 Dose: Not Given Norepinephrine Bitartrate 4 mg (/ Dextrose) 254 mls @ 19.05 mls/hr IV PRN PRN; Protocol; 5 MCG/MIN PRN Reason: BP MAINTENANCE (PER PROTOCOL) Stop: 01/03/17 21:31 Last Admin: 11/07/16 19:10 Dose: 5 mcg/min, 19.05 mls/hr Albumin Human (Albuminar 25%) 25 gm in 100 mls @ 50 mls/hr IV X1 ONE Stop: 11/09/16 15:59 Albumin Human (Albuminar 25%) 25 gm in 100 mls @ 50 mls/hr IV X1 ONE Stop: 11/09/16 16:59 Levothyroxine Sodium (Synthroid) 0.05 mg PO DAILY [facility] Stop: 01/02/17 08:59 Last Admin: 11/09/16 12:30 Dose: Not Given Lorazepam (Ativan) 0.5 mg PO Q6HR PRN; Protocol PRN Reason: Agitation Stop: 01/01/17 20:48 Last Admin: 11/06/16 20:32 Dose: 0.5 mg Metoprolol Tartrate (Lopressor) 25 mg PO BID [facility] Stop: 01/02/17 08:59 Last Admin: 11/09/16 12:28 Dose: Not Given Miscellaneous (Clinical Monitoring) 1 ea MC DAILY PRN PRN Reason: RENAL Stop: 01/02/17 12:31 Morphine Sulfate (Morphine) 2 mg IVP Q4H PRN PRN Reason: Severe Pain Stop: 01/01/17 20:40 Last Admin: 11/07/16 03:56 Dose: 2 mg Ondansetron HCl (Zofran Odt) 4 mg PO Q6HR PRN PRN Reason: Nausea / Vomiting Stop: 01/01/17 20:48 Pantoprazole Sodium (Protonix) 40 mg IVP DAILY [facility] Stop: 01/05/17 08:59 Last Admin: 11/09/16 12:28 Dose: Not Given Senna (Senna) 8.6 mg PO DAILY [facility] Stop: 01/02/17 08:59 Last Admin: 11/09/16 12:28 Dose: Not Given Sevelamer HCl (Renagel) 800 mg PO TIDWM [facility] Stop: 01/03/17 16:59 Last Admin: 11/09/16 12:15 Dose: Not Given Sildenafil Citrate (Revatio) 20 mg PO TID [facility] Stop: 01/04/17 13:59 Last Admin: 11/09/16 12:30 Dose: Not Given Simvastatin (Zocor) 40 mg PO HS [facility] PRN Reason: Protocol Stop: 01/01/17 20:59 Last Admin: 11/08/16 21:21 Dose: 40 mg Sodium Chloride (Saline Flush) 10 ml IV QSHIFT [facility] Stop: 01/02/17 07:59 Last Admin: 11/09/16 12:30 Dose: Not Given Vitamin B Complex/Vit C/Folic Acid (Vitamin B Complex W/Vitamin C) 1 tab PO DAILY [facility] Stop: 01/02/17 08:59 Last Admin: 11/09/16 12:29 Dose: Not Given General: Alert, Oriented x3, Cooperative, Other HEENT: Atraumatic, Mucous membr. moist/pink Neck: Supple, JVD, Other Cardiovascular: Regular rate, Normal S1, Normal S2, Systolic murmurs Lungs: Other (Fine crackles.) Abdomen: Bowel sounds, Soft Extremities: no Edema Neurological: Normal speech, Normal tone, Sensation intact, Reflexes 2+ Skin: no Rash Psych/Mental Status: Mood NL - Procedures Procedures: Procedures Procedure Code Date INSERT EMERGENCY AIRWAY 08484 11/02/16 INSERTION OF ENDOTRACHEAL AIRWAY INTO [place], VIA OPENING [id number] 11/02/16 RESPIRATORY VENTILATION, 24-96 CONSECUTIVE HOURS [id number] 11/02/16 VENT MGMT INPAT IN DAY 75691 11/02/16 VENT MGMT INPAT SUBQ DAY 51318 11/02/16 Assessment/Plan - Assessment Assessment: ESRD on hemodialysis Essential hypertension Anemia of chronic kidney disease GERD Acute coronary syndrome secondary to unstable angina Respiratory distress secondary to fluid overload, possible acute on chronic CHF Hypothyroidism Anxiety disorder Status post respiratory arrest off ventilator Severe pulmonary hypertension - Plan Plan: Lab - Result Diagrams 11/04/16 06:39 11/04/16 06:39 Current Medications Acetaminophen (Tylenol) 650 mg PO Q6H PRN PRN Reason: Mild Pain/Headache/T above 101 Stop: 01/01/17 20:40 Albuterol/Ipratropium (Duoneb Neb) 3 ml HHN Q6HRT [facility] Stop: 01/02/17 00:59 Last Admin: 11/04/16 07:43 Dose: 3 ml Aspirin (Ecotrin) 81 mg PO DAILY [facility] Stop: 01/02/17 08:59 Last Admin: 11/04/16 09:48 Dose: 81 mg Bisacodyl (Dulcolax 10 Mg Supp) 10 mg RC DAILY PRN PRN Reason: Constipation Stop: 01/01/17 20:48 Budesonide (Pulmicort) 0.5 mg HHN BIDRT [facility] Stop: 01/02/17 11:59 Last Admin: 11/04/16 07:43 Dose: 0.5 mg Calcitriol (Rocaltrol) 0.25 mcg PO DAILY [facility] Stop: 01/02/17 08:59 Last Admin: 11/04/16 09:48 Dose: 0.25 mcg Calcium Acetate (Phoslo) 667 mg PO DAILY [facility] Stop: 01/02/17 08:59 Last Admin: 11/04/16 09:48 Dose: 667 mg Famotidine (Pepcid) 20 mg PO BID [facility] Stop: 01/02/17 08:59 Last Admin: 11/04/16 09:48 Dose: 20 mg Folic Acid (Folate) 1 mg PO DAILY [facility] Stop: 01/02/17 08:59 Last Admin: 11/04/16 09:48 Dose: 1 mg Levothyroxine Sodium (Synthroid) 0.05 mg PO DAILY [facility] Stop: 01/02/17 08:59 Last Admin: 11/04/16 09:48 Dose: 0.05 mg Lorazepam (Ativan) 0.5 mg PO Q6HR PRN; Protocol PRN Reason: Agitation Stop: 01/01/17 20:48 Last Admin: 11/03/16 16:31 Dose: 0.5 mg Metoprolol Tartrate (Lopressor) 25 mg PO BID [facility] Stop: 01/02/17 08:59 Last Admin: 11/04/16 09:49 Dose: Not Given Miscellaneous (Clinical Monitoring) 1 ea MC DAILY PRN PRN Reason: RENAL Stop: 01/02/17 12:31 Morphine Sulfate (Morphine) 2 mg IVP Q4H PRN PRN Reason: Severe Pain Stop: 01/01/17 20:40 Nitroglycerin (Nitro-Bid) 1 inch TP Q6HR [facility] Stop: 01/02/17 00:00 Last Admin: 11/04/16 06:48 Dose: Not Given Ondansetron HCl (Zofran Odt) 4 mg PO Q6HR PRN PRN Reason: Nausea / Vomiting Stop: 01/01/17 20:48 Senna (Senna) 8.6 mg PO DAILY [facility] Stop: 01/02/17 08:59 Last Admin: 11/04/16 09:48 Dose: 8.6 mg Simvastatin (Zocor) 40 mg PO HS [facility] PRN Reason: Protocol Stop: 01/01/17 20:59 Last Admin: 11/03/16 22:35 Dose: Not Given Sodium Chloride (Saline Flush) 10 ml IV QSHIFT [facility] Stop: 01/02/17 07:59 Last Admin: 11/04/16 09:55 Dose: 10 ml Vitamin B Complex/Vit C/Folic Acid (Vitamin B Complex W/Vitamin C) 1 tab PO DAILY [facility] Stop: 01/02/17 08:59 Last Admin: 11/04/16 09:48 Dose: 1 tab successfully extubated Fluid restriction Daily weights Serial chest x-ray Dialyzed today & tolerated it well Echo revealed ejection fraction 55% but RVSP of 62.3 mmHg agree w/ dc to snf Nutritional Asmnt/Malnutr-PDOC - Dietary Evaluation Malnutrition Findings (Please click <Entered> for more info): Nutritional Asmnt/Malnutrition Start: 11/07/16 14: 46 Text: Status: Complete Freq: Document 11/07/16 14:46 GSUN (Rec: 11/07/16 15:10 GSUN [id number]) Nutritional Asmnt/Malnutrition Patient General Information Nutritional Screening Moderate Risk Screening Diagnosis ESRD on HD, chest pain, asthma vs COPD, fluid overload vs CHF, HTN Pertinent Medical Hx/Surgical Hx CHD, possible aortic wall repair versus irritable surgery, depression, weakness Subjective Information 56 year old male from SNF, recieves dialysis 3x/wk. Pt is scheduled for dialysis today. 11/04: pt did not tolerate dialysis well, orally intubated at night. 11/06 dinner: pt started on ng tube feeding. Visited pt twice, pt was asleep both times, observed [employer] Renal bag hanging and off, clipboard on pt bed for written communications. Pt is overall very thin, severe fat/muscle wasting to chest and clavicles . Spoke to CATRACHITO Bender, RN reported last bolus feeding at 10am, tolerated well, no residuals, 1 BM so far, no nutritional concerns at this time. CBW 103.3lb via bedscale during visit, questionable difference with EMR weights. Current Diet Order/ Nutrition Support [employer] Renal 150ml q4hrs, providing 1800kcal, 82g protein. Pertinent Medications Dulcolax, Rocaltrol, Folate, Synthroid, Morphine, Zofran, Protonix, Senna, Renagel, Vitamin B Complex W/Vitamin C Pertinent Labs 11/04: phosphorus 7.4H, potasisum 5.3H 11/06: potassium 3.4L 11/07: BUN 59H, creatinine 6.2H Nutritional Hx/Data Height 1.6 m Height (Calculated Centimeters) 160.0 Current Weight (lbs) 50.349 kg Weight (Calculated Kilograms) 50.3 Weight (Calculated Grams) 15744.8 [place] Body Weight 124 Weight Status Approriate GI Symptoms Usual diet at home Dolly [place]: renal, finely chopped, fluid restriction 1200ml, Nephro can QD Skin Integrity/Comment: Homero 17. Skin intact. Estimated Nutritional Goals Calories/Kcals/Kg IBW 124lb/56kg Kcals Calculated 1680-1960kcal (30-35kcal/kg) Protein Calculated 73-90g (1.3-1.6g/kg) Fluid: ml Per MD (dx. CHF) Nutritional Problem 1. Problem Problem Increased kcal and prot needs related to Etiology hypermetabolic state, muscle/ fat depletion aeb Signs/Symptoms: pt is near underweight and intubated on HD, severe fat/ muscle wasting to chest and clavicles Malnutrition Alert Body Fat Depletion (Severe) Mod to Severe Depletion Muscle Mass (Severe) Mod to Severe Depletion Is there a minimum of two criteria Yes selected? Query Text:Check all the applicable criteria. A minimum of two criteria are recommended for diagnosis of either severe or non-severe malnutrition. Intervention/Recommendation Comments 1. Contiue with current tube feeding order, adequate to meet nturitional needs. 2. Recommend swallow eval as needed if pt extubated and appropriate to resume oral diet. Pt's diet at SNF: renal, finely chopped, 1200ml fluid restriction, 1 can renal oral supplement. Expected Outcomes/Goals Expected Outcomes/Goals 1. Pt to meet 100% of estimated nutritional needs while on tube feeding with tolerance.
== END 2016-11-09 21:25 | DRG 133 ==
LOC: ER 17:46 → TELE 20:34 → ICU 11-04 20:41 → TELE 11-08 17:00
PROVIDERS: ADMIT Internal Medicine; ATTEND Internal Medicine
PROC: 0BH17EZ Insertion of Endotracheal Airway into Trachea, Via Natural or Artificial Opening (ICD-10-PCS; principal; 2016-11-04)
PROC: 5A1945Z Respiratory Ventilation, 24-96 Consecutive Hours (ICD-10-PCS; 2016-11-04)
PROC: 5A1D60Z (ICD-10-PCS; 2016-11-04)
DX: J96.01 Acute respiratory failure with hypoxia (principal); I50.33 Acute on chronic diastolic (congestive) heart failure; N18.6 End stage renal disease; I24.9 Acute ischemic heart disease, unspecified; J96.02 Acute respiratory failure with hypercapnia; J44.9 Chronic obstructive pulmonary disease, unspecified; E87.70 Fluid overload, unspecified; I13.2 Hypertensive heart and chronic kidney disease with heart failure and with stage 5 chronic kidney disease, or end stage renal disease; I27.2 Other secondary pulmonary hypertension; D63.1 Anemia in chronic kidney disease; R53.81 Other malaise; K21.9 Gastro-esophageal reflux disease without esophagitis; E03.9 Hypothyroidism, unspecified; F41.9 Anxiety disorder, unspecified; D50.9 Iron deficiency anemia, unspecified; Z95.2 Presence of prosthetic heart valve; Z99.2 Dependence on renal dialysis; Z79.899 Other long term (current) drug therapy
CPT/HCPCS: 36415-UA; 36600-90; 71010-TC; 71020-TC; 74000-TC; 80048-TC; 80053-TC; 80061-TC; 80074-90; 82140-TC; 82248-TC; 82803-TC; 83735-TC; 83880-TC; 84100-TC; 84443-TC; 84484-TC; 85007-TC; 85027-TC; 87070; 93005; 94002; 94003; 94640; 94660; 94664; 94760; 96379; 99201; C9113; J1644; J2270; J2704; J7030; P9046; X6206; X6452; Z7610